=== PATIENT | male | born 1965 | race Hispanic/Latino ===

== ENCOUNTER 2016-06-19 01:21 | Emergency (ER) | payer MEDICAID, OTHER ==
[2016-06-19 01:28] VITALS: BMI 27.3
--- NOTE | 2016-06-19 01:43 | ED PDOC ---
Arrival/HPI - General Chief Complaint: Chest Pain Time Seen by Provider: 06/19/16 01:30 Historian: Patient - History of Present Illness Narrative History of Present Illness (Text): 06/19/16 01:39 Albert Cee is a 51 year old male, with a history of substance abuse, presents to the emergency department complaining of intermittent chest pain for past 2 days. Describes the quality of pain as a cramping sensation to the chest which radiates down to left arm. Patient evaluated by PMD who advised patient to present to emergency department if symptoms persisted. Denies fever, chills, headache, dizziness, difficulty breathing, nausea, vomiting, diarrhea, urinary symptoms or any other complaints at this time. Time/Duration: < week (2 days ) Symptom Onset: Gradual Symptom Course: Intermittent Quality: Cramping Activities at Onset: Light Context: Home Past Medical History - Provider Review Nursing Documentation Reviewed: Yes - Past History Past History: No Previous - Infectious Disease Hx of Infectious Diseases: None - Tetanus Immunization Tetanus Immunization: Unknown - Past Medical History Past Medical History: Non-Contributing - Cardiac Hx Cardiac Disorders: No Hx Hypertension: No - Pulmonary Hx Respiratory Disorders: No Hx Tuberculosis: No - Neurological Hx Neurological Disorder: No Hx Seizures: No - HEENT Hx HEENT Disorder: No - Renal Hx Renal Disorder: No - Endocrine/Metabolic Hx Endocrine Disorders: No - Hematological/Oncological Hx Blood Disorders: No Hx Cancer: No - Integumentary Hx Dermatological Disorder: No - Musculoskeletal/Rheumatological Hx Back Pain: Yes (chronic) Hx Falls: No Hx Herniated Disk: Yes Other/Comment: knee pain - Gastrointestinal Hx Gastrointestinal Disorders: No - Genitourinary/Gynecological Hx Genitourinary Disorders: No Hx Sexually Transmitted Diseases: No - Psychiatric Hx Anxiety: Yes Hx Depression: Yes Hx Substance Use: Yes (cannabis) - Past Surgical History Past Surgical History: Non-Contributing - Surgical History Other/Comment: L4 L5 herniated disk /r ankle/r knee x2/l knee x2/r shoulder/ fossa l-3,l-4,l-5 - Anesthesia Hx Anesthesia: Yes Hx Anesthesia Reactions: No Hx Malignant Hyperthermia: No - Suicidal Assessment Feels Threatened In Home Enviroment: No Family/Social History - Physician Review Nursing Documentation Reviewed: Yes Family/Social History: No Known Family HX Smoking Status: Heavy Smoker > 10 Cigarettes Daily Hx Alcohol Use: Yes (as per patient he stopped drinking) Hx Substance Use: Yes (cannabis) Substance used: pcp last wk Hx Substance Use Treatment: No Allergies/Home Meds Allergies/Adverse Reactions: Allergies No Known Allergies Allergy (Verified 05/10/16 02:45) Home Medications: Home Meds Medication Instructions Recorded Confirmed Alprazolam [Xanax] 0.5 mg PO DAILY 10/25/15 05/10/16 oxyCODONE [oxyCODONE Immediate 30 mg PO 5XD 10/25/15 05/10/16 Release Tab] Morphine [Morphine Sulfate] 15 mg PO TID 05/10/16 05/10/16 Review of Systems - Physician Review All systems were reviewed & negative as marked: Yes - Review of Systems Constitutional: Normal. absent: Fatigue, Fevers Respiratory: absent: SOB, Cough, Sputum Cardiovascular: Chest Pain. absent: Palpitations Gastrointestinal: absent: Abdominal Pain, Diarrhea, Nausea, Vomiting Musculoskeletal: Other (radiating down left arm ) Neurological: Normal. absent: Headache, Dizziness Psychiatric: Normal Physical Exam Vital Signs Reviewed: Yes Vital Signs Temp Pulse Resp BP Pulse Ox 06/19/16 05:53 75 18 120/78 99 06/19/16 03:31 62 16 118/69 96 06/19/16 01:30 97.7 F 57 L 16 115/70 98 Temperature: Afebrile Blood Pressure: Normal Pulse: Regular Respiratory Rate: Normal Appearance: Positive for: Well-Appearing, Non-Toxic, Comfortable Pain Distress: None Mental Status: Positive for: Alert and Oriented X 3 - Systems Exam Head: Present: Atraumatic, Normocephalic Pupils: Present: PERRL Extroacular Muscles: Present: EOMI Conjunctiva: Present: Normal Respiratory/Chest: Present: Clear to Auscultation, Good Air Exchange. No: Respiratory Distress, Accessory Muscle Use Cardiovascular: Present: Regular Rate and Rhythm, Normal S1, S2. No: Murmurs Abdomen: Present: Normal Bowel Sounds. No: Tenderness, Distention, Peritoneal Signs Upper Extremity: Present: Normal Inspection. No: Cyanosis, Edema Lower Extremity: Present: Normal Inspection. No: Edema Neurological: Present: GCS=15, CN II-XII Intact, Speech Normal Skin: Present: Warm, Dry, Normal Color. No: Rashes Psychiatric: Present: Alert, Oriented x 3, Normal Insight, Normal Concentration Medical Decision Making ED Course and Treatment: 06/19/16 01:45 Impression: A 51 year old male who presents to the emergency department complaining of chest pain radiating to left arm for 2 days. Plan: -- EKG -- Labs, cardiac enzymes -- Chest X-ray -- Urinalysis -- Reassess and disposition Progress Notes: 06/19/16 01:46 EKG reviewed by me: NSR @ 60 bpm. normal axis. normal interval. 06/19/16 05:45 EKG reviewed by me: NSR @ 60 bpm. Normal [place]. Normal interval. Patient was offered admission to hospital for chest pain, but patient states he wants to sign out against medical advice. I personally advised patient to stay in the hospital, but patient states he understands the risks of leaving and is persistent. The patient is choosing to leave against medical advice. I have personally explained to the patient that choosing to do so may result in permanent bodily harm or . I have discussed at great length that without further evaluation and monitoring there may be unforeseen circumstances and/or deterioration causing permanent bodily harm or as a result of their choice. The patient is alert, oriented, and shows the mental capacity to make clear decisions regarding the patients health care at this time. The patient continues to wish to leave against medical advice. The patient has been advised that they should return to the emergency room immediately if they change their mind at any time, or if their condition begins to change or worsen in any way. - Lab Interpretations Lab Results: 06/19/16 02:40 06/19/16 02:40 Lab Results 06/19/16 02:40: WBC 8.9, RBC 4.43, Hgb 13.2 L, Hct 38.9 L, MCV 87.8, MCH 29.8, MCHC 33.9, RDW 13.8, Plt Count 323, MPV 10.8, Gran % 54.2, Lymph % (Auto) 35.6 H , [place] % (Auto) 8.0 H, Eos % (Auto) 2.0, Baso % (Auto) 0.2, Gran # 4.80, Lymph # 3.2, [place] # 0.7 H, Eos # 0.2, Baso # 0.02, Sodium 138, Potassium 3.8, Chloride 103, Carbon Dioxide 28, Anion Gap 11, BUN 22 H, Creatinine 0.8, Est GFR ( Amer) > 60, Est GFR (Non-Af Amer) > 60, Random Glucose 94, Calcium 8.7, Magnesium 2.0, Total Bilirubin 0.4, AST 23, ALT 15, Alkaline Phosphatase 63 , Lactate Dehydrogenase 459, Total Creatine Kinase 44, Troponin I < 0.01, Total Protein 6.9, Albumin 3.6, Globulin 3.3, Albumin/Globulin Ratio 1.1 I have reviewed the lab results: Yes - RAD Interpretation Radiology Orders: 06/19/16 01:40 CHEST PORTABLE [RAD] Stat - EKG Interpretation Interpreted by ED Physician: Yes Type: 12 lead EKG - Scribe Statement The provider has reviewed the documentation as recorded by the Jesus Knapp Provider Attestation: All medical record entries made by the Jesus were at my direction and personally dictated by me. I have reviewed the chart and agree that the record accurately reflects my personal performance of the history, physical exam, medical decision making, and the department course for this patient. I have also personally directed, reviewed, and agree with the discharge instructions and disposition. Disposition/Present on Arrival - Present on Arrival Any Indicators Present on Arrival: No History of DVT/PE: No History of Uncontrolled Diabetes: No Urinary Catheter: No History of Decub. Ulcer: No History Surgical Site Infection Following: None - Disposition Have Diagnosis and Disposition been Completed?: Yes Diagnosis: Chest pain Disposition: AGAINST MEDICAL ADVICE Disposition Time: 06:00 Condition: UNKNOWN Discharge Instructions (ExitCare): Chest Pain (ED)
[2016-06-19 02:47] LABS: ADD MANUAL DIFF? NO
[2016-06-19 03:06] LABS: BASO # 0.02 K/mm3 (0.0-2.0); BASO % 0.2 % (0.0-3.0); EOS # 0.2 (0.0-0.7); GRAN % 54.2 % (50.0-68.0); HEMATOCRIT 38.9 % (42.0-52.0); LYMPH # 3.2 (1.2-3.4); LYMPH % 35.6 % (22.0-35.0); MEAN CELL VOLUME 87.8 fL (80.0-105.0); MEAN CORPUSCULAR HEMOGLOBIN 29.8 pg (25.0-35.0); MEAN CORPUSCULAR HGB CONC 33.9 g/dl (31.0-37.0); MEAN PLATELET VOLUME 10.8 fl (7.0-11.0); MONO # 0.7 (0.1-0.6); PLATELET COUNT 323 10^3/uL (120.0-450.0); RED CELL DISTRIBUTION WIDTH 13.8 % (11.5-14.5); WHITE BLOOD COUNT 8.9 10^3/ul (4.5-11.0)
[2016-06-19 03:10] LABS: ALB/GLOB RATIO 1.1 (1.1-1.8); ALKALINE PHOSPHATASE 63 U/L (38-133); ALT/SGPT 15 U/L (7-56); AST/SGOT 23 U/L (15-59); BILIRUBIN,TOTAL 0.4 mg/dL (0.2-1.3); BLOOD UREA NITROGEN 22 mg/dL (7-21); CALCIUM 8.7 mg/dL (8.4-10.5); CARBON DIOXIDE 28 mmol/L (21-33); CHLORIDE 103 mmol/L (98-107); GFR AFRICAN-AMERICAN > 60; GLUCOSE,RANDOM 94 mg/dL (70-110); POTASSIUM 3.8 mmol/L (3.6-5.0); SODIUM 138 mmol/L (132-148); TOTAL PROTEIN 6.9 g/dL (5.8-8.3)
[2016-06-19 03:22] VITALS: TEMP 97.7
[2016-06-19 03:23] LABS: TROPONIN I < 0.01 ng/mL
[2016-06-19 05:54] VITALS: BP 120/78; PULSE 75; RESP 18; O2SAT 99
--- NOTE | 2016-06-19 08:33 | RAD ---
HISTORY: cp COMPARISON: 05/10/2016 FINDINGS: LUNGS: No active pulmonary disease. PLEURA: No significant pleural effusion identified, no pneumothorax apparent. CARDIOVASCULAR: Normal. OSSEOUS STRUCTURES: No significant abnormalities. VISUALIZED UPPER ABDOMEN: Normal. OTHER FINDINGS: None. IMPRESSION: No active disease.
--- NOTE | 2016-06-19 18:33 | CARD ---
APPROVED REPORT EKG Measurement Heart [id number] <Conclusion> Normal sinus rhythm Normal ECG
== END 2016-06-19 06:04 | disposition left against medical advice (07) ==
LOC: ED 01:21
DX: R07.9 Chest pain, unspecified (principal); F17.210 Nicotine dependence, cigarettes, uncomplicated

== ENCOUNTER 2016-06-23 01:33 | Observation (INO) | payer OTHER ==
[2016-06-23 01:35] VITALS: BMI 60.3
--- NOTE | 2016-06-23 01:48 | ED PDOC ---
Arrival/HPI - General Chief Complaint: Chest Pain Time Seen by Provider: 06/23/16 01:34 Historian: Patient - History of Present Illness Narrative History of Present Illness (Text): 06/23/16 01:48 David Cee is a 51 year old male smoker, whose past medical history includes chronic back pain and substance abuse, who presents to the ED complaining of mid -sternal chest pain tonight. Patient denies any relieving or exacerbating factors. Patient denies any fever, chills, shortness of breath, nausea, vomiting , diarrhea, urinary symptoms, neck pain, headache, dizziness, or any other complaints. PMD: Dr. Melvi Welsh Time/Duration: Other (tonight) Symptom Onset: Gradual Symptom Course: Unchanged Activities at Onset: Rest, Light Context: Home Past Medical History - Provider Review Nursing Documentation Reviewed: Yes - Past History Past History: No Previous - Infectious Disease Hx of Infectious Diseases: None - Tetanus Immunization Tetanus Immunization: Unknown - Past Medical History Past Medical History: Non-Contributing - Cardiac Hx Cardiac Disorders: No Hx Hypertension: No - Pulmonary Hx Respiratory Disorders: No Hx Tuberculosis: No - Neurological Hx Neurological Disorder: No Hx Seizures: No - HEENT Hx HEENT Disorder: No - Renal Hx Renal Disorder: No - Endocrine/Metabolic Hx Endocrine Disorders: No - Hematological/Oncological Hx Blood Disorders: No Hx Cancer: No - Integumentary Hx Dermatological Disorder: No - Musculoskeletal/Rheumatological Hx Back Pain: Yes (chronic) Hx Falls: No Hx Herniated Disk: Yes Other/Comment: knee pain - Gastrointestinal Hx Gastrointestinal Disorders: No - Genitourinary/Gynecological Hx Genitourinary Disorders: No Hx Sexually Transmitted Diseases: No - Psychiatric Hx Anxiety: Yes Hx Depression: Yes Hx Substance Use: Yes (cannabis) - Past Surgical History Past Surgical History: Non-Contributing - Surgical History Other/Comment: L4 L5 herniated disk /r ankle/r knee x2/l knee x2/r shoulder/ fossa l-3,l-4,l-5 - Anesthesia Hx Anesthesia: Yes Hx Anesthesia Reactions: No Hx Malignant Hyperthermia: No - Suicidal Assessment Feels Threatened In Home Enviroment: No Family/Social History - Physician Review Nursing Documentation Reviewed: Yes Family/Social History: No Known Family HX Smoking Status: Heavy Smoker > 10 Cigarettes Daily Hx Alcohol Use: Yes (as per patient he stopped drinking) Hx Substance Use: Yes (cannabis) Substance used: pcp last wk Hx Substance Use Treatment: No Allergies/Home Meds Allergies/Adverse Reactions: Allergies No Known Allergies Allergy (Verified 05/10/16 02:45) Home Medications: Home Meds Medication Instructions Recorded Confirmed Alprazolam [Xanax] 0.5 mg PO DAILY 10/25/15 05/10/16 oxyCODONE [oxyCODONE Immediate 30 mg PO 5XD 10/25/15 05/10/16 Release Tab] Morphine [Morphine Sulfate] 15 mg PO TID 05/10/16 05/10/16 Review of Systems - Physician Review All systems were reviewed & negative as marked: Yes - Review of Systems Constitutional: Normal. absent: Fevers Eyes: Normal ENT: Normal Respiratory: Normal. absent: SOB Cardiovascular: Chest Pain Gastrointestinal: Normal. absent: Abdominal Pain, Diarrhea, Nausea, Vomiting Genitourinary Male: Normal. absent: Dysuria, Frequency, Hematuria, Urinary Output Changes Musculoskeletal: Normal. absent: Neck Pain Skin: Normal Neurological: Normal. absent: Headache, Dizziness Endocrine: Normal Hemo/Lymphatic: Normal Psychiatric: Normal Physical Exam Vital Signs Reviewed: Yes Vital Signs Temp Pulse Resp BP Pulse Ox 06/23/16 04:48 97.7 F 58 L 17 134/74 94 L 06/23/16 02:02 98.0 F 75 17 129/62 94 L Temperature: Afebrile Blood Pressure: Normal Pulse: Regular Respiratory Rate: Normal Appearance: Positive for: Well-Appearing, Non-Toxic, Comfortable Pain Distress: None Mental Status: Positive for: Alert and Oriented X 3 - Systems Exam Head: Present: Atraumatic, Normocephalic Pupils: Present: PERRL Extroacular Muscles: Present: EOMI Conjunctiva: Present: Normal Mouth: Present: Moist Mucous Membranes Neck: Present: Normal Range of Motion Respiratory/Chest: Present: Clear to Auscultation, Good Air Exchange. No: Respiratory Distress, Accessory Muscle Use Cardiovascular: Present: Regular Rate and Rhythm, Normal S1, S2. No: Murmurs Abdomen: Present: Normal Bowel Sounds. No: Tenderness, Distention, Peritoneal Signs Upper Extremity: Present: Normal Inspection. No: Cyanosis, Edema Lower Extremity: Present: Normal Inspection. No: Edema Neurological: Present: GCS=15, CN II-XII Intact, Speech Normal Skin: Present: Warm, Dry, Normal Color. No: Rashes Psychiatric: Present: Alert, Oriented x 3, Normal Insight, Normal Concentration Medical Decision Making ED Course and Treatment: 06/23/16 01:48 Impression: 51 year old male complaining of chest pain. Differential Diagnosis included but are not limited to: Plan: --EKG --Chest Xray --Urinalysis --Labs, cardiac enzymes -- Reassess and disposition Prior Visits: Notes and results from previous visits were reviewed. On 06/19/16 patient was seen for chest pain. Patient signed out against medical advice. Progress Notes: EKG: Ordered, reviewed, and independently interpreted the EKG. Rate : 71 BPM Rhythm : NSR Interpretation : No ST-segment elevations or depressions, no T-wave inversions, normal intervals. Comparison : No acute change from previous EKG on 06/19/16. 06/23/16 03:00 Reviewed radiology, Chest X-ray shows no active disease. 06/23/16 03:[address] Welsh, who is aware and agrees with plan. Accepts pt in to his service. Pt will go to Telemetry observation for chest pain. Pt is no acute distress. Discussed results and hospital observation plan with pt , who is aware and verbalizes understanding. - Lab Interpretations Lab Results: 06/23/16 01:53 06/23/16 01:53 Lab Results 06/23/16 01:53: WBC 7.0 D, RBC 4.52, Hgb 13.3 L, Hct 39.6 L, MCV 87.6, MCH 29.4 , MCHC 33.6, RDW 13.8, Plt Count 327, MPV 10.9, Gran % 45.7 L, Lymph % (Auto) 44.2 H, [place] % (Auto) 7.2 H, Eos % (Auto) 2.6, Baso % (Auto) 0.3, Gran # 3.19, Lymph # 3.1, [place] # 0.5, Eos # 0.2, Baso # 0.02, Sodium 140, Potassium 3.7, Chloride 104, Carbon Dioxide 27, Anion Gap 13, BUN 23 H, Creatinine 0.9, Est GFR ( Amer) > 60, Est GFR (Non-Af Amer) > 60, Random Glucose 152 H, Calcium 8.9, Magnesium 2.1, Total Bilirubin 0.4, AST 24, ALT 33, Alkaline Phosphatase 67, Lactate Dehydrogenase 482, Total Creatine Kinase 68, Troponin I < 0.01, Total Protein 7.4, Albumin 3.9, Globulin 3.5, Albumin/Globulin Ratio 1.1 I have reviewed the lab results: Yes - RAD Interpretation Narrative RAD Interpretations (Text): Chest X-ray shows no active disease. Radiology Orders: 06/23/16 01:40 CHEST PORTABLE [RAD] Stat Call Center Manager: ED Physician - EKG Interpretation Interpreted by ED Physician: Yes Type: 12 lead EKG - Medication Orders Current Medication Orders: Discontinued Medications Acetaminophen (Tylenol 325mg Tab) 650 mg PO Q4H PRN PRN Reason: Fever >100.5 F Aspirin (Ecotrin) 325 mg PO STAT STA Stop: 06/23/16 02:23 Last Admin: 06/23/16 05:14 Dose: 325 MG Nitroglycerin (Nitro-Bid 2% Oint) 1 ea TOP ONCE STA Stop: 06/23/16 03:35 Last Admin: 06/23/16 05:14 Dose: 1 EA - Scribe Statement The provider has reviewed the documentation as recorded by the Jesus Travis training under Venus Hale. All medical record entries made by the Jesus were at my direction and personally dictated by me. I have reviewed the chart and agree that the record accurately reflects my personal performance of the history, physical exam, medical decision making, and the department course for this patient. I have also personally directed, reviewed, and agree with the discharge instructions and disposition. Disposition/Present on Arrival - Present on Arrival Any Indicators Present on Arrival: No History of DVT/PE: No History of Uncontrolled Diabetes: No Urinary Catheter: No History of Decub. Ulcer: No History Surgical Site Infection Following: None - Disposition Have Diagnosis and Disposition been Completed?: Yes Diagnosis: Chest pain Disposition: HOSPITALIZED Disposition Time: 03:35 Condition: FAIR
[2016-06-23 02:03] VITALS: O2SAT 94
[2016-06-23 02:10] LABS: ADD MANUAL DIFF? NO
[2016-06-23 02:16] LABS: BASO # 0.02 K/mm3 (0.0-2.0); BASO % 0.3 % (0.0-3.0); EOS # 0.2 (0.0-0.7); EOS % 2.6 % (1.5-5.0); GRAN # 3.19 (1.4-6.5); GRAN % 45.7 % (50.0-68.0); HEMATOCRIT 39.6 % (42.0-52.0); LYMPH # 3.1 (1.2-3.4); LYMPH % 44.2 % (22.0-35.0); MEAN CELL VOLUME 87.6 fL (80.0-105.0); MEAN CORPUSCULAR HEMOGLOBIN 29.4 pg (25.0-35.0); MEAN CORPUSCULAR HGB CONC 33.6 g/dl (31.0-37.0); MEAN PLATELET VOLUME 10.9 fl (7.0-11.0); MONO # 0.5 (0.1-0.6); MONO % 7.2 % (1.0-6.0); PLATELET COUNT 327 10^3/uL (120.0-450.0); RED CELL DISTRIBUTION WIDTH 13.8 % (11.5-14.5)
[2016-06-23] MEDS ORDERED: Aspirin 325 mg EC Tablets PO STA (02:22)
[2016-06-23 02:26] LABS: ALB/GLOB RATIO 1.1 (1.1-1.8); ALKALINE PHOSPHATASE 67 U/L (38-133); ALT/SGPT 33 U/L (7-56); AST/SGOT 24 U/L (15-59); BILIRUBIN,TOTAL 0.4 mg/dL (0.2-1.3); BLOOD UREA NITROGEN 23 mg/dL (7-21); CALCIUM 8.9 mg/dL (8.4-10.5); CARBON DIOXIDE 27 mmol/L (21-33); CHLORIDE 104 mmol/L (98-107); GFR AFRICAN-AMERICAN > 60; GLUCOSE,RANDOM 152 mg/dL (70-110); MAGNESIUM 2.1 mg/dL (1.7-2.2); POTASSIUM 3.7 mmol/L (3.6-5.0); SODIUM 140 mmol/L (132-148); TOTAL PROTEIN 7.4 g/dL (5.8-8.3)
[2016-06-23 02:38] LABS: TROPONIN I < 0.01 ng/mL
[2016-06-23] MEDS ORDERED: Nitroglycerin 2% Ointment Foilpak UD TOP STA (03:34)
--- NOTE | 2016-06-23 08:03 | RAD ---
HISTORY: cp COMPARISON: No prior. FINDINGS: LUNGS: No active pulmonary disease. PLEURA: No significant pleural effusion identified, no pneumothorax apparent. CARDIOVASCULAR: Normal. OSSEOUS STRUCTURES: No significant abnormalities. VISUALIZED UPPER ABDOMEN: Normal. OTHER FINDINGS: None. IMPRESSION: No active disease.
[2016-06-23 11:40] VITALS: BP 96/63; PULSE 54; RESP 20; TEMP 98.2
--- NOTE | 2016-06-23 14:08 | HP ---
HISTORY OF PRESENT ILLNESS: The patient is a 51-year-old male with a history of chronic low back shahla n and opiate dependence who presented to the Emergency Department complaining of chest pain which was nonradiating. The patient denied any shortness of breath. No nausea, no vomiting, no diaphoresis. He was admitted to the telemetry unit for observation. PAST MEDICAL HISTORY: Negative for hypertension, diabetes or heart disease. PAST SURGICAL HISTORY: The patient has no significant past surgical history. patient has a history of herniated disks and chronic low back pain. CURRENT MEDICATIONS: Include oxycodone 30 mg 5 times per day and MS Contin 30 mg 3 times per day as well as Xanax 0.5 mg once a day. ALLERGIES: The patient has no known allergies. SOCIAL HISTORY: The patient has an approximately 63-76-cbvg-year history of tobacco use. There is n o alcohol use or IV drug use. FAMILY HISTORY: Noncontributory. REVIEW OF SYSTEMS: As above. PHYSICAL EXAMINATION: GENERAL: The patient is a well-developed male in no acute distress. HEENT: Head is normocephalic, atraumatic. Pupils equal, round, reactive to light. Extraocular move ments are intact. NECK: Supple with no thyromegaly, no carotid bruit. LUNGS: Clear. HEART: Regular rate and rhythm. ABDOMEN: Soft, nontender. Bowel sounds are normoactive. EXTREMITIES: Without cyanosis, clubbing or edema. There is decreased range of motion of the lumbosa cral spine secondary to pain. NEUROLOGIC: The patient is awake and oriented x 3 without focal sensory or motor deficits. SKIN: Warm and dry. LABORATORY DATA: WBC 7.0, hemoglobin 13.3, hematocrit 39.6. Sodium 140, potassium 3.7, chloride 104 , CO2 27, BUN 23, creatinine 0.9, glucose 152. Troponin is less than 0.01. Chest x-ray shows no act sonu disease. EKG shows sinus rhythm with a rate of 71 with no acute ischemic changes. IMPRESSION: 1. Chest pain/atypical. 2. Chronic low back pain with opiate dependence. 3. Tobacco abuse, possible underlying chronic obstructive pulmonary disease. PLAN: We will obtain a cardiology consult with Drs. Arguello/Melvin and possible discharge to home in [facility] with followup for stress test as an outpatient. The patient was counseled regarding t obacco cessation. Richard Welsh JD, MD cc: [id number] TT: 06/23/2016 14:07:38 tn
--- NOTE | 2016-06-23 14:57 | CARD ---
APPROVED REPORT EKG Measurement Heart [id number] <Conclusion> Normal sinus rhythm Normal ECG
--- NOTE | 2016-06-23 20:41 | DS ---
HOSPITAL COURSE: The patient is a 51-year-old male who was admitted to the telemetry unit for [facility] for chest pain. Troponin was negative and EKG showed sinus rhythm with a rate of 71 with no ac cathy changes. The patient denies any chest pain or shortness of breath at the present time and is med ically stable for discharge. PHSYCIAL EXAMINATION: As per admission history and physical dictated 06/23/2016. IMPRESSION: 1. Atypical chest pain. 2. Mild hyperglycemia. 3. Chronic low back pain with opiate dependence. PLAN: The patient will be discharged to home on the following medications: Oxycodone 150 mg 5 times daily, MS Contin 30 mg 3 times daily, and Xanax 0.5 mg once a day. He will be maintained on a heart -healthy diet. Activities ad libitum. He will be seen in my office as an outpatient within the next 1-2 weeks and will follow up with cardiology for stress test as well. He was advised to return to [facility] Emergency Room should his chest pain reoccur. Richard Welsh JD, MD cc: [id number] TT: 06/23/2016 20:40:45 yana
--- NOTE | 2016-06-23 21:21 | CON ---
DATE: 06/23/2016 SERVICE: Cardiology. REASON FOR CONSULTATION: Cardiac evaluation, chest pain, patient discharged home, on way home. BRIEF CLINICAL HISTORY: A 51-year-old male with history of chronic back pain and opiate dependence, presented to the Emergency Room with complaint of chest pain underneath the left breast, nonradiating . Denies any chest pain, dyspnea on exertion or chest pain on exertion. PAST MEDICAL HISTORY: Significant for back pain, on multiple narcotics, and Xanax home. PAST SURGICAL HISTORY: Nothing significant. SOCIAL HISTORY: Active tobacco abuse, 1 pack a day. Denies any history of substance abuse. Sociall y drinks. ALLERGIES: No known drug allergy. CURRENT MEDICATIONS: The patient is taking oxycodone, morphine and Xanax. REVIEW OF SYSTEMS: As per HPI. PHYSICAL EXAMINATION: VITAL SIGNS: Temperature afebrile, heart rate 54, blood pressure 134/74. HEENT: PERRLA. Extraocular muscles intact. NECK: Supple. No carotid bruits. No thyromegaly. CHEST: Clear to auscultation. HEART: S1, S2 regular. ABDOMEN: Soft. EXTREMITIES: Clubbing and cyanosis negative. EKG showed normal sinus, no acute changes, within normal limits. LABORATORY DATA: Blood workup as follows: WBC 7, hemoglobin 13, hematocrit 39.6, platelet count 327 . Chemistry shows sodium 140, potassium , chloride 104, carbon dioxide 27, anion gap of 13, BUN 23, creatinine 0.9, troponin 0.01. IMPRESSION: Atypical chest pain, but given the history of substance abuse and lifestyle as well as r andom sugar positive, diabetic, so need to rule out coronary artery disease. Since the patient is be ing discharged, in the process of going home, we will schedule a stress test in 1-2 weeks. Discussed with the patient. The patient agreed. Will schedule for a stress test as outpatient. We will foll ow with you. Thank you, Dr. Welsh, for providing the opportunity in taking care of the patient. We will follow wi th you. Kade Charles MD cc:Richard Welsh JD, MD [phone] TT: 06/23/2016 21:21:37 Confirmation # [id number] Dictation # [id number] rn
== END 2016-06-23 13:30 | disposition home or self-care (01) ==
LOC: ED 01:33 → ERH 03:33 → 2RSO 05:48
PROVIDERS: ADMIT Internal Medicine; ATTEND Internal Medicine
DX: R07.89 Other chest pain (principal); E11.65 Type 2 diabetes mellitus with hyperglycemia; F11.20 Opioid dependence, uncomplicated; G89.29 Other chronic pain; Z72.0 Tobacco use; M54.9 Dorsalgia, unspecified; M51.26 Other intervertebral disc displacement, lumbar region; M25.569 Pain in unspecified knee; F41.9 Anxiety disorder, unspecified; F32.89 Other specified depressive episodes; R40.2412 Glasgow coma scale score 13-15, at arrival to emergency department; J44.9 Chronic obstructive pulmonary disease, unspecified
CPT/HCPCS: 71010; 80053; 82550; 83615; 83735; 84484; 85025; 93005; 99284; G0378

== ENCOUNTER 2016-06-24 22:36 | Observation (INO) | payer OTHER ==
[2016-06-24 22:37] VITALS: BMI 29.0
--- NOTE | 2016-06-24 23:05 | ED PDOC ---
Arrival/HPI - General Chief Complaint: Chest Pain Time Seen by Provider: 06/24/16 22:37 Historian: Patient - History of Present Illness Narrative History of Present Illness (Text): 06/24/16 23:04 David Cee is a 51 year old male smoker, whose past medical history includes chronic back pain and substance abuse, who presents to the ED complaining of mid -sternal chest pain tonight. Patient was recently seen in the Emergency department for similar complaints on 06/22/2016 and admitted to the hospital for further evaluation. Patient denies any fever, chills, shortness of breath, nausea, vomiting, diarrhea, urinary symptoms, neck pain, headache, dizziness, or any other complaints. PMD: Dr. Melvi Welsh Time/Duration: Other (tonight) Symptom Onset: Gradual Symptom Course: Unchanged Activities at Onset: Rest, Light Context: Home Past Medical History - Provider Review Nursing Documentation Reviewed: Yes - Past History Past History: No Previous - Infectious Disease Hx of Infectious Diseases: None - Tetanus Immunization Tetanus Immunization: Unknown - Past Medical History Past Medical History: Non-Contributing - Cardiac Hx Cardiac Disorders: No Hx Hypertension: No - Pulmonary Hx Respiratory Disorders: No Hx Tuberculosis: No - Neurological Hx Neurological Disorder: No Hx Seizures: No - HEENT Hx HEENT Disorder: No - Renal Hx Renal Disorder: No - Endocrine/Metabolic Hx Endocrine Disorders: No - Hematological/Oncological Hx Blood Disorders: No Hx Cancer: No - Integumentary Hx Dermatological Disorder: No - Musculoskeletal/Rheumatological Hx Back Pain: Yes (chronic) Hx Falls: No Hx Herniated Disk: Yes Other/Comment: knee pain - Gastrointestinal Hx Gastrointestinal Disorders: No - Genitourinary/Gynecological Hx Genitourinary Disorders: No Hx Sexually Transmitted Diseases: No - Psychiatric Hx Anxiety: Yes Hx Depression: Yes Hx Substance Use: Yes (cannabis) - Past Surgical History Past Surgical History: Non-Contributing - Surgical History Other/Comment: L4 L5 herniated disk /r ankle/r knee x2/l knee x2/r shoulder/ fossa l-3,l-4,l-5 - Anesthesia Hx Anesthesia: Yes Hx Anesthesia Reactions: No Hx Malignant Hyperthermia: No - Suicidal Assessment Feels Threatened In Home Enviroment: No Family/Social History - Physician Review Nursing Documentation Reviewed: Yes Family/Social History: No Known Family HX Smoking Status: Heavy Smoker > 10 Cigarettes Daily Hx Alcohol Use: Yes (as per patient he stopped drinking) Hx Substance Use: Yes (cannabis) Substance used: pcp last wk Hx Substance Use Treatment: No Allergies/Home Meds Allergies/Adverse Reactions: Allergies No Known Allergies Allergy (Verified 05/10/16 02:45) Home Medications: Home Meds Medication Instructions Recorded Confirmed Alprazolam [Xanax] 0.5 mg PO DAILY 10/25/15 05/10/16 oxyCODONE [oxyCODONE Immediate 30 mg PO 5XD 10/25/15 05/10/16 Release Tab] Morphine [Morphine Sulfate] 15 mg PO TID 05/10/16 05/10/16 Review of Systems - Physician Review All systems were reviewed & negative as marked: Yes - Review of Systems Constitutional: Normal. absent: Fevers Eyes: Normal ENT: Normal Respiratory: Normal. absent: SOB, Cough Cardiovascular: Chest Pain Gastrointestinal: Normal. absent: Abdominal Pain, Diarrhea, Nausea, Vomiting Genitourinary Male: Normal. absent: Dysuria, Frequency, Hematuria, Urinary Output Changes Musculoskeletal: Normal. absent: Back Pain, Neck Pain Skin: Normal. absent: Rash Neurological: Normal. absent: Headache, Dizziness Endocrine: Normal Hemo/Lymphatic: Normal Psychiatric: Normal Physical Exam Vital Signs Reviewed: Yes Vital Signs Temp Pulse Resp BP Pulse Ox 06/25/16 01:44 98.0 F 59 L 18 114/64 98 06/24/16 22:49 97.9 F 64 16 127/67 96 Temperature: Afebrile Blood Pressure: Normal Pulse: Regular Respiratory Rate: Normal Appearance: Positive for: Well-Appearing, Non-Toxic, Comfortable Pain Distress: None Mental Status: Positive for: Alert and Oriented X 3 - Systems Exam Head: Present: Atraumatic, Normocephalic Pupils: Present: PERRL Extroacular Muscles: Present: EOMI Conjunctiva: Present: Normal Mouth: Present: Moist Mucous Membranes Neck: Present: Normal Range of Motion Respiratory/Chest: Present: Clear to Auscultation, Good Air Exchange. No: Respiratory Distress, Accessory Muscle Use Cardiovascular: Present: Regular Rate and Rhythm, Normal S1, S2. No: Murmurs Abdomen: Present: Normal Bowel Sounds. No: Tenderness, Distention, Peritoneal Signs Back: Present: Normal Inspection Upper Extremity: Present: Normal Inspection. No: Cyanosis, Edema Lower Extremity: Present: Normal Inspection. No: Edema Neurological: Present: GCS=15, CN II-XII Intact, Speech Normal Skin: Present: Warm, Dry, Normal Color. No: Rashes Psychiatric: Present: Alert, Oriented x 3, Normal Insight, Normal Concentration Medical Decision Making ED Course and Treatment: 06/24/16 23:04 Impression: 51 year old male complaining of mid-sternal chest pain tonight. Plan: -- EKG -- Chest X-ray -- Labs, cardiac enzymes -- Reassess and disposition Prior Visits: Notes and results from previous visits were reviewed. On 06/23/2016, pt was seen in the Emergency department for chest pain. Pt was admitted to the hospital for further evaluation and schedule for outpatient stress test. Progress Notes: Reviewed EKG, NSR at [address]-segment elevations or depressions, no T-wave inversions, normal intervals. 06/24/16 23:[address] Welsh, who is aware and agrees with plan. Accepts pt in to his service. Pt will go to Telemetry observation for chest pain. Requests Dr. Arguello on consult. - Lab Interpretations I have reviewed the lab results: Yes - RAD Interpretation Radiology Orders: 06/24/16 22:50 CHEST PORTABLE [RAD] Stat Market Development Manager: ED Physician - EKG Interpretation Interpreted by ED Physician: Yes Type: 12 lead EKG - Scribe Statement The provider has reviewed the documentation as recorded by the Jesus Hale Provider Attestation: All medical record entries made by the Lucianaibdelon were at my direction and personally dictated by me. I have reviewed the chart and agree that the record accurately reflects my personal performance of the history, physical exam, medical decision making, and the department course for this patient. I have also personally directed, reviewed, and agree with the discharge instructions and disposition. Disposition/Present on Arrival - Present on Arrival Any Indicators Present on Arrival: No History of DVT/PE: No History of Uncontrolled Diabetes: No Urinary Catheter: No History of Decub. Ulcer: No History Surgical Site Infection Following: None - Disposition Have Diagnosis and Disposition been Completed?: Yes Diagnosis: Chest pain Disposition: HOSPITALIZED Disposition Time: 23:17 Patient Plan: Observation Patient Problems: Current Active Problems Problem Status Diagnosed Chest pain Acute Condition: GOOD
[2016-06-24 23:48] LABS: HEMATOCRIT 40.6 % (42.0-52.0); MEAN CELL VOLUME 88.1 fL (80.0-105.0); MEAN CORPUSCULAR HEMOGLOBIN 30.2 pg (25.0-35.0); MEAN CORPUSCULAR HGB CONC 34.2 g/dl (31.0-37.0); MEAN PLATELET VOLUME 10.9 fl (7.0-11.0)
[2016-06-24 23:55] LABS: ALB/GLOB RATIO 1.1 (1.1-1.8); ALKALINE PHOSPHATASE 64 U/L (38-133); ALT/SGPT 27 U/L (7-56); AST/SGOT 26 U/L (15-59); BILIRUBIN,TOTAL 0.5 mg/dL (0.2-1.3); BLOOD UREA NITROGEN 21 mg/dL (7-21); CALCIUM 8.9 mg/dL (8.4-10.5); CARBON DIOXIDE 30 mmol/L (21-33); CHLORIDE 104 mmol/L (98-107); GFR AFRICAN-AMERICAN > 60; GLUCOSE,RANDOM 123 mg/dL (70-110); SODIUM 140 mmol/L (132-148); TOTAL PROTEIN 7.4 g/dL (5.8-8.3)
[2016-06-25] LABS: PARTIAL THROMBOPLASTIN TIME 27.1 Seconds (23.7-30.8)
[2016-06-25 00:10] LABS: TROPONIN I < 0.01 ng/mL
[2016-06-25 06:38] VITALS: BP 142/87; PULSE 60; RESP 19; TEMP 97.5; O2SAT 95
--- NOTE | 2016-06-25 08:07 | RAD ---
HISTORY: Chest pain COMPARISON: 06/23/2016 FINDINGS: LUNGS: The lungs are well inflated and clear. PLEURA: No significant pleural effusion identified, no pneumothorax apparent. CARDIOVASCULAR: Normal. OSSEOUS STRUCTURES: No significant abnormalities. VISUALIZED UPPER ABDOMEN: Normal. OTHER FINDINGS: None. IMPRESSION: No active pulmonary disease.
--- NOTE | 2016-06-25 10:23 | CP.PCM.PN ---
Subjective - Date & Time of Evaluation Date of Evaluation: 06/25/16 Time of Evaluation: 09:20 - Subjective Subjective: Patient has decided to leave AMA for personal reasons. He was admitted for c/o chest pain,the cause of which is not yet ascertained.Given the patient's history it could be due to his substance abuse, or it could be due to a lung pathology or cardiac issues.He needs to undergo further tests to determine this.Not pursuing tests/treatment could result in . Patient states he understands what he is told.but does not want any more tests, examinations, or treatment at this time. He is alert,awake,oriented x 3 and is ambulatory.He is in no clinical distress. Patient was advised to follow up with his PMD and return to ER if needed. He said he will do so,and signed AMA and left. Dr Welsh was notified. Total time spent:25 minb Objective - Vital Signs/Intake and Output Vital Signs (last 24 hours): Temp Pulse Resp BP Pulse Ox 97.5 F L 60 19 142/87 95 06/25/16 06:00 06/25/16 06:00 06/25/16 06:00 06/25/16 06:00 06/25/16 06:00 Intake and Output: 06/25/16 06/25/16 06:59 18:59 Intake Total 0 Output Total 0 Balance 0 - Labs Labs: 06/24/16 23:30 06/24/16 23:30 PT 10.8 Seconds (9.9-11.8) 06/24/16 23:30 INR 1.00 (0.93-1.08) 06/24/16 23:30 APTT 27.1 Seconds (23.7-30.8) 06/24/16 23:30
--- NOTE | 2016-06-25 16:23 | CARD ---
APPROVED REPORT EKG Measurement Heart [id number] <Conclusion> Normal sinus rhythm Normal ECG
--- NOTE | 2016-06-25 16:38 | CARD ---
APPROVED REPORT EKG Measurement Heart [id number] <Conclusion> Poor data quality, interpretation may be adversely affected Normal sinus rhythm Normal ECG
== END 2016-06-25 10:24 | disposition left against medical advice (07) ==
LOC: ED 22:36 → ERH 23:11 → 2RNO 06-25 02:07
PROVIDERS: ADMIT Internal Medicine; ATTEND Internal Medicine
DX: R07.9 Chest pain, unspecified (principal); M54.9 Dorsalgia, unspecified; G89.29 Other chronic pain; M51.26 Other intervertebral disc displacement, lumbar region; M25.569 Pain in unspecified knee; F41.9 Anxiety disorder, unspecified; F32.89 Other specified depressive episodes; Z87.891 Personal history of nicotine dependence; Z87.898 Personal history of other specified conditions
CPT/HCPCS: 71010; 80053; 82550; 83615; 84484; 85027; 85610; 85730; 93005; 99285; G0378

== ENCOUNTER 2016-06-29 21:16 | Emergency (ER) | payer OTHER ==
[2016-06-29 21:21] VITALS: BMI 27.3
--- NOTE | 2016-06-29 21:22 | ED PDOC ---
Arrival/HPI - General Time Seen by Provider: 06/29/16 21:20 Historian: Patient - History of Present Illness Narrative History of Present Illness (Text): 06/29/16 21:21 51 year old male smoker with a past medical history that includes chronic back pain and substance abuse presents to the emergency department with left sided chest pain for last few hours. Patient states he has had this pain before but claims he was never evaluated by a doctor for it. Denies trauma or injury. Patient reports he takes Oxycodone and Morphine for the back pain. No other complaints at this time. PMD: Dr. Richard Welsh Time/Duration: 1 hour Symptom Onset: Sudden Symptom Course: Unchanged Modifying Factors (Text): None Associated Symptoms (Text): None Past Medical History - Provider Review Nursing Documentation Reviewed: Yes - Past History Past History: No Previous - Infectious Disease Hx of Infectious Diseases: None - Tetanus Immunization Tetanus Immunization: Unknown - Past Medical History Past Medical History: Non-Contributing - Cardiac Hx Cardiac Disorders: No Hx Hypertension: No - Pulmonary Hx Respiratory Disorders: No Hx Tuberculosis: No - Neurological Hx Neurological Disorder: No Hx Seizures: No - HEENT Hx HEENT Disorder: No - Renal Hx Renal Disorder: No - Endocrine/Metabolic Hx Endocrine Disorders: No - Hematological/Oncological Hx Blood Disorders: No Hx Cancer: No - Integumentary Hx Dermatological Disorder: No - Musculoskeletal/Rheumatological Hx Back Pain: Yes (chronic) Hx Falls: No Hx Herniated Disk: Yes Other/Comment: knee pain - Gastrointestinal Hx Gastrointestinal Disorders: No - Genitourinary/Gynecological Hx Genitourinary Disorders: No Hx Sexually Transmitted Diseases: No - Psychiatric Hx Anxiety: Yes Hx Depression: Yes Hx Substance Use: Yes (cannabis) - Past Surgical History Past Surgical History: Non-Contributing - Surgical History Other/Comment: L4 L5 herniated disk /r ankle/r knee x2/l knee x2/r shoulder/ fossa l-3,l-4,l-5 - Anesthesia Hx Anesthesia: Yes Hx Anesthesia Reactions: No Hx Malignant Hyperthermia: No - Suicidal Assessment Feels Threatened In Home Enviroment: No Family/Social History - Physician Review Nursing Documentation Reviewed: Yes Family/Social History: Unknown Family HX Smoking Status: Heavy Smoker > 10 Cigarettes Daily Hx Alcohol Use: Yes (as per patient he stopped drinking) Hx Substance Use: Yes (cannabis) Substance used: pcp last wk Hx Substance Use Treatment: No Allergies/Home Meds Allergies/Adverse Reactions: Allergies No Known Allergies Allergy (Verified 06/29/16 21:21) Home Medications: Home Meds Medication Instructions Recorded Confirmed Alprazolam [Xanax] 0.5 mg PO DAILY 10/25/15 06/29/16 oxyCODONE [oxyCODONE Immediate 30 mg PO 5XD 10/25/15 06/29/16 Release Tab] Morphine [Morphine Sulfate] 15 mg PO TID 05/10/16 06/29/16 Review of Systems - Physician Review All systems were reviewed & negative as marked: Yes - Review of Systems Eyes: absent: Vision Changes Respiratory: absent: SOB Cardiovascular: Chest Pain. absent: Edema Gastrointestinal: absent: Abdominal Pain Neurological: absent: Headache, Dizziness Physical Exam Vital Signs Temp Pulse Pulse Resp BP Pulse Ox 06/29/16 22:46 98.1 F 60 16 122/73 95 06/29/16 21:55 62 06/29/16 21:47 97.8 F 62 16 116/70 95 06/29/16 21:29 98.3 F 64 16 116/70 98 - Systems Exam Head: Present: Atraumatic, Normocephalic Conjunctiva: Present: Normal Neck: Present: Normal Range of Motion Respiratory/Chest: Present: Clear to Auscultation, Good Air Exchange, Other ( Left sided chest pain reproducible with palpation). No: Respiratory Distress, Accessory Muscle Use Cardiovascular: Present: Regular Rate and Rhythm, Normal S1, S2. No: Murmurs Abdomen: Present: Normal Bowel Sounds. No: Tenderness, Distention, Peritoneal Signs Upper Extremity: Present: Normal Inspection, NORMAL PULSES Lower Extremity: Present: Normal Inspection. No: Edema Neurological: Present: GCS=15, CN II-XII Intact, Speech Normal Skin: Present: Warm, Dry, Normal Color. No: Rashes Psychiatric: Present: Alert, Normal Concentration Medical Decision Making ED Course and Treatment: Although patient denied previous evaluation for chest pain, this is the patient' s 4th visit to the ED this month for chest pain and was admitted to the hospital for chest pain this month. Progress Notes: EKG: Ordered, reviewed, and independently interpreted the EKG. Rate : 71 BPM Rhythm : NSR Interpretation : Normal axis, normal intervals, no acute ischemia Comparison : No previous EKG for comparison. CXR- nad HEART score low risk Pt has f/u scheduled on saturday w his pcp. - Lab Interpretations Lab Results: 06/29/16 21:50 06/29/16 21:50 Lab Results 06/29/16 21:50: WBC 8.0, RBC 4.64, Hgb 13.7 L, Hct 40.5 L, MCV 87.3, MCH 29.5, MCHC 33.8, RDW 13.8, Plt Count 298, MPV 10.2, Gran % 50.2, Lymph % (Auto) 39.3 H , [place] % (Auto) 8.1 H, Eos % (Auto) 2.1, Baso % (Auto) 0.3, Gran # 4.00, Lymph # 3.1, Atlantic # 0.7 H, Eos # 0.2, Baso # 0.02, Sodium 138, Potassium 3.8, Chloride 103, Carbon Dioxide 26, Anion Gap 13, BUN 20, Creatinine 0.8, Est GFR ( Amer) > 60, Est GFR (Non-Af Amer) > 60, Random Glucose 103, Calcium 9.1 , Total Bilirubin 0.5, AST 24, ALT 34, Alkaline Phosphatase 62, Troponin I < 0.01, Total Protein 7.2, Albumin 3.8, Globulin 3.4, Albumin/Globulin Ratio 1.1 - RAD Interpretation Radiology Orders: 06/29/16 21:27 CHEST PORTABLE [RAD] Stat - EKG Interpretation Interpreted by ED Physician: Yes Type: 12 lead EKG - Medication Orders Current Medication Orders: Discontinued Medications Ketorolac Tromethamine (Toradol) 10 mg IVP STAT STA Stop: 06/29/16 21:28 Last Admin: 06/29/16 21:59 Dose: 10 MG IVP Administration Document 06/29/16 21:59 ASHLEY (Rec: 06/29/16 21:[address] [facility] [id number]) Charges for Administration # of IVP Administrations 1 - Scribe Statement The provider has reviewed the documentation as recorded by the Jesus Dennis Provider Scribe Attestation: All medical record entries made by the Scribe were at my direction and personally dictated by me. I have reviewed the chart and agree that the record accurately reflects my personal performance of the history, physical exam, medical decision making, and the department course for this patient. I have also personally directed, reviewed, and agree with the discharge instructions and disposition. Disposition/Present on Arrival - Present on Arrival Any Indicators Present on Arrival: No History of DVT/PE: No History of Uncontrolled Diabetes: No Urinary Catheter: No History Surgical Site Infection Following: None - Disposition Have Diagnosis and Disposition been Completed?: Yes Diagnosis: Chest pain Disposition: HOME/ ROUTINE Disposition Time: 22:32 Condition: STABLE Discharge Instructions (ExitCare): Chest Pain (ED) Additional Instructions: Please follow up with your doctor on Saturday. Return to the ER for any worsening symptoms or for any other concerns. Prescriptions: Naproxen [Naprosyn] 500 mg PO Q12H PRN #10 tablet PRN Reason: Pain, Moderate (4-7) Referrals: Richard Welsh JD, MD [Family Provider] - Follow up with primary
[2016-06-29 21:34] VITALS: RESP 16
[2016-06-29 21:55] LABS: ADD MANUAL DIFF? NO
[2016-06-29 21:58] LABS: BASO # 0.02 K/mm3 (0.0-2.0); BASO % 0.3 % (0.0-3.0); EOS # 0.2 (0.0-0.7); EOS % 2.1 % (1.5-5.0); GRAN % 50.2 % (50.0-68.0); HEMATOCRIT 40.5 % (42.0-52.0); LYMPH # 3.1 (1.2-3.4); LYMPH % 39.3 % (22.0-35.0); MEAN CELL VOLUME 87.3 fL (80.0-105.0); MEAN CORPUSCULAR HEMOGLOBIN 29.5 pg (25.0-35.0); MEAN CORPUSCULAR HGB CONC 33.8 g/dl (31.0-37.0); MEAN PLATELET VOLUME 10.2 fl (7.0-11.0); MONO # 0.7 (0.1-0.6); MONO % 8.1 % (1.0-6.0); PLATELET COUNT 298 10^3/uL (120.0-450.0); RED CELL DISTRIBUTION WIDTH 13.8 % (11.5-14.5)
[2016-06-29 22:00] VITALS: O2SAT 95
[2016-06-29 22:13] LABS: ALB/GLOB RATIO 1.1 (1.1-1.8); ALKALINE PHOSPHATASE 62 U/L (38-133); ALT/SGPT 34 U/L (7-56); AST/SGOT 24 U/L (15-59); BILIRUBIN,TOTAL 0.5 mg/dL (0.2-1.3); BLOOD UREA NITROGEN 20 mg/dL (7-21); CALCIUM 9.1 mg/dL (8.4-10.5); CARBON DIOXIDE 26 mmol/L (21-33); CHLORIDE 103 mmol/L (98-107); GFR AFRICAN-AMERICAN > 60; GLUCOSE,RANDOM 103 mg/dL (70-110); POTASSIUM 3.8 mmol/L (3.6-5.0); SODIUM 138 mmol/L (132-148); TOTAL PROTEIN 7.2 g/dL (5.8-8.3)
[2016-06-29 22:24] LABS: TROPONIN I < 0.01 ng/mL
[2016-06-29 22:47] VITALS: BP 122/73; TEMP 98.1
[2016-06-29 22:54] VITALS: PULSE 62
--- NOTE | 2016-06-30 10:02 | RAD ---
HISTORY: cp COMPARISON: Comparison chest 06/24/2016 FINDINGS: LUNGS: No active pulmonary disease. PLEURA: No significant pleural effusion identified, no pneumothorax apparent. CARDIOVASCULAR: Normal. OSSEOUS STRUCTURES: No significant abnormalities. VISUALIZED UPPER ABDOMEN: Normal. OTHER FINDINGS: None. IMPRESSION: No active disease.
--- NOTE | 2016-06-30 11:34 | CARD ---
APPROVED REPORT EKG Measurement Heart [id number] <Conclusion> Normal sinus rhythm
== END 2016-06-29 22:54 | disposition home or self-care (01) ==
LOC: ED 21:16
DX: R07.9 Chest pain, unspecified (principal)
CPT/HCPCS: 71010; 80053; 84484; 85025; 93005; 96374; 99283; J1885

== ENCOUNTER 2016-10-12 13:46 | Emergency (ER) | payer OTHER ==
[2016-10-12 13:52] VITALS: BMI 30.5
[2016-10-12 13:55] VITALS: BP 133/89; PULSE 86; RESP 18; TEMP 98.1; O2SAT 96
--- NOTE | 2016-10-12 14:55 | ED PDOC ---
Arrival/HPI - General Chief Complaint: Pain, Chronic Time Seen by Provider: 10/12/16 14:18 Historian: Patient - History of Present Illness Narrative History of Present Illness (Text): The pt is a 51yo male, presents to the Emergency department for evaluation of chronic joint pain. Pt states he recently ran out of his medications and was referred by his PCP Dr. Richard Welsh to a pain management doctor. Pt states he has been unable to make a follow up appointment with pain management. He denies any changes in the character of his pain and denies any acute chest pain , shortness of breath. Pt offers no additional medical complaints. States he has had pain in his joints including hips, shoulders, back and neck intermittently for several years. Denies weakness. Denies difficulty ambulating. Denies chest pain or sob with exertion. Denies fever. Denies swelling. States that he has not had prescription of his medication for several months. Denies depression or suicidal ideation. States that he received his last prescription from his PMD DR. Jamie Welsh, who he states he saw and was referred to pain management who he hasn't been able to see yet. Denies any recent injury. Time/Duration: > month Symptom Course: Unchanged Past Medical History - Provider Review Nursing Documentation Reviewed: Yes - Past History Past History: No Previous - Infectious Disease Hx of Infectious Diseases: None - Tetanus Immunization Tetanus Immunization: Unknown - Past Medical History Past Medical History: Non-Contributing - Cardiac Hx Cardiac Disorders: No Hx Hypertension: No - Pulmonary Hx Respiratory Disorders: No Hx Tuberculosis: No - Neurological Hx Neurological Disorder: No Hx Seizures: No - HEENT Hx HEENT Disorder: No - Renal Hx Renal Disorder: No - Endocrine/Metabolic Hx Endocrine Disorders: No - Hematological/Oncological Hx Blood Disorders: No Hx Cancer: No - Integumentary Hx Dermatological Disorder: No - Musculoskeletal/Rheumatological Hx Arthritis: Yes (multiple back surgeries) - Gastrointestinal Hx Gastrointestinal Disorders: No - Genitourinary/Gynecological Hx Genitourinary Disorders: No Hx Sexually Transmitted Diseases: No - Psychiatric Hx Anxiety: Yes Hx Depression: Yes Hx Substance Use: Yes (cannabis) - Past Surgical History Past Surgical History: Non-Contributing - Surgical History Other/Comment: L4 L5 herniated disk /r ankle/r knee x2/l knee x2/r shoulder/ fossa l-3,l-4,l-5 - Anesthesia Hx Anesthesia: Yes Hx Anesthesia Reactions: No Hx Malignant Hyperthermia: No - Suicidal Assessment Feels Threatened In Home Enviroment: No Family/Social History - Physician Review Nursing Documentation Reviewed: Yes Family/Social History: Unknown Family HX Smoking Status: Heavy Smoker > 10 Cigarettes Daily Hx Alcohol Use: Yes (as per patient he stopped drinking) Hx Substance Use: Yes (cannabis) Substance used: pcp last wk Hx Substance Use Treatment: No Allergies/Home Meds Allergies/Adverse Reactions: Allergies No Known Allergies Allergy (Verified 06/29/16 21:21) Home Medications: Home Meds Medication Instructions Recorded Confirmed Alprazolam [Xanax] 0.5 mg PO DAILY 10/25/15 10/12/16 oxyCODONE [oxyCODONE Immediate 30 mg PO 5XD 10/25/15 10/12/16 Release Tab] Morphine [Morphine Sulfate] 15 mg PO TID 05/10/16 10/12/16 Review of Systems - Review of Systems Constitutional: absent: Fatigue, Fevers Eyes: absent: Vision Changes ENT: absent: Hearing Changes, Sore Throat Respiratory: absent: SOB, Cough, Sputum, Wheezing Cardiovascular: absent: Chest Pain, Calf Pain, JOHNSON Gastrointestinal: absent: Abdominal Pain, Nausea, Vomiting Genitourinary Male: absent: Frequency Musculoskeletal: Arthralgias, Back Pain, Neck Pain, Other (chronic joint and body aches). absent: Joint Swelling Skin: absent: Rash, Pruritis Neurological: absent: Headache, Dizziness, Focal Weakness Endocrine: absent: Polydipsia Hemo/Lymphatic: absent: Easy Bleeding Psychiatric: absent: Depression, Suicidal Ideation Physical Exam - Physical Exam Narrative Physical Exam (Text): Head: Atraumatic. Normocephalic. Eyes: PERRL. EOMI. Conjunctivae are not pale. ENT: Mucous membranes are moist and intact. Oropharynx is clear and symmetric. Neck: Supple. Full ROM. No JVD. No lymphadenopathy. Mild paraspinal pain. No midline pain or deformity. Cardiovascular: Regular rate. Regular rhythm. Pulmonary/Chest: No evidence of respiratory distress. Abdominal: Soft and non-distended. There is no tenderness. No rebound, guarding, or rigidity. Back: No CVA tenderness. Paraspinal tenderness. NO midline deformity. Extremities: No edema or erythema. No cyanosis. No clubbing. Expresses pain in hips and right upper extremity with range of motion. No calf tenderness. No neurovascular deficits noted. Slight click with ROM of right shoulder, no clavicular pain, no edema or warmth to joints. Skin: Skin is warm and dry. No petechiae. No purpura. Neurological: Alert, awake, and oriented. Normal speech. Steady gait. Motor and sensory exam intact. No meningeal signs. Psychiatric: Good eye contact. Normal interaction, affect, and behavior. Pleasant. No suicidal or homicidal ideation. Vital Signs Temp Pulse Resp BP Pulse Ox 10/12/16 13:54 98.1 F 86 18 133/89 96 Medical Decision Making ED Course and Treatment: Differential Diagnosis included but are not limited to: Chronic pain Plan: -- Toradol 60mg IM -- Ultram 50 mg PO -- Pt to be given pain management follow-up information for further care. -- Reassess and disposition Prior Visits: Notes and results from previous visits were reviewed. Progress Notes: Patient on evaluation states he has run out of his pain medication and is awaiting appointment with his pain management doctor. He states he typically receives prescription from his PMD, but was recently incarcerated and was not able to follow-up with him in typical fashion. On current exam he is pleasant, nontoxic appearing, with no history of recent trauma aside from reported injury several years ago which exacerbated his pain. I did review his recently prescribed medication and reviewed risks and side effects of medications. No erythema or edema noted in joints. He DENIES CHEST PAIN OR SHORTNESS OF BREATH. Patient ordered toradol in ED with improvement of symptoms, he will be discharged with instructions to follow-up with Dr. Jamie Welsh as well as pain management, critical access hospital service number provided as well as treatment options reviewed. No tremulousness or tachycardia noted. Patient comfortable on discharge. Risks/side effects of prescribed medication reviewed with patient. - Medication Orders Current Medication Orders: Discontinued Medications Ketorolac Tromethamine (Toradol) 60 mg IM STAT STA Stop: 10/12/16 14:47 Last Admin: 10/12/16 15:06 Dose: 60 mg Tramadol HCl (Ultram) 50 mg PO STAT STA Stop: 10/12/16 14:47 Last Admin: 10/12/16 15:08 Dose: 50 mg - Scribe Statement The provider has reviewed the documentation as recorded by the Jesus Connors Provider Scribe Attestation: All medical record entries made by the Lucianaibe were at my direction and personally dictated by me. I have reviewed the chart and agree that the record accurately reflects my personal performance of the history, physical exam, medical decision making, and the department course for this patient. I have also personally directed, reviewed, and agree with the discharge instructions and disposition. Disposition/Present on Arrival - Present on Arrival Any Indicators Present on Arrival: No History of DVT/PE: No History of Uncontrolled Diabetes: No Urinary Catheter: No History of Decub. Ulcer: No History Surgical Site Infection Following: None - Disposition Have Diagnosis and Disposition been Completed?: Yes Diagnosis: Chronic pain Disposition: HOME/ ROUTINE Disposition Time: 15:00 Patient Plan: Discharge Condition: GOOD Discharge Instructions (ExitCare): Chronic Pain (ED) Additional Instructions: Follow-up with Dr. Richard Welsh as directed. Follow-up with pain management as directed. For any NEW or change in character of pain, get rechecked immediately. Risks and side effects of medication prescribed have been reviewed, including risk of sedation, risk of addiction. Do not mix prescribed medication with narcotics or alcohol. You must get re-evaluated with your physician in 1-2 days. Prescriptions: traMADol [Ultram] 50 mg PO BID #8 tab Referrals: [facility] [employer] [Outside] - Follow up with primary Loyd Johnson MD [Staff Provider] - Follow up with primary Forms: [employer] (Serbian)
== END 2016-10-12 15:22 | disposition home or self-care (01) ==
LOC: ED 13:46
DX: G89.29 Other chronic pain (principal)
CPT/HCPCS: 96372; 99283; J1885

== ENCOUNTER 2016-10-15 14:45 | Emergency (ER) | payer OTHER ==
[2016-10-15 14:45] VITALS: BMI 30.5
[2016-10-15] MEDS ORDERED: oxyCODONE 30 mg Immediate Release Tab PO STA (15:08)
--- NOTE | 2016-10-15 15:08 | ED PDOC ---
Arrival/HPI - General Chief Complaint: Pain, Chronic Time Seen by Provider: 10/15/16 14:57 Historian: Patient - History of Present Illness Narrative History of Present Illness (Text): 10/15/16 14:59 51 y/o male, chronically on the pain med for chronic back pain on the back/knee/ shoulder pain, nkda, chronically on the oxycodone 30mg and morphine, stated that he has been out of the oxycodone and morphine for weeks, no new injury or fall. Pt. stated that he has no chest pain or shortness of breath, no palpitation, no night sweat, no dizziness, no tremors or tongue fasciculation, no numbness or tingling, no nausea or vomiting, no other medical or psychological complaints. Past Medical History - Provider Review Nursing Documentation Reviewed: Yes - Past History Past History: No Previous - Infectious Disease Hx of Infectious Diseases: None - Tetanus Immunization Tetanus Immunization: Unknown - Past Medical History Past Medical History: Non-Contributing - Cardiac Hx Cardiac Disorders: No Hx Hypertension: No - Pulmonary Hx Respiratory Disorders: No Hx Tuberculosis: No - Neurological Hx Neurological Disorder: No Hx Seizures: No - HEENT Hx HEENT Disorder: No - Renal Hx Renal Disorder: No - Endocrine/Metabolic Hx Endocrine Disorders: No - Hematological/Oncological Hx Blood Disorders: No Hx Cancer: No - Integumentary Hx Dermatological Disorder: No - Musculoskeletal/Rheumatological Hx Arthritis: Yes (multiple back surgeries) - Gastrointestinal Hx Gastrointestinal Disorders: No - Genitourinary/Gynecological Hx Genitourinary Disorders: No Hx Sexually Transmitted Diseases: No - Psychiatric Hx Anxiety: Yes Hx Depression: Yes Hx Substance Use: Yes (cannabis) - Past Surgical History Past Surgical History: Non-Contributing - Surgical History Other/Comment: L4 L5 herniated disk /r ankle/r knee x2/l knee x2/r shoulder/ fossa l-3,l-4,l-5 - Anesthesia Hx Anesthesia: Yes Hx Anesthesia Reactions: No Hx Malignant Hyperthermia: No - Suicidal Assessment Feels Threatened In Home Enviroment: No Family/Social History - Physician Review Nursing Documentation Reviewed: Yes Family/Social History: Unknown Family HX Smoking Status: Heavy Smoker > 10 Cigarettes Daily Hx Alcohol Use: Yes (as per patient he stopped drinking) Hx Substance Use: Yes (cannabis) Substance used: pcp last wk Hx Substance Use Treatment: No Allergies/Home Meds Allergies/Adverse Reactions: Allergies No Known Allergies Allergy (Verified 06/29/16 21:21) Home Medications: Home Meds Medication Instructions Recorded Confirmed Alprazolam [Xanax] 0.5 mg PO DAILY 10/25/15 10/15/16 oxyCODONE [oxyCODONE Immediate 30 mg PO 5XD 10/25/15 10/15/16 Release Tab] Morphine [Morphine Sulfate] 15 mg PO TID 05/10/16 10/15/16 Review of Systems - Review of Systems Constitutional: absent: Fatigue, Fevers Eyes: absent: Vision Changes ENT: absent: Hearing Changes Respiratory: absent: SOB, Cough Cardiovascular: absent: Chest Pain Gastrointestinal: absent: Abdominal Pain, Nausea, Vomiting Musculoskeletal: Arthralgias. absent: Back Pain, Neck Pain, Joint Swelling, Myalgias Skin: absent: Rash, Pruritis, Skin Lesions Psychiatric: absent: Anxiety, Depression, Suicidal Ideation Physical Exam Vital Signs Reviewed: Yes Vital Signs Temp Pulse Resp BP Pulse Ox 10/15/16 14:53 98.6 F 83 18 144/92 H 94 L Temperature: Afebrile Blood Pressure: Hypertensive Pulse: Regular Respiratory Rate: Normal Appearance: Positive for: Well-Appearing, Non-Toxic Pain Distress: Moderate Mental Status: Positive for: Alert and Oriented X 3 - Systems Exam Head: Present: Atraumatic, Normocephalic Pupils: Present: PERRL Extroacular Muscles: Present: EOMI Conjunctiva: Present: Normal Mouth: Present: Moist Mucous Membranes Neck: Present: Normal Range of Motion, Trachea Midline. No: Meningeal Signs, MIDLINE TENDERNESS, Paraspinal Tenderness, Lymphadenopathy Respiratory/Chest: Present: Clear to Auscultation, Good Air Exchange. No: Respiratory Distress, Accessory Muscle Use Cardiovascular: Present: Regular Rate and Rhythm, Normal S1, S2. No: Murmurs Abdomen: Present: Normal Bowel Sounds. No: Tenderness, Distention, Peritoneal Signs Back: Present: Normal Inspection. No: CVA Tenderness, Midline Tenderness, Paraspinal Tenderness Upper Extremity: Present: Normal Inspection, Normal ROM, Neurovascularly Intact. No: Cyanosis, Edema, Tenderness, Swelling, Deformity Lower Extremity: Present: Normal Inspection, Normal ROM, Capillary Refill < 2 s. No: Edema, Tenderness, Swelling, Deformity Neurological: Present: GCS=15, CN II-XII Intact, Speech Normal, Motor Func Grossly Intact, Gait Normal, Memory Normal Skin: Present: Warm, Dry, Normal Color. No: Rashes Psychiatric: Present: Alert, Oriented x 3, Normal Insight, Normal Concentration Medical Decision Making ED Course and Treatment: 10/15/16 15:12 -Pt. has been on the oxycodone 30mg po for months, no signs of withdrawal, complaining about the chronic pain and request oxycodone for pain, will give him a dose here. I explained to the patient that he will need to follow up with his own pmd and pain management doctor. Pt. is not driving home. -Discharge home with education on take tylenol or motrin at home for pain, take your remaining tramadol as needed, follow up with your own pmd and pain management within 2 days, return to the ER for any new or worsening signs or symptoms. - PA / MEDICAL TECHNOLOGIST CHEMISTRY / Resident Statement / has reviewed & agrees with the documentation as recorded. Disposition/Present on Arrival - Present on Arrival Any Indicators Present on Arrival: No History of DVT/PE: No History of Uncontrolled Diabetes: No Urinary Catheter: No History of Decub. Ulcer: No History Surgical Site Infection Following: None - Disposition Have Diagnosis and Disposition been Completed?: Yes Diagnosis: Chronic pain Disposition: HOME/ ROUTINE Disposition Time: 15:14 Patient Plan: Discharge Condition: GOOD Additional Instructions: Discharge home with education on take tylenol or motrin at home for pain, take your remaining tramadol as needed, follow up with your own pmd and pain management within 2 days, return to the ER for any new or worsening signs or symptoms. Referrals: Richard Welsh JD, MD [Staff Provider] - Follow up with primary Forms: [employer] ([place]atian)
[2016-10-15 15:11] VITALS: TEMP 97.5
[2016-10-15 15:20] VITALS: BP 142/90; O2SAT 98
[2016-10-15 17:24] VITALS: PULSE 86; RESP 17
== END 2016-10-15 15:25 | disposition home or self-care (01) ==
LOC: ED 14:45
DX: G89.29 Other chronic pain (principal)

== ENCOUNTER 2016-11-01 07:03 | Day surgery (SDC) | payer OTHER ==
--- NOTE | 2016-11-01 02:22 | HP ---
REASON FOR ADMISSION: Abnormal stress test for cardiac catheterization. BRIEF HISTORY: This is a 51-year-old male with past medical history significant for back pain, on multiple pain medications; oxycodone, morphine, Xanax, who underwent risk stratification stress test because the patient was using a lot of analgesics and multiple risk factors for coronary artery disease. Stress test is abnormal. This patient is scheduled for elective cardiac catheterization, possible angioplasty. Past history is significant for back pain, and he is taking multiple pain medications, narcotics, analgesics. Cardiac workup as follows; the patient had a stress test dated 07/11/2016 that shows abnormal cardiac perfusion study. Ejection fraction of 51%. The patient was seen by Dr. Arguello most recently on 10/17/2016 complaining of tightness in chest, burning pain in the chest, radiating to the left arm, so cardiac catheterization is suggested by Dr. Arguello and the patient is scheduled for elective cardiac cath and possible angioplasty. CURRENT MEDICATIONS: Tramadol 50 mg daily, oxycodone 30 mg daily, morphine 30 mg daily, Xanax 0.5 mg daily. REVIEW OF SYSTEMS: As per HPI. PHYSICAL EXAMINATION: VITAL SIGNS: Height of the patient is 5 feet 7 inches, weight of the patient is 195 pounds, body mass index is 30 kg/m2. Rest of the examination as follows; heart rate 60, blood pressure 118/86. HEENT: PERRLA. Extraocular muscles intact. NECK: Supple. No carotid bruit or thyromegaly. CHEST: Clear to auscultation. HEART: S1 and S2 regular. ABDOMEN: Soft. EXTREMITIES: Clubbing and cyanosis negative. LABORATORY DATA: Blood workup pending. IMPRESSION: Fixed defect on stress test, but the patient seen by Dr. Arguello on 10/17/2016 complaining of chest pain radiating to left arm, tightness in the chest and burning sensation thought to be unstable angina. The patient is scheduled for elective cardiac catheterization and possible angioplasty. We will follow the blood work. Load with aspirin and Plavix. Further recommendation after the cardiac catheterization. Risks, benefits, and alternatives were discussed with the patient. The patient agrees. We will proceed with cardiac catheterization. Thank you Dr. Arguello/Dr. Welsh for the opportunity in taking care of the patient, David Wong. Kade Charles MD
[2016-11-01 08:22] VITALS: O2SAT 98
[2016-11-01 08:31] LABS: BASO # 0.01 K/mm3 (0.0-2.0); BASO % 0.2 % (0.0-3.0); EOS # 0.1 (0.0-0.7); EOS % 2.1 % (1.5-5.0); GRAN # 3.21 (1.4-6.5); GRAN % 51.9 % (50.0-68.0); HEMOGLOBIN 15.4 g/dL (14.0-18.0); LYMPH # 1.9 (1.2-3.4); LYMPH % 30.5 % (22.0-35.0); MEAN CORPUSCULAR HEMOGLOBIN 30.3 pg (25.0-35.0); MEAN CORPUSCULAR HGB CONC 34.4 g/dl (31.0-37.0); MEAN PLATELET VOLUME 10.4 fl (7.0-11.0); MONO % 15.3 % (1.0-6.0); PLATELET COUNT 377 10^3/uL (120.0-450.0); RBC 5.09 10^6/uL (3.5-6.1); RED CELL DISTRIBUTION WIDTH 13.4 % (11.5-14.5); WHITE BLOOD COUNT 6.2 10^3/ul (4.5-11.0)
[2016-11-01 08:38] LABS: PARTIAL THROMBOPLASTIN TIME 33.1 Seconds (23.7-30.8)
[2016-11-01 08:46] LABS: INR 0.99 (0.93-1.08); PROTHROMBIN TIME 10.7 Seconds (9.9-11.8)
[2016-11-01 08:48] LABS: BLOOD UREA NITROGEN 18 mg/dL (7-21); CALCIUM 9.4 mg/dL (8.4-10.5); GFR AFRICAN-AMERICAN > 60; GFR NON-AFRICAN AMERICAN > 60; HDL CHOLESTEROL 27 mg/dL (29-60); LDL CHOLESTEROL 156 mg/dL (0-129)
[2016-11-01] MEDS ORDERED: Morphine 2 mg/ml ISec ONE (10:08)
[2016-11-01] MEDS ORDERED: Lidocaine 2% Inj (20ml) ONE (10:47)
[2016-11-01] MEDS ORDERED: Nitroglycerin 50mg in D5W 50 MG/250 ML BOTTLE IV ONE (10:48)
[2016-11-01] MEDS ORDERED: Midazolam 2 MG/2 ML VIAL ONE (11:18)
[2016-11-01] MEDS ORDERED: Iohexol 350 MG/100 ML VIAL ONE ×2 (11:33→12:12)
[2016-11-01] MEDS ORDERED: Iohexol 350mgl/ml 50 ML ONE (11:33)
[2016-11-01] MEDS ORDERED: Eptifibatide 20 mg/10mL Inj IVP ONE (11:33)
--- NOTE | 2016-11-01 11:44 | CARD ---
APPROVED REPORT EKG Measurement Heart [id number] <Conclusion> Normal sinus rhythm. Small Q 2,3,AVF Possible [place]?
[2016-11-01] MEDS ORDERED: Phenylephrine 10 mg/ml Inj ONE (11:48)
[2016-11-01] MEDS ORDERED: Sodium Chloride 0.9% 1,000 ML IV SCH (13:00)
[2016-11-01] MEDS: oxyCODONE 30 mg Immediate Release Tab PO SCH ×2 (13:26→14:37)
--- NOTE | 2016-11-01 13:28 | CP.PCM.CON ---
History of Present Illness - History of Present Illness History of Present Illness: 51 yo male presents for elective cardiac cath s/p abn stress test, had stent placement uncomplicated, denies cp, no SOB Past Patient History - Infectious Disease Hx of Infectious Diseases: None - Tetanus Immunizations Tetanus Immunization: Unknown - Past Medical History & Family History Past Medical History?: Yes - Past Social History Smoking Status: Heavy Smoker > 10 Cigarettes Daily - CARDIAC Hx Pacemaker: No - PULMONARY Hx Respiratory Disorders: No Hx Tuberculosis: No - NEUROLOGICAL Hx Paralysis: No - HEENT Hx HEENT Problems: No - RENAL Hx Chronic Kidney Disease: No - ENDOCRINE/METABOLIC Hx Endocrine Disorders: No - HEMATOLOGICAL/ONCOLOGICAL Hx Blood Transfusions: No Hx Blood Transfusion Reaction: No - INTEGUMENTARY Hx Dermatological Problems: No - MUSCULOSKELETAL/RHEUMATOLOGICAL Hx Musculoskeletal Disorders: Yes - GASTROINTESTINAL Hx Gastrointestinal Disorders: No - GENITOURINARY/GYNECOLOGICAL Hx Genitourinary Disorders: No Hx Sexually Transmitted Disorders: No - PSYCHIATRIC Hx Emotional Abuse: No Hx Physical Abuse: No Hx Substance Use: Yes (cannabis) - SURGICAL HISTORY Hx Surgeries: Yes - ANESTHESIA Hx Anesthesia Reactions: No Hx Malignant Hyperthermia: No Meds Allergies/Adverse Reactions: Allergies Allergy/AdvReac Type Severity Reaction Status Date / Time No Known Allergies Allergy Verified 06/29/16 21:21 - Medications Medications: Current Medications Aspirin (Ecotrin) 81 mg PO DAILY [facility] Atorvastatin Calcium (Lipitor) 20 mg PO DIN [facility] Clopidogrel Bisulfate (Plavix) 75 mg PO DAILY [facility] Sodium Chloride (Sodium Chloride 0.9%) 1,000 mls @ 100 mls/hr IV .Q10H [facility] Stop: 11/01/16 18:00 Oxycodone HCl (Oxycodone Immediate Release Tab) 30 mg PO 5XD [facility] Physical Exam - Constitutional Appears: No Acute Distress - Head Exam Head Exam: ATRAUMATIC, NORMOCEPHALIC - Eye Exam Eye Exam: EOMI, PERRL - Neck Exam Neck exam: Positive for: Normal Inspection - Respiratory Exam Respiratory Exam: Clear to Auscultation Bilateral - Cardiovascular Exam Cardiovascular Exam: REGULAR RHYTHM - GI/Abdominal Exam GI & Abdominal Exam: Normal Bowel Sounds, Soft - Extremities Exam Extremities exam: Positive for: normal inspection - Neurological Exam Neurological exam: Alert, Oriented x3 - Skin Skin Exam: Dry, Warm Results - Vital Signs Recent Vital Signs: Last Vital Signs Temp 97.5 F L 11/01/16 07:50 Pulse 68 08/17/17 07:50 Resp 20 11/01/16 07:50 BP 116/81 11/01/16 07:50 Pulse Ox 98 11/01/16 07:50 - Labs Result Diagrams: 11/01/16 08:20 11/01/16 08:20 Labs: Laboratory Results - last 24 hr 11/01/16 11/01/16 11/01/16 07:50 08:20 08:20 WBC 6.2 D RBC 5.09 Hgb 15.4 Hct 44.8 MCV 88.0 MCH 30.3 MCHC 34.4 RDW 13.4 Plt Count 377 MPV 10.4 Gran % 51.9 Lymph % (Auto) 30.5 [place] % (Auto) 15.3 H Eos % (Auto) 2.1 Baso % (Auto) 0.2 Gran # 3.21 Lymph # 1.9 [place] # 1.0 H Eos # 0.1 Baso # 0.01 PT 10.7 INR 0.99 APTT 33.1 H Sodium Potassium Chloride Carbon Dioxide Anion Gap BUN Creatinine Est GFR ( Amer) Est GFR (Non-Af Amer) Random Glucose Calcium Triglycerides Cholesterol LDL Cholesterol Direct HDL Cholesterol Blood Type Blood Type Confirm A POSITIVE Antibody Screen BBK History Checked 11/01/16 11/01/16 08:20 08:20 WBC RBC Hgb Hct MCV MCH MCHC RDW Plt Count MPV Gran % Lymph % (Auto) [place] % (Auto) Eos % (Auto) Baso % (Auto) Gran # Lymph # [place] # Eos # Baso # PT INR APTT Sodium 141 Potassium 4.0 Chloride 103 Carbon Dioxide 27 Anion Gap 15 BUN 18 Creatinine 0.9 Est GFR ( Amer) > 60 Est GFR (Non-Af Amer) > 60 Random Glucose 95 Calcium 9.4 Triglycerides 84 Cholesterol 187 LDL Cholesterol Direct 156 H HDL Cholesterol 27 L Blood Type A POSITIVE Blood Type Confirm Antibody Screen Negative BBK History Checked No verified bt Assessment & Plan (1) Coronary arteriosclerosis Status: Acute - Assessment and Plan (Free Text) Plan: for dc to home today, f/u as outpt 1 week - Date & Time Date: 11/01/16 Time: 13:00
--- NOTE | 2016-11-01 16:26 | CARD ---
APPROVED REPORT Procedure(s) performed: Left Heart Catheterization PTCA with Stenting of Mid LAD with KYLEE PTCA with Balloon Angioplasty of D1 ostial PTCA with Stenting of proximal to Mid RCA HISTORY The patient is a 51 year-old male with a history of : most recent EF: 51%. (EF Method: RADIONUCLIDE), tobacco history() : The patient is a current smoker . INDICATION The indication(s) include : chest pain, dyspnea. CASE TECHNIQUE The patient was brought electively to the Cardiac Catheterization Laboratory in a fasting state and was prepped and draped in a sterile manner. The left wrist was infiltrated with 2% Lidocaine subcutaneous anesthesia. A 6 Fr Glidesheath (Radial) sheath was inserted into the left radial artery without difficulty. Coronary angiography was performed using coronary diagnostic catheters. The left coronary system was accessed and visualized with a Diagnostic ,5 Fr JL 4 catheter. The right coronary system was accessed and visualized with a Diagnostic ,5 Fr JR 4 catheter. The left ventricle was accessed and visualized with a 5 Fr Pigtail 145 (Angled) catheter. Left ventricular/Aortic Valve gradient assessed on pullback. Left ventriculogram was performed in MEEKS projection. Closure device was deployed with a Fr TR Band (Large) without any complications. The patient tolerated the procedure well and there were no complications associated with the procedure. Vessel Analysis The patient's coronary anatomy is right dominant. The left main coronary artery is a large size vessel without significant stenosis. The left main bifurcates to the left anterior descending and circumflex. The left anterior descending artery is a medium size vessel with diffuse calcification noted throughout this vessel and with significant stenosis. There is a 80% stenosis in the mid segment. The first diagonal branch is a medium size vessel with diffuse calcification noted throughout this vessel and with significant stenosis. There is a 80% stenosis in the ostial segment. The circumflex artery is a medium size vessel with diffuse calcification noted throughout this vessel and without significant stenosis. There is a 30-40% stenosis in the mid segment. The first obtuse marginal branch is a medium size vessel with diffuse calcification noted throughout this vessel and without significant stenosis. The second obtuse marginal branch is a medium size vessel with diffuse calcification noted throughout this vessel and without significant stenosis. The right coronary artery is a large size vessel with diffuse calcification noted throughout this vessel and with significant stenosis. There is a 90% stenosis in the proximal segment. Multiple stenoses in proximal to Mid RCA The right posterior descending artery is a medium size vessel with diffuse calcification noted throughout this vessel and without significant stenosis. Left Ventricle The left ventricle is normal in size with normal contractility. Non-Ischemic cardiomyopathy. The left ventricular ejection fraction is estimated to be 55%. The left ventricular end diastolic pressure is 16 mmHg. There was no gradient across the aortic valve upon pullback. PCI Technique Lesion Anticoagulation was achieved with Heparin. Percutaneous coronary intervention was performed on the mid left anterior descending artery segment. The lesion stenosis prior to intervention was 80% with CASSIDY 2 flow. A 6 Fr XB 3.5 Guide Catheter was used to engage the ostium. BALLOON DILATION A Balloon catheter 2.0 x 10 mm Sprinter RX was inserted and inflated up to 10.00atm for 11seconds. STENT DEPLOYMENT A drug-eluting stent 2.75 x 18 mm Resolute KYLEE was inserted and inflated up to 10.00atm for 11seconds. POST STENT DEPLOYMENT BALLOON DILATION A Balloon catheter 3.5 x 8 mm Trek RX NC was inserted and inflated up to 14.00atm for 10seconds. Final angiography reveals 0 % stenosis with CASSIDY 3 flow. PCI Technique Lesion 2 Percutaneous Coronary Intervention was performed on the Ostial first diagonal branch segment. The lesion stenosis prior to intervention was 80% with CASSIDY 2 flow. A 6 Fr XB 3.5 Guide Catheter was used to engage the ostium. BALLOON DILATION A Balloon catheter 2.0 x 10 mm Sprinter RX was inserted and inflated up to 8atm for 60seconds. Final angiography reveals 30 % stenosis with CASSIDY 3 flow. PCI Technique Lesion 3 Percutaneous Coronary Intervention was performed on the mid right coronary artery. The lesion stenosis prior to intervention was 80% with CASSIDY 2 flow. A 6 Fr JR 3.5 Guide Catheter was used to engage the ostium. BALLOON DILATION A Balloon catheter 2.0 x 10 mm Sprinter RX was inserted and inflated up to 12.00atm for 16seconds. STENT DEPLOYMENT A drug-eluting stent 3.0 x 38 mm Resolute KYLEE was inserted and inflated up to 12.00atm for 16seconds. Final angiography reveals 0 % stenosis with CASSIDY 3 flow. PCI Technique Lesion 4 Percutaneous Coronary Intervention was performed on the proximal right coronary artery. The lesion stenosis prior to intervention was 90% with CASSIDY 2 flow. A 6 Fr JR 3.5 Guide Catheter was used to engage the ostium. BALLOON DILATION A Balloon catheter 2.0 x 10 mm Sprinter RX was inserted and inflated up to 10atm for 30seconds. Multiple inflatation proximal to Mid RCA STENT DEPLOYMENT A drug-eluting stent 3.0 x 15 mm Resolute KYLEE was inserted and inflated up to velvet for seconds. Final angiography reveals 0 % stenosis with CASSIDY 3 flow. Conclusion Two vessel critical Diz/ involving Proximal to Mid RCA and Mid LAD involving Ostial D1 Mild to Moderate Diz Cx. preserved Lv Fx. EF-555, EDp-16 mmof hg. successful PTCA with Kylee of LAD and RCA and POBA of D1/ Recommendations Cardiac Rehabilitation ReferralDaily ASA with Plavix for at least one year Aggressive Medical TherapyCardiac Risk Reduction Program Weight Loss Reduction Program CC; Jamie Sewell/ Saundra.
[2016-11-01 16:47] VITALS: BP 125/64
[2016-11-01] MEDS ORDERED: Bacitracin 500 Units/gm Oint Foilpak UD ONE (17:12)
[2016-11-01 17:14] LABS: BLOOD UREA NITROGEN 17 mg/dL (7-21); CALCIUM 9.1 mg/dL (8.4-10.5); GFR AFRICAN-AMERICAN > 60; GFR NON-AFRICAN AMERICAN > 60
[2016-11-01 17:31] VITALS: PULSE 61; RESP 20; TEMP 97.9
[2016-11-01 17:51] LABS: BASO # 0.01 K/mm3 (0.0-2.0); BASO % 0.1 % (0.0-3.0); EOS # 0.1 (0.0-0.7); EOS % 1.6 % (1.5-5.0); GRAN # 3.57 (1.4-6.5); GRAN % 48.2 % (50.0-68.0); HEMOGLOBIN 14.4 g/dL (14.0-18.0); LYMPH # 2.8 (1.2-3.4); LYMPH % 38.1 % (22.0-35.0); MEAN CELL VOLUME 87.5 fl (80.0-105.0); MEAN CORPUSCULAR HEMOGLOBIN 29.6 pg (25.0-35.0); MEAN CORPUSCULAR HGB CONC 33.8 g/dl (31.0-37.0); MEAN PLATELET VOLUME 10.6 fl (7.0-11.0); MONO # 0.9 (0.1-0.6); PLATELET COUNT 369 10^3/uL (120.0-450.0); RBC 4.87 10^6/uL (3.5-6.1); RED CELL DISTRIBUTION WIDTH 13.5 % (11.5-14.5); WHITE BLOOD COUNT 7.4 10^3/ul (4.5-11.0)
--- NOTE | 2016-11-02 16:28 | CARD ---
APPROVED REPORT EKG Measurement Heart [id number] <Conclusion> Normal sinus rhythm Possible Inferior infarct, age undetermined Abnormal ECG
== END 2016-11-01 19:12 | disposition home or self-care (01) ==
LOC: CATH 07:03 → 2RSO 13:05 → CATH 19:12
PROVIDERS: ATTEND Internal Medicine Cardiovascular Disease
DX: I25.110 Atherosclerotic heart disease of native coronary artery with unstable angina pectoris (principal); I42.9 Cardiomyopathy, unspecified; R94.39 Abnormal result of other cardiovascular function study; F17.210 Nicotine dependence, cigarettes, uncomplicated; Z79.82 Long term (current) use of aspirin
CPT/HCPCS: 36415; 80048; 80061; 85025; 85175; 85610; 85730; 86850; 86900; 93005; 93458; 99152; 99153; C1725 ×2; C1769 ×3; C1874 ×4; C1887 ×4; C9600; C9601; J1327; J1644 ×2; J2250; J2270; J3010; J7030; J7040; Q9967 ×3

== ENCOUNTER 2016-11-29 21:19 | Observation (INO) | payer OTHER ==
[2016-11-29 21:52] VITALS: BMI 29.0
--- NOTE | 2016-11-29 21:53 | ED PDOC ---
Arrival/HPI - General Time Seen by Provider: 11/29/16 21:51 Historian: Patient - History of Present Illness Narrative History of Present Illness (Text): 11/29/16 21:52 A 51 year old male with no significant past medical history, presents to the emergency department stating that he used PCP. He denies any complaints, suicidal/homicidal ideation. PMD: Dr. Richard Welsh Time/Duration: Prior to Arrival Symptom Onset: Sudden Symptom Course: Unchanged Activities at Onset: Rest, Light Context: Home Past Medical History - Provider Review Nursing Documentation Reviewed: Yes - Past History Past History: No Previous - Infectious Disease Hx of Infectious Diseases: None - Tetanus Immunization Tetanus Immunization: Unknown - Past Medical History Past Medical History: Non-Contributing - Cardiac Hx Pacemaker: No - Pulmonary Hx Respiratory Disorders: No Hx Tuberculosis: No - Neurological Hx Paralysis: No - HEENT Hx HEENT Disorder: No - Renal Hx Renal Disorder: No - Endocrine/Metabolic Hx Endocrine Disorders: No - Hematological/Oncological Hx Blood Transfusions: No Hx Blood Transfusion Reaction: No - Integumentary Hx Dermatological Disorder: No - Musculoskeletal/Rheumatological Hx Musculoskeletal Disorders: Yes - Gastrointestinal Hx Gastrointestinal Disorders: No - Genitourinary/Gynecological Hx Genitourinary Disorders: No Hx Sexually Transmitted Diseases: No - Psychiatric Hx Emotional Abuse: No Hx Physical Abuse: No Hx Substance Use: Yes (cannabis) - Past Surgical History Past Surgical History: Non-Contributing - Surgical History Other/Comment: L4 L5 herniated disk /r ankle/r knee x2/l knee x2/r shoulder/ fossa l-3,l-4,l-5 - Anesthesia Hx Anesthesia Reactions: No Hx Malignant Hyperthermia: No - Suicidal Assessment Feels Threatened In Home Enviroment: No Family/Social History - Physician Review Nursing Documentation Reviewed: Yes Family/Social History: No Known Family HX Smoking Status: Heavy Smoker > 10 Cigarettes Daily Hx Alcohol Use: Yes (as per patient he stopped drinking) Hx Substance Use: Yes (cannabis) Substance used: pcp last wk Hx Substance Use Treatment: No Allergies/Home Meds Allergies/Adverse Reactions: Allergies No Known Allergies Allergy (Verified 06/29/16 21:21) Review of Systems - Physician Review All systems were reviewed & negative as marked: Yes Physical Exam - Physical Exam Narrative Physical Exam (Text): - Review of Systems Constitutional: Normal. absent: Fatigue, Weight Change, Fevers Eyes: Normal ENT: denies sore throat, denies tristhmus Respiratory: Normal. absent: SOB, Cough, Sputum Cardiovascular: absent: Chest Pain, Palpitations, Syncope Gastrointestinal: Normal. absent: Abdominal Pain, Diarrhea, Nausea, Vomiting Genitourinary: Normal. absent: Dysuria, Frequency, Hematuria Musculoskeletal: Normal. absent: Arthralgias, Back Pain, Neck Pain Skin: no rashes, no erythema Neurological: absent: Focal Weakness Endocrine: Normal Hemo/Lymphatic: Normal Psychiatric: No suicidal or homicidal ideations Physical exam Patient appears age appropriate in no distress, speaking full sentences without difficulty - Systems Exam Head: Present: Atraumatic, Normocephalic Pupils: Present: PERRL Extroacular Muscles: Present: EOMI Conjunctiva: Present: Normal Mouth: Present: Moist Mucous Membranes Neck: Present: Normal Range of Motion. No: MIDLINE TENDERNESS, Paraspinal Tenderness Respiratory/Chest: Present: Clear to Auscultation, Good Air Exchange. No: Respiratory Distress, Accessory Muscle Use, Tachypneic Cardiovascular: Present: Regular Rate and Rhythm, Normal S1, S2, Peripheal Pulses Present. No: Murmurs Abdomen: Present: Normal Bowel Sounds. No: Tenderness, Distention, Peritoneal Signs, Rebound, Guarding Back: Present: Normal Inspection. No: Midline Tenderness, Paraspinal Tenderness Upper Extremity: Present: Normal Inspection. No: Cyanosis, Edema Lower Extremity: Present: Normal Inspection. No: Edema Neurological: Present: GCS=15, Speech Normal, cranial nerves II through XII fully intact with no cerebellar abnormality, neurosensory fully intact. No focal neurological deficits. Skin: Present: Warm, Dry, Normal Color. No: Rashes Lymphatic: Present: OX3, NI, NC Psychiatric: Present: Alert, Oriented x 3, Normal Insight, Normal Concentration Vital Signs Reviewed: Yes Vital Signs Temp Pulse Resp BP Pulse Ox 11/30/16 00:56 98.0 F 90 17 130/89 98 Temperature: Afebrile Blood Pressure: Normal Pulse: Regular Respiratory Rate: Normal Appearance: Positive for: Well-Appearing, Non-Toxic, Comfortable Pain Distress: None Mental Status: Positive for: Alert and Oriented X 3 Medical Decision Making ED Course and Treatment: 11/29/16 21:55 Impression: A 51 year old male states that he used PCP. On exam, no acute findings. Plan: -- ED OBS -- Reassess and disposition Progress Notes: - RAD Interpretation Radiology Orders: 11/29/16 21:53 CHEST PORTABLE [RAD] Stat ED OBSERVATION Discharge: Yes Date of observation admission: 11/29/16 Time of observation admission: 21:51 - Observation admission statement Patient is being placed in observation because:: Pending sobriety. - Goals of Observation Goals of observation are:: Pending sobriety. Will reassess and disposition. - Progress Note Progress Note: 11/30/16 01:29 pt in no distress states he wants to be discharged pt ambulating with steady gait clinically sober in no distress no signs or symptoms of drug or alcohol withdrawal Pt states he understands to return to the ER right away for new or worsening symptoms or for inability to f/u with PMD or specialist as instructed. Patient states that he fully agrees with and understands discharge instructions. States that he agrees with the plan and disposition. Verbalized and repeated discharge instructions and plan. I have given the patient opportunity to ask any additional questions. Disposition/Present on Arrival - Present on Arrival Any Indicators Present on Arrival: No History of DVT/PE: No History of Uncontrolled Diabetes: No Urinary Catheter: No History Surgical Site Infection Following: None - Disposition Have Diagnosis and Disposition been Completed?: Yes Diagnosis: Drug use Disposition: HOME/ ROUTINE Disposition Time: 21:51 Patient Plan: Discharge Condition: GOOD
[2016-11-29 23:16] LABS: BASO # 0.02 K/mm3 (0.0-2.0); BASO % 0.2 % (0.0-3.0); EOS # 0.1 (0.0-0.7); EOS % 1.4 % (1.5-5.0); GRAN # 6.01 (1.4-6.5); GRAN % 64.3 % (50.0-68.0); HEMATOCRIT 40.7 % (42.0-52.0); LYMPH # 2.5 (1.2-3.4); LYMPH % 26.7 % (22.0-35.0); MEAN CELL VOLUME 87.2 fl (80.0-105.0); MEAN CORPUSCULAR HEMOGLOBIN 29.8 pg (25.0-35.0); MEAN CORPUSCULAR HGB CONC 34.2 g/dl (31.0-37.0); MEAN PLATELET VOLUME 10.1 fl (7.0-11.0); MONO # 0.7 (0.1-0.6); MONO % 7.4 % (1.0-6.0); RED CELL DISTRIBUTION WIDTH 13.3 % (11.5-14.5); WHITE BLOOD COUNT 9.3 10^3/ul (4.5-11.0)
[2016-11-29 23:26] LABS: ALB/GLOB RATIO 1.3 (1.1-1.8); ALKALINE PHOSPHATASE 82 U/L (38-126); ALT/SGPT 40 U/L (7-56); AST/SGOT 44 U/L (17-59); BILIRUBIN,TOTAL 0.5 mg/dL (0.2-1.3); BLOOD UREA NITROGEN 19 mg/dL (7-21); CALCIUM 9.1 mg/dL (8.4-10.5); CARBON DIOXIDE 25 mmol/L (21-33); CHLORIDE 106 mmol/L (98-107); GFR AFRICAN-AMERICAN > 60; GLUCOSE,RANDOM 97 mg/dL (70-110); POTASSIUM 3.7 mmol/L (3.6-5.0); SODIUM 140 mmol/L (132-148); TOTAL PROTEIN 7.7 g/dL (5.8-8.3)
[2016-11-30 00:57] VITALS: BP 130/89; PULSE 90; TEMP 98; O2SAT 98
[2016-11-30 02:14] VITALS: RESP 18
--- NOTE | 2016-11-30 09:06 | RAD ---
HISTORY: clearence COMPARISON: Comparison is made to 06/29/2016 FINDINGS: LUNGS: No active pulmonary disease. PLEURA: No significant pleural effusion identified, no pneumothorax apparent. CARDIOVASCULAR: Normal. OSSEOUS STRUCTURES: No significant abnormalities. VISUALIZED UPPER ABDOMEN: Normal. OTHER FINDINGS: None. IMPRESSION: No significant interval change since the previous study. No evidence of acute pulmonary disease.
--- NOTE | 2016-11-30 16:51 | CARD ---
APPROVED REPORT EKG Measurement Heart [id number] <Conclusion> Normal sinus rhythm Possible Old Inferior infarct.
== END 2016-11-30 01:23 | disposition home or self-care (01) ==
LOC: ED 21:19 → EROBSV 21:54
PROVIDERS: ADMIT Emergency Medicine; ATTEND Emergency Medicine
DX: F19.90 Other psychoactive substance use, unspecified, uncomplicated (principal)
CPT/HCPCS: 71010; 80053; 80320; 80329; 85025; 93005; 99283; G0378

== ENCOUNTER 2016-12-08 09:06 | Emergency (ER) | payer OTHER ==
[2016-12-08 09:06] VITALS: BMI 29.0
[2016-12-08 09:34] VITALS: BP 121/82; PULSE 77; RESP 16; TEMP 98.4; O2SAT 94
--- NOTE | 2016-12-08 09:53 | ED PDOC ---
Arrival/HPI - General Historian: Patient - History of Present Illness Time/Duration: Other (chronic) Symptom Course: Worsening (2 weeks) Context: Home - General Chief Complaint: Back Pain Time Seen by Provider: 12/08/16 09:30 - History of Present Illness Narrative History of Present Illness (Text): 12/08/16 09:30 This 51 yo male with pmh chronic back pain, and herniated disc, who is on daily Percocet, presents to this ED c/o worsening of back pain x 2 weeks. Denies recent travel, recent trauma/fall, recent illness, GI/ incontinence, saddle anesthesia, urinary symptoms, urinary retention, weakness, paresthesias, or abnormal gait. Denies illegal drug use, or alcohol abuse. Patient admits smoking cigarettes only. (Los Davies) Past Medical History - Provider Review Nursing Documentation Reviewed: Yes - Past History Past History: No Previous - Infectious Disease Hx of Infectious Diseases: None - Tetanus Immunization Tetanus Immunization: Unknown - Past Medical History Past Medical History: Non-Contributing - Cardiac Hx Cardiac Disorders: Yes Hx Pacemaker: No Other/Comment: 3 stents placed in heart - Pulmonary Hx Respiratory Disorders: No Hx Tuberculosis: No - Neurological Hx Paralysis: No - HEENT Hx HEENT Disorder: No - Renal Hx Renal Disorder: No - Endocrine/Metabolic Hx Endocrine Disorders: No - Hematological/Oncological Hx Blood Transfusions: No Hx Blood Transfusion Reaction: No - Integumentary Hx Dermatological Disorder: No - Musculoskeletal/Rheumatological Hx Musculoskeletal Disorders: Yes Hx Back Pain: Yes Hx Falls: Yes (caused back pain) - Gastrointestinal Hx Gastrointestinal Disorders: No - Genitourinary/Gynecological Hx Genitourinary Disorders: No Hx Sexually Transmitted Diseases: No - Psychiatric Hx Emotional Abuse: No Hx Physical Abuse: No Hx Substance Use: Yes (cannabis) - Past Surgical History Past Surgical History: Non-Contributing - Surgical History Hx Coronary Stent: Yes (x3) Hx Dilation and Curettage: Yes Other/Comment: L4 L5 herniated disk /r ankle/r knee x2/l knee x2/r shoulder/ fossa l-3,l-4,l-5 - Anesthesia Hx Anesthesia: Yes Hx Anesthesia Reactions: No Hx Malignant Hyperthermia: No - Suicidal Assessment Feels Threatened In Home Enviroment: No Family/Social History - Physician Review Nursing Documentation Reviewed: Yes Family/Social History: Other (non-contributory) Smoking Status: Heavy Smoker > 10 Cigarettes Daily Hx Alcohol Use: Yes (as per patient he stopped drinking) Hx Substance Use: Yes (cannabis) Substance used: pcp last wk Hx Substance Use Treatment: No Allergies/Home Meds Allergies/Adverse Reactions: Allergies No Known Allergies Allergy (Verified 12/08/16 09:22) Home Medications: Home Meds Medication Instructions Recorded Confirmed oxyCODONE [oxyCODONE Immediate 30 mg PO QID 12/08/16 12/08/16 Release Tab] Review of Systems - Review of Systems Constitutional: Normal. absent: Fatigue, Weight Change, Fevers, Night Sweats Eyes: Normal ENT: Normal Respiratory: Normal Cardiovascular: Normal Gastrointestinal: Normal Genitourinary Male: Normal Musculoskeletal: Back Pain Skin: Normal. absent: Rash Neurological: Normal Endocrine: Normal Hemo/Lymphatic: Normal Psychiatric: Normal Physical Exam Temperature: Afebrile Blood Pressure: Normal Pulse: Regular Respiratory Rate: Normal Appearance: Positive for: Well-Appearing, Non-Toxic, Comfortable Pain Distress: None Mental Status: Positive for: Alert and Oriented X 3 - Systems Exam Head: Present: Atraumatic, Normocephalic Pupils: Present: PERRL Extroacular Muscles: Present: EOMI Conjunctiva: Present: Normal Mouth: Present: Moist Mucous Membranes Neck: Present: Normal Range of Motion Respiratory/Chest: Present: Clear to Auscultation, Good Air Exchange. No: Respiratory Distress, Accessory Muscle Use Cardiovascular: Present: Regular Rate and Rhythm, Normal S1, S2. No: Murmurs Abdomen: Present: Normal Bowel Sounds. No: Tenderness, Distention, Peritoneal Signs Back: Present: Normal Inspection, Pain with Leg Raise. No: CVA Tenderness, Midline Tenderness, Paraspinal Tenderness Upper Extremity: Present: Normal Inspection, Normal ROM, NORMAL PULSES, Neurovascularly Intact, Capillary Refill < 2s. No: Cyanosis, Edema Lower Extremity: Present: Normal Inspection, NORMAL PULSES, Normal ROM, Neurovascularly Intact, Capillary Refill < 2 s. No: Edema, CALF TENDERNESS Neurological: Present: GCS=15, CN II-XII Intact, Speech Normal, Motor Func Grossly Intact, Normal Sensory Function, Normal Cerebellar Funct, Gait Normal, Memory Normal Skin: Present: Warm, Dry, Normal Color. No: Rashes Psychiatric: Present: Alert, Oriented x 3, Normal Insight, Normal Concentration Vital Signs Temp Pulse Resp BP Pulse Ox 12/08/16 09:25 98.4 F 77 16 121/82 94 L Medical Decision Making Re-evaluation Time: 09:55 Reassessment Condition: Re-examined, Improved ED Course and Treatment: 12/08/16 09:54 Smoking Cessation Counseling: The patient was counseled as to the multiple risks to his/her health from continued use of tobacco products. It was explained that continuing to smoke may lead to multiple short and oysterman negative health consequences, including but not limited to mouth/esophageal/lung cancer, COPD, and heart disease. He/she states he/she understands these risks, and also understands the options and resources available to him/her to help him/her stop smoking. Nicotine replacement therapy, local hotlines, and local resources were discussed as viable options for helping him/her stop his/her tobacco use. The total time spent counseling the patient regarding tobacco cessation was 10 minutes. 12/08/16 09:54 Re-evaluation. Patient feels better. Discussed results and plan with patient who expresses understanding. All questions answered and there is agreement with the plan to discharge home with instructions. Patient stable for discharge. Return if symptoms persist or worsen. (Los Davies) I was available for consultation during PA evaluation. The chart was reviewed by me, and I agree with disposition. The documented history was done by the physician internship coordinator. The documented physical exam was done by the physician internship coordinator. The documented procedures were done by the physician internship coordinator. (Alli Nielsen) - Medication Orders Current Medication Orders: Discontinued Medications Ketorolac Tromethamine (Toradol) 60 mg IM STAT STA Stop: 12/08/16 09:50 Last Admin: 12/08/16 10:01 Dose: 60 mg MAR Pain Assessment Document 12/08/16 10:01 AB (Rec: 12/08/16 10:02 AB [id number]) Pain Reassessment Is this a pain reassessment? Yes Sleep Is patient sleeping during reassessment? No Presence of Pain Presence of Pain Yes Pain Scale Used Pain Scale Used Numeric Location Upper or Lower Lower Pain Location Body Site Back Description Description Constant Pain Behavior Facial Grimacing Aggravating Factors Changing Position Exercise/Activity Alleviating Factors/Management Medication Techniques Alleviating Factors Medication IM Administration Charges Document 12/08/16 10:01 AB (Rec: 12/08/16 10:02 AB [id number]) Injection Site MAR Injection Site Left Gluteus Medius Charges for Administration # of IM Administrations 1 Disposition/Present on Arrival - Present on Arrival Any Indicators Present on Arrival: No History of DVT/PE: No History of Uncontrolled Diabetes: No Urinary Catheter: No History of Decub. Ulcer: No History Surgical Site Infection Following: None - Disposition Have Diagnosis and Disposition been Completed?: Yes Disposition Time: 09:55 Patient Plan: Discharge - Disposition Diagnosis: Chronic back pain greater than 3 months duration Disposition: HOME/ ROUTINE Condition: GOOD Discharge Instructions (ExitCare): Chronic Back Pain (ED) Additional Instructions: Call private doctor for follow up visit in 1-2 days. Continue with your pain management doctor for better pain control. Return to emergency if symptoms worsen. Prescriptions: Cyclobenzaprine [Cyclobenzaprine HCl] 10 mg PO DAILY #10 tab Referrals: Richard Welsh JD, MD [Primary Care Provider] - Follow up with primary Forms: [employer] ([place])
== END 2016-12-08 10:05 | disposition home or self-care (01) ==
LOC: ED 09:06
DX: M54.9 Dorsalgia, unspecified (principal); G89.29 Other chronic pain
CPT/HCPCS: 96372; 99283; J1885

== ENCOUNTER 2016-12-14 21:01 | Emergency (ER) | payer OTHER ==
[2016-12-14 21:01] VITALS: BMI 29.0
[2016-12-14 21:09] VITALS: RESP 18; TEMP 98
--- NOTE | 2016-12-14 23:09 | ED PDOC ---
Arrival/HPI - General Chief Complaint: Pain, Chronic Time Seen by Provider: 12/14/16 21:42 Historian: Patient - History of Present Illness Narrative History of Present Illness (Text): 12/14/16 22:09 This 51 yo male with pmh chronic back pain, and herniated disc, who is on daily Percocet, presents to this ED c/o chronic back pain for "years". Patient stated he is currently taking Percocet for chronic back pain. Patient denies recent trauma, weakness, paresthesias, GI/ incontinence, saddle anesthesia, IV drug use, n/v, urinary retention, or urinary symptoms. Denies fever, skin rash, recent procedure, recent travel or sick contact. Time/Duration: Other (see hpi) Symptom Onset: Other (chronic) Symptom Course: Unchanged Context: Home Past Medical History - Provider Review Nursing Documentation Reviewed: Yes - Past History Past History: No Previous - Infectious Disease Hx of Infectious Diseases: None - Tetanus Immunization Tetanus Immunization: Unknown - Past Medical History Past Medical History: Non-Contributing - Cardiac Hx Cardiac Disorders: Yes Hx Pacemaker: No Other/Comment: 3 stents placed in heart - Pulmonary Hx Respiratory Disorders: No Hx Tuberculosis: No - Neurological Hx Paralysis: No - HEENT Hx HEENT Disorder: No - Renal Hx Renal Disorder: No - Endocrine/Metabolic Hx Endocrine Disorders: No - Hematological/Oncological Hx Blood Transfusions: No Hx Blood Transfusion Reaction: No - Integumentary Hx Dermatological Disorder: No - Musculoskeletal/Rheumatological Hx Musculoskeletal Disorders: Yes Hx Back Pain: Yes Hx Falls: Yes (caused back pain) - Gastrointestinal Hx Gastrointestinal Disorders: No - Genitourinary/Gynecological Hx Genitourinary Disorders: No Hx Sexually Transmitted Diseases: No - Psychiatric Hx Emotional Abuse: No Hx Physical Abuse: No Hx Substance Use: Yes (cannabis) - Past Surgical History Past Surgical History: Non-Contributing - Surgical History Hx Coronary Stent: Yes (x3) Hx Dilation and Curettage: Yes Other/Comment: L4 L5 herniated disk /r ankle/r knee x2/l knee x2/r shoulder/ fossa l-3,l-4,l-5 - Anesthesia Hx Anesthesia: Yes Hx Anesthesia Reactions: No Hx Malignant Hyperthermia: No - Suicidal Assessment Feels Threatened In Home Enviroment: No Family/Social History - Physician Review Nursing Documentation Reviewed: Yes Family/Social History: Other (non-contributory) Smoking Status: Heavy Smoker > 10 Cigarettes Daily Hx Alcohol Use: Yes (as per patient he stopped drinking) Hx Substance Use: Yes (cannabis) Substance used: pcp last wk Hx Substance Use Treatment: No Allergies/Home Meds Allergies/Adverse Reactions: Allergies No Known Allergies Allergy (Verified 12/08/16 09:22) Home Medications: Home Meds Medication Instructions Recorded Confirmed oxyCODONE [oxyCODONE Immediate 30 mg PO QID 12/08/16 12/14/16 Release Tab] Review of Systems - Review of Systems Constitutional: Normal. absent: Fatigue, Weight Change, Fevers Eyes: Normal ENT: Normal Respiratory: Normal. absent: SOB, Cough Cardiovascular: Normal. absent: Chest Pain, Palpitations Gastrointestinal: Normal. absent: Abdominal Pain, Nausea, Vomiting Genitourinary Male: Normal. absent: Dysuria, Frequency, Hematuria Musculoskeletal: Back Pain. absent: Arthralgias, Neck Pain, Joint Swelling, Myalgias Skin: Normal. absent: Rash, Pruritis, Skin Lesions Neurological: Normal. absent: Headache, Dizziness, Focal Weakness, Gait Changes , Speech Changes, Facial Droop, Disequilibrium, Seizure Endocrine: Normal Hemo/Lymphatic: Normal Psychiatric: Normal Physical Exam Vital Signs Temp Pulse Resp BP Pulse Ox 12/14/16 21:06 98.0 F 70 18 155/97 H 96 Temperature: Afebrile Blood Pressure: Normal Pulse: Regular Respiratory Rate: Normal Appearance: Positive for: Well-Appearing, Non-Toxic, Comfortable Pain Distress: None Mental Status: Positive for: Alert and Oriented X 3 - Systems Exam Head: Present: Atraumatic, Normocephalic Pupils: Present: PERRL Extroacular Muscles: Present: EOMI Conjunctiva: Present: Normal Mouth: Present: Moist Mucous Membranes Pharnyx: Present: Normal. No: ERYTHEMA, EXUDATE Nose (External): Present: Atraumatic Nose (Internal): Present: Normal Inspection Neck: Present: Normal Range of Motion Respiratory/Chest: Present: Clear to Auscultation, Good Air Exchange. No: Respiratory Distress, Accessory Muscle Use, Wheezes, Retracting, Tender to Palpation Cardiovascular: Present: Regular Rate and Rhythm, Normal S1, S2. No: Murmurs Abdomen: Present: Normal Bowel Sounds. No: Tenderness, Distention, Peritoneal Signs, Rebound, Guarding Back: Present: Normal Inspection, Other (No skin rash). No: CVA Tenderness, Midline Tenderness, Paraspinal Tenderness, Pain with Leg Raise, Decubitus Ulcer Upper Extremity: Present: Normal Inspection, Normal ROM, NORMAL PULSES, Neurovascularly Intact, Capillary Refill < 2s. No: Cyanosis, Edema Lower Extremity: Present: Normal Inspection, NORMAL PULSES, Normal ROM, Neurovascularly Intact, Capillary Refill < 2 s. No: Edema, CALF TENDERNESS Neurological: Present: GCS=15, CN II-XII Intact, Speech Normal, Motor Func Grossly Intact, Normal Sensory Function, Normal Cerebellar Funct, Gait Normal, Memory Normal Skin: Present: Warm, Dry, Normal Color. No: Rashes Psychiatric: Present: Alert, Oriented x 3, Normal Insight, Normal Concentration Medical Decision Making ED Course and Treatment: 12/14/16 23:17 Re-evaluation. Patient feels better. Discussed results and plan with patient who expresses understanding. All questions answered and there is agreement with the plan to discharge home with instructions. Patient stable for discharge. Return if symptoms persist or worsen Patient came c/o chronic back pain for "many years". Patient is currently on Percocet for chronic back pain. I explained patient that he needs to f/u pmd, and pain management doctor for further evaluation. Patient understood plan. Re-evaluation Time: 23:19 Reassessment Condition: Re-examined, Unchanged - Medication Orders Current Medication Orders: Ketorolac Tromethamine (Toradol) 30 mg IM STAT STA Stop: 12/14/16 23:10 Disposition/Present on Arrival - Present on Arrival Any Indicators Present on Arrival: No History of DVT/PE: No History of Uncontrolled Diabetes: No Urinary Catheter: No History of Decub. Ulcer: No History Surgical Site Infection Following: None - Disposition Have Diagnosis and Disposition been Completed?: Yes Diagnosis: Chronic back pain Disposition: HOME/ ROUTINE Disposition Time: 23:19 Patient Plan: Discharge Condition: GOOD Discharge Instructions (ExitCare): Chronic Back Pain (ED) Additional Instructions: Call private doctor for follow up visit in 1-2 days. Take medication as instructed. Call your pain management doctor for further evaluation. Return to emergency if you develop fever or worsen symptoms. Prescriptions: Cyclobenzaprine [Cyclobenzaprine HCl] 10 mg PO DAILY #7 tab Referrals: Richard Welsh JD, MD [Primary Care Provider] - Follow up with primary Forms: [employer] (Slovenian)
[2016-12-14 23:28] VITALS: BP 148/76; PULSE 75; O2SAT 98
== END 2016-12-14 23:27 | disposition home or self-care (01) ==
LOC: ED 21:01
DX: G89.29 Other chronic pain (principal); M54.9 Dorsalgia, unspecified
CPT/HCPCS: 96372; 99283; J1885

== ENCOUNTER 2016-12-17 07:28 | Emergency (ER) | payer OTHER ==
[2016-12-17 07:29] VITALS: BMI 29.0
[2016-12-17 08:12] VITALS: RESP 18; TEMP 97.6
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
[2016-12-17] MEDS ORDERED: TDAP Vaccine 0.5 mL Syr IM ONE (08:20)
[2016-12-17 10:10] VITALS: BP 148/72; PULSE 78; O2SAT 97
--- NOTE | 2016-12-17 11:01 | RAD ---
PROCEDURE: Radiographs of the Lumbar Spine. HISTORY: back pain COMPARISON: No prior. FINDINGS: BONES: Normal alignment. No listhesis. No fracture. DISC SPACES: Unremarkable. OTHER FINDINGS: None. IMPRESSION: Unremarkable radiographs of the lumbar spine.
--- NOTE | 2016-12-17 11:01 | RAD ---
PROCEDURE: Radiographs of the pelvis. HISTORY: back pain s/p fall COMPARISON: None. FINDINGS: BONES: Pelvic Bones: Unremarkable. Hips: Grossly unremarkable. JOINTS: Sacroiliac Joints: Unremarkable. Pubic Symphysis: Unremarkable. OTHER FINDINGS: None. IMPRESSION: Unremarkable radiographs of the pelvis.
== END 2016-12-17 10:10 | disposition home or self-care (01) ==
LOC: ED 07:28
DX: M54.5 Low back pain (principal); Z23 Encounter for immunization
CPT/HCPCS: 72100; 72170; 90471; 90715; 96372; 99283; J1885

== ENCOUNTER 2016-12-18 20:07 | Emergency (ER) | payer OTHER ==
[2016-12-18 20:16] VITALS: TEMP 98.1
--- NOTE | 2016-12-18 20:52 | ED PDOC ---
Arrival/HPI <Leland Macedo - Last Filed: 12/18/16 21:03> <Kenneth Richey - Last Filed: 12/19/16 05:12> - General Chief Complaint: Back Pain Time Seen by Provider: 12/18/16 20:33 - History of Present Illness Narrative History of Present Illness (Text): 51 year old male with a past medical history of lumbago and CAD s/p stents who presents with left sacral pain with radiation down the buttock to the affected leg. He fell yesterday off his back and had X-rays of the affected hip and pelvis that were negative for fracture. He denies any weakness, numbness/ tingling, loss of bowel or bladder continence. 12/18/16 20:48 (Kenneth Richey) Past Medical History - Provider Review Nursing Documentation Reviewed: Yes - Past History Past History: No Previous - Infectious Disease Hx of Infectious Diseases: None - Tetanus Immunization Tetanus Immunization: Unknown - Past Medical History Past Medical History: Non-Contributing - Cardiac Hx Cardiac Disorders: Yes Hx Pacemaker: No Other/Comment: 3 stents placed in heart - Pulmonary Hx Respiratory Disorders: No Hx Tuberculosis: No - Neurological Hx Paralysis: No - HEENT Hx HEENT Disorder: No - Renal Hx Renal Disorder: No - Endocrine/Metabolic Hx Endocrine Disorders: No - Hematological/Oncological Hx Blood Transfusions: No Hx Blood Transfusion Reaction: No - Integumentary Hx Dermatological Disorder: No - Musculoskeletal/Rheumatological Hx Musculoskeletal Disorders: Yes Hx Back Pain: Yes Hx Falls: Yes (caused back pain) - Gastrointestinal Hx Gastrointestinal Disorders: No - Genitourinary/Gynecological Hx Genitourinary Disorders: No Hx Sexually Transmitted Diseases: No - Psychiatric Hx Emotional Abuse: No Hx Physical Abuse: No Hx Substance Use: Yes (cannabis) - Past Surgical History Past Surgical History: Non-Contributing - Surgical History Hx Coronary Stent: Yes (x3) Hx Dilation and Curettage: Yes Other/Comment: L4 L5 herniated disk /r ankle/r knee x2/l knee x2/r shoulder/ fossa l-3,l-4,l-5 - Anesthesia Hx Anesthesia: Yes Hx Anesthesia Reactions: No Hx Malignant Hyperthermia: No - Suicidal Assessment Feels Threatened In Home Enviroment: No <Kenneth Richey - Last Filed: 12/19/16 05:12> Family/Social History - Physician Review Nursing Documentation Reviewed: Yes Family/Social History: No Known Family HX Smoking Status: Heavy Smoker > 10 Cigarettes Daily Hx Alcohol Use: Yes (as per patient he stopped drinking) Hx Substance Use: Yes (cannabis) Substance used: pcp last wk Hx Substance Use Treatment: No <KaidenKenneth - Last Filed: 12/19/16 05:12> Allergies/Home Meds <Leland Macedo - Last Filed: 12/18/16 21:03> <Kenneth Richey - Last Filed: 12/19/16 05:12> Allergies/Adverse Reactions: Allergies No Known Allergies Allergy (Verified 12/17/16 08:07) Home Medications: Home Meds Medication Instructions Recorded Confirmed oxyCODONE [oxyCODONE Immediate 30 mg PO QID 12/08/16 12/18/16 Release Tab] Review of Systems - Physician Review All systems were reviewed & negative as marked: Yes - Review of Systems Constitutional: Normal. absent: Fatigue, Weight Change Eyes: Normal. absent: Vision Changes, Photophobia ENT: Normal. absent: Hearing Changes, Tinnitus Respiratory: Normal Cardiovascular: absent: Chest Pain, Palpitations Gastrointestinal: absent: Abdominal Pain, Stool Changes Genitourinary Male: absent: Frequency, Hematuria, Urinary Output Changes Musculoskeletal: Normal, Back Pain Skin: absent: Pruritis Neurological: Normal. absent: Dizziness Endocrine: Normal. absent: Polyuria, Polydipsia Hemo/Lymphatic: Normal. absent: Easy Bleeding, Easy Bruising Psychiatric: Normal. absent: Depression, Suicidal Ideation <KaidenKenneth - Last Filed: 12/19/16 05:12> Physical Exam Temperature: Afebrile Blood Pressure: Hypertensive Pulse: Regular Respiratory Rate: Normal Appearance: Positive for: Non-Toxic, Unkept Pain Distress: Moderate - Systems Exam Head: Present: Atraumatic Pupils: Present: PERRL Extroacular Muscles: Present: EOMI Mouth: Present: Moist Mucous Membranes Pharnyx: Present: Normal. No: ERYTHEMA, EXUDATE Neck: Present: Normal Range of Motion. No: Meningeal Signs, Paraspinal Tenderness Respiratory/Chest: Present: Clear to Auscultation. No: Accessory Muscle Use Cardiovascular: Present: Regular Rate and Rhythm, Normal S1, S2 Abdomen: Present: Normal Bowel Sounds. No: Tenderness Upper Extremity: Present: Normal Inspection. No: Cyanosis, Edema Lower Extremity: Present: Normal Inspection, Other (left piriformis and left trachanteric tenderness elicited to palpation). No: Edema Neurological: Present: CN II-XII Intact, Speech Normal, Motor Func Grossly Intact, Other Skin: Present: Warm, Rashes, Normal Color Psychiatric: Present: Alert, Oriented x 3 <Kenneth Richey - Last Filed: 12/19/16 05:12> Vital Signs Temp Pulse Resp BP Pulse Ox 12/18/16 22:05 85 16 176/90 H 92 L 12/18/16 20:07 98.1 F 76 18 162/87 H 96 Medical Decision Making <Leland Macedo - Last Filed: 12/18/16 21:03> - EKG Interpretation Interpreted by ED Physician: Yes Type: 12 lead EKG Comparison: Similar to previous EKG <Kenneth Richey - Last Filed: 12/19/16 05:12> ED Course and Treatment: 12/18/16 21:03 Pt. seen and evaluated with the forensic medical examiner.Agree with HPI,clinical findings,treatment plan (Leland Macedo) Patient examined. Ordered 60 mg of Toradol IM and 5 mg of Flexeril. 12/18/16 20:58 Patient resting comfortably. No symptoms at this time. 12/18/16 23:39 Patient states he is now suicidal at the time of discharge. PES ordered. EKG shows NSR without any significant S-T changes. 12/19/16 00:36 Psychiatry has cleared patient for discharge. Patient is felt not to be a threat to himself or others. 12/19/16 04:25 Patient's urine drug screen was positive for PCP. 12/19/16 05:10 (Kenneth Richey) - Lab Interpretations Lab Results: 12/19/16 00:28 12/19/16 00:28 Lab Results 12/19/16 01:50: Urine Opiates Screen Negative, Urine Methadone Screen Negative, Ur Barbiturates Screen Negative, Ur Phencyclidine Scrn Positive H, Ur Amphetamines Screen Negative, U Benzodiazepines Scrn Negative, U Oth Cocaine Metabols Negative, U Cannabinoids Screen Negative 12/19/16 00:28: Alcohol, Quantitative < 10 12/19/16 00:28: WBC 9.7, RBC 4.99, Hgb 14.8, Hct 43.3, MCV 86.8, MCH 29.7, MCHC 34.2, RDW 12.9, Plt Count 370, MPV 10.6 12/19/16 00:28: Sodium 142, Potassium 3.9, Chloride 105, Carbon Dioxide 26, Anion Gap 15, BUN 32 H, Creatinine 0.8, Est GFR ( Amer) > 60, Est GFR ( Non-Af Amer) > 60, Random Glucose 84, Calcium 9.4, Total Bilirubin 0.7, AST 31, ALT 30, Alkaline Phosphatase 87, Total Protein 7.7, Albumin 4.3, Globulin 3.4, Albumin/Globulin Ratio 1.3 - Medication Orders Current Medication Orders: Discontinued Medications Cyclobenzaprine HCl (Flexeril) 5 mg PO STAT STA Stop: 12/18/16 20:48 Last Admin: 12/18/16 21:20 Dose: 5 mg Ketorolac Tromethamine (Toradol) 60 mg IM STAT STA Stop: 12/18/16 20:48 Last Admin: 12/18/16 21:20 Dose: 60 mg MAR Pain Assessment Document 12/18/16 21:20 HI (Rec: 12/18/16 21:20 [place] [id number]) Pain Reassessment Is this a pain reassessment? Yes Sleep Is patient sleeping during reassessment? No Presence of Pain Presence of Pain Yes Pain Scale Used Pain Scale Used Numeric Location Upper or Lower Lower Pain Location Body Site Back IM Administration Charges Document 12/18/16 21:20 HI (Rec: 12/18/16 21:20 [place] [id number]) Charges for Administration # of IM Administrations 1 - PA / [employer] / Resident Statement / has reviewed & agrees with the documentation as recorded. / has examined the patient and agrees with the treatment plan. <Leland Macedo - Last Filed: 12/18/16 21:03> Disposition/Present on Arrival <Leland Macedo - Last Filed: 12/18/16 21:03> - Present on Arrival Any Indicators Present on Arrival: No History of DVT/PE: No History of Uncontrolled Diabetes: No Urinary Catheter: No History of Decub. Ulcer: No History Surgical Site Infection Following: None - Disposition Have Diagnosis and Disposition been Completed?: Yes Disposition Time: 04:24 <KaidenKenneth - Last Filed: 12/19/16 05:12> - Disposition Diagnosis: Sacral back pain Disposition: HOME/ ROUTINE Patient Problems: Current Active Problems Problem Status Onset Sacral back pain Acute Condition: STABLE Discharge Instructions (ExitCare): Chronic Back Pain (ED) Prescriptions: Cyclobenzaprine [Cyclobenzaprine HCl] 10 mg PO TID #15 tab Referrals: Richard Welsh JD, MD [Primary Care Provider] - Follow up with primary Forms: [employer] ([place])
[2016-12-19 01:08] LABS: HEMATOCRIT 43.3 % (42.0-52.0); MEAN CELL VOLUME 86.8 fl (80.0-105.0); MEAN CORPUSCULAR HEMOGLOBIN 29.7 pg (25.0-35.0); MEAN CORPUSCULAR HGB CONC 34.2 g/dl (31.0-37.0); MEAN PLATELET VOLUME 10.6 fl (7.0-11.0); RED CELL DISTRIBUTION WIDTH 12.9 % (11.5-14.5); WHITE BLOOD COUNT 9.7 10^3/ul (4.5-11.0)
[2016-12-19 01:15] LABS: ALB/GLOB RATIO 1.3 (1.1-1.8); ALKALINE PHOSPHATASE 87 U/L (38-126); ALT/SGPT 30 U/L (7-56); AST/SGOT 31 U/L (17-59); BILIRUBIN,TOTAL 0.7 mg/dL (0.2-1.3); BLOOD UREA NITROGEN 32 mg/dL (7-21); CALCIUM 9.4 mg/dL (8.4-10.5); CARBON DIOXIDE 26 mmol/L (21-33); CHLORIDE 105 mmol/L (98-107); GFR AFRICAN-AMERICAN > 60; GLUCOSE,RANDOM 84 mg/dL (70-110); POTASSIUM 3.9 mmol/L (3.6-5.0); SODIUM 142 mmol/L (132-148); TOTAL PROTEIN 7.7 g/dL (5.8-8.3)
[2016-12-19 06:06] VITALS: BP 146/92; PULSE 98; RESP 18; O2SAT 96
--- NOTE | 2016-12-20 02:41 | CARD ---
APPROVED REPORT EKG Measurement Heart [id number] <Conclusion> Normal sinus rhythm with sinus arrhythmia Possible Inferior infarct, age undetermined Abnormal ECG
== END 2016-12-19 07:27 | disposition home or self-care (01) ==
LOC: ED 20:07
DX: M53.3 Sacrococcygeal disorders, not elsewhere classified (principal)
CPT/HCPCS: 80053; 80320; 80324; 80345; 80346; 80349; 80353; 80358; 80361; 83992; 85027; 90791; 93005; 96372; 99284; J1885

== ENCOUNTER 2017-01-07 18:14 | Emergency (ER) | payer OTHER ==
[2017-01-07 18:15] VITALS: BMI 29.0
[2017-01-07 18:31] VITALS: BP 163/97; PULSE 76; RESP 20; TEMP 98.3; O2SAT 96
--- NOTE | 2017-01-07 19:31 | ED PDOC ---
Arrival/HPI - General Chief Complaint: Lower Extremity Problem/Injury Time Seen by Provider: 01/07/17 18:27 Historian: Patient - History of Present Illness Narrative History of Present Illness (Text): 01/07/17 19:28 A 51 year old male presents to the emergency department for left hip pain for three weeks. When patient was initially asked why he presents to the emergency department, he stated "I don't know", but he reports pain in left side of hip s/ p fall about 2.5 weeks ago, unchanged today. On further questioning, patient states he is homeless, looking for place to stay. He also says his doctor ordered an MRI of his hip which he was supposed to have today but he didn't make it to the appointment. Patient reports to PCP use last a couple days ago. Denies any alcohol use. PMD: Dr. Welsh Symptom Onset: Sudden Symptom Course: Unchanged Activities at Onset: Rest Context: Home Past Medical History - Provider Review Nursing Documentation Reviewed: Yes - Past History Past History: No Previous - Infectious Disease Hx of Infectious Diseases: None - Tetanus Immunization Tetanus Immunization: Unknown - Past Medical History Past Medical History: Non-Contributing - Cardiac Hx Cardiac Disorders: Yes Hx Pacemaker: No Other/Comment: 3 stents placed in heart - Pulmonary Hx Respiratory Disorders: No Hx Tuberculosis: No - Neurological Hx Paralysis: No - HEENT Hx HEENT Disorder: No - Renal Hx Renal Disorder: No - Endocrine/Metabolic Hx Endocrine Disorders: No - Hematological/Oncological Hx Blood Transfusions: No Hx Blood Transfusion Reaction: No - Integumentary Hx Dermatological Disorder: No - Musculoskeletal/Rheumatological Hx Musculoskeletal Disorders: Yes Hx Back Pain: Yes Hx Falls: Yes (caused back pain) - Gastrointestinal Hx Gastrointestinal Disorders: No - Genitourinary/Gynecological Hx Genitourinary Disorders: No Hx Sexually Transmitted Diseases: No - Psychiatric Hx Emotional Abuse: No Hx Physical Abuse: No Hx Substance Use: Yes (cannabis) - Past Surgical History Past Surgical History: Non-Contributing - Surgical History Hx Coronary Stent: Yes (x3) Hx Dilation and Curettage: Yes Other/Comment: L4 L5 herniated disk /r ankle/r knee x2/l knee x2/r shoulder/ fossa l-3,l-4,l-5 - Anesthesia Hx Anesthesia: Yes Hx Anesthesia Reactions: No Hx Malignant Hyperthermia: No - Suicidal Assessment Feels Threatened In Home Enviroment: No Family/Social History - Physician Review Nursing Documentation Reviewed: Yes Family/Social History: Other (non-contributory) Smoking Status: Heavy Smoker > 10 Cigarettes Daily Hx Alcohol Use: Yes (as per patient he stopped drinking) Hx Substance Use: Yes (cannabis) Substance used: PCP Hx Substance Use Treatment: No Allergies/Home Meds Allergies/Adverse Reactions: Allergies No Known Allergies Allergy (Verified 12/17/16 08:07) Home Medications: Home Meds Medication Instructions Recorded Confirmed oxyCODONE [oxyCODONE Immediate 30 mg PO QID 12/08/16 12/18/16 Release Tab] Review of Systems - Physician Review All systems were reviewed & negative as marked: Yes - Review of Systems Constitutional: absent: Fevers Musculoskeletal: Other (left hip pain) Physical Exam Vital Signs Reviewed: Yes Vital Signs Temp Pulse Resp BP Pulse Ox 01/07/17 18:27 98.3 F 76 20 163/97 H 96 Appearance: Positive for: Well-Appearing, Comfortable Pain Distress: None Mental Status: Positive for: Alert and Oriented X 3 - Systems Exam Head: Present: Atraumatic, Normocephalic Pupils: Present: PERRL Extroacular Muscles: Present: EOMI Conjunctiva: Present: Normal Mouth: Present: Moist Mucous Membranes Neck: Present: Normal Range of Motion Respiratory/Chest: Present: Clear to Auscultation, Good Air Exchange. No: Respiratory Distress, Accessory Muscle Use Cardiovascular: Present: Regular Rate and Rhythm, Normal S1, S2. No: Murmurs Abdomen: Present: Normal Bowel Sounds. No: Tenderness, Distention, Peritoneal Signs Back: Present: Normal Inspection Upper Extremity: Present: Normal Inspection. No: Cyanosis, Edema Lower Extremity: Present: Normal Inspection, Normal ROM. No: Edema Neurological: Present: GCS=15, CN II-XII Intact, Speech Normal Skin: Present: Warm, Dry, Normal Color. No: Rashes Psychiatric: Present: Alert, Oriented x 3, Normal Insight, Normal Concentration Medical Decision Making - Medication Orders Current Medication Orders: Discontinued Medications Ketorolac Tromethamine (Toradol) 15 mg IM STAT STA Stop: 01/07/17 20:20 Last Admin: 01/07/17 20:39 Dose: 15 mg MAR Pain Assessment Document 01/07/17 20:39 OCS (Rec: 01/07/17 20:40 OCS [id number]) Pain Reassessment Is this a pain reassessment? Yes Sleep Is patient sleeping during reassessment? No Pain Scale Used Pain Scale Used Numeric Location Left, Right or Bilateral Left Upper or Lower Lower Pain Location Body Site Chest Abdomen Leg Description Description Constant IM Administration Charges Document 01/07/17 20:39 OCS (Rec: 01/07/17 20:40 OCS [id number]) Injection Site MAR Injection Site Left Deltoid Charges for Administration # of IM Administrations 1 - Scribe Statement The provider has reviewed the documentation as recorded by the Jesus Travis Provider Scribe Attestation: All medical record entries made by the Scribe were at my direction and personally dictated by me. I have reviewed the chart and agree that the record accurately reflects my personal performance of the history, physical exam, medical decision making, and the department course for this patient. I have also personally directed, reviewed, and agree with the discharge instructions and disposition. Disposition/Present on Arrival - Present on Arrival Any Indicators Present on Arrival: No History of DVT/PE: No History of Uncontrolled Diabetes: No Urinary Catheter: No History of Decub. Ulcer: No History Surgical Site Infection Following: None - Disposition Have Diagnosis and Disposition been Completed?: Yes Diagnosis: Chronic pain, Homelessness Disposition: HOME/ ROUTINE Disposition Time: 22:42 Patient Problems: Current Active Problems Problem Status Onset Back pain Acute Suicidal ideations Acute Condition: STABLE Discharge Instructions (ExitCare): Chronic Pain (ED) Additional Instructions: Please follow up with your doctor. Referrals: Richard Welsh JD, MD [Primary Care Provider] - Follow up with primary Forms: [employer] (Urdu)
== END 2017-01-07 22:42 | disposition home or self-care (01) ==
LOC: ED 18:14
DX: G89.29 Other chronic pain (principal); F17.210 Nicotine dependence, cigarettes, uncomplicated; Z59.0 Homelessness
CPT/HCPCS: 96372; 99283; J1885

== ENCOUNTER 2017-09-27 03:23 | Emergency (ER) | payer OTHER ==
[2017-09-27 03:24] VITALS: BMI 29.0
[2017-09-27 03:37] VITALS: TEMP 98
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
[2017-09-27 11:09] VITALS: BP 112/59; PULSE 68; RESP 17; O2SAT 97
== END 2017-09-27 08:54 | disposition home or self-care (01) ==
LOC: ED 03:23
DX: S09.90XA Unspecified injury of head, initial encounter (principal); Y04.0XXA Assault by unarmed brawl or fight, initial encounter; F10.129 Alcohol abuse with intoxication, unspecified; F17.210 Nicotine dependence, cigarettes, uncomplicated
CPT/HCPCS: 70450; 72125; 80320; 96372; 99285; J1630; J2060

== ENCOUNTER 2017-11-26 23:51 | Emergency (ER) | payer OTHER ==
[2017-11-26 23:52] VITALS: BMI 29.0
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
[2017-11-27 00:49] VITALS: RESP 17; TEMP 98
[2017-11-27 00:54] VITALS: BP 142/71; PULSE 78; O2SAT 98
== END 2017-11-27 00:54 | disposition home or self-care (01) ==
LOC: ED 23:51
DX: Z03.89 Encounter for observation for other suspected diseases and conditions ruled out (principal); F17.210 Nicotine dependence, cigarettes, uncomplicated; I25.10 Atherosclerotic heart disease of native coronary artery without angina pectoris

== ENCOUNTER 2018-01-10 10:02 | Emergency (ER) | payer OTHER ==
[2018-01-10 10:05] VITALS: BMI 29.7
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
[2018-01-10 10:26] VITALS: BP 114/82; RESP 18
[2018-01-10 11:44] VITALS: PULSE 79; TEMP 98.1; O2SAT 98
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
== END 2018-01-10 11:44 | disposition home or self-care (01) ==
LOC: ED 10:02
DX: S40.012A Contusion of left shoulder, initial encounter (principal); Y08.89XA Assault by other specified means, initial encounter; Y92.89 Other specified places as the place of occurrence of the external cause

== ENCOUNTER 2018-01-25 22:44 | Emergency (ER) | payer OTHER ==
[2018-01-25 23:22] VITALS: BMI 29.0
[2018-01-25 23:24] VITALS: BP 127/90; PULSE 75; RESP 18; TEMP 98.5; O2SAT 96
--- NOTE | 2018-01-26 00:10 | ED PDOC ---
Arrival/HPI - General Chief Complaint: Dental Pain Time Seen by Provider: 01/25/18 23:03 Historian: Patient - History of Present Illness Narrative History of Present Illness (Text): Madhav Wong is a 52 year old male, whose past medical history includes chronic back pain, substance abuse, and CAD with stents, who presents to the Emergency department complaining of dental pain. Patient states 2 teeth on the right upper side of his mouth broke off and he "wants it fixed." Patient states he does not want pain medication, as he already has pain medication. Patient denies any fever, facial swelling, or any other complaints. Symptom Onset: Gradual Symptom Course: Unchanged Activities at Onset: Light Context: Home Past Medical History - Provider Review Nursing Documentation Reviewed: Yes - Past History Past History: No Previous - Infectious Disease Hx of Infectious Diseases: None - Tetanus Immunization Tetanus Immunization: Unknown - Past Medical History Past Medical History: Non-Contributing - Cardiac Hx Cardiac Disorders: Yes Other/Comment: 3 stents placed in heart - Pulmonary Hx Respiratory Disorders: No - Neurological Hx Neurological Disorder: No - HEENT Hx HEENT Disorder: No - Renal Hx Renal Disorder: No - Endocrine/Metabolic Hx Endocrine Disorders: No - Hematological/Oncological Hx Blood Disorders: No - Integumentary Hx Dermatological Disorder: No - Musculoskeletal/Rheumatological Hx Musculoskeletal Disorders: Yes Hx Arthritis: Yes (multiple back surgeries) - Gastrointestinal Hx Gastrointestinal Disorders: No - Genitourinary/Gynecological Hx Genitourinary Disorders: No - Psychiatric Hx Psychophysiologic Disorder: No Hx Substance Use: Yes (cannabis) - Past Surgical History Past Surgical History: Non-Contributing - Surgical History Hx Coronary Stent: Yes (x3) Hx Dilation and Curettage: Yes Other/Comment: L4 L5 herniated disk /r ankle/r knee x2/l knee x2/r shoulder/fossa l-3,l-4,l-5 - Anesthesia Hx Anesthesia: Yes Hx Anesthesia Reactions: No Hx Malignant Hyperthermia: No - Suicidal Assessment Feels Threatened In Home Enviroment: No Family/Social History - Physician Review Nursing Documentation Reviewed: Yes Family/Social History: Unknown Family HX Smoking Status: Heavy Smoker > 10 Cigarettes Daily Hx Alcohol Use: Yes (as per patient he stopped drinking) Hx Substance Use: Yes (cannabis) Substance used: pcp last wk Hx Substance Use Treatment: No Allergies/Home Meds Allergies/Adverse Reactions: Allergies No Known Allergies Allergy (Verified 01/25/18 23:22) Home Medications: Home Meds Medication Instructions Recorded Confirmed oxyCODONE [oxyCODONE Immediate 30 mg PO QID 12/08/16 01/10/18 Release Tab] Review of Systems - Physician Review All systems were reviewed & negative as marked: Yes - Review of Systems Constitutional: absent: Fevers ENT: Other (+dental pain) Physical Exam Vital Signs Reviewed: Yes Vital Signs Temp Pulse Resp BP Pulse Ox 01/25/18 23:22 98.5 F 75 18 127/90 96 Temperature: Afebrile Blood Pressure: Normal Pulse: Regular Respiratory Rate: Normal Appearance: Positive for: Well-Appearing, Non-Toxic, Comfortable Pain Distress: None Mental Status: Positive for: Alert and Oriented X 3 - Systems Exam Head: Present: Atraumatic, Normocephalic. No: Tenderness, Swelling (No facial swelling) Pupils: Present: PERRL Extroacular Muscles: Present: EOMI Conjunctiva: Present: Normal Mouth: Present: Moist Mucous Membranes. No: Normal Teeth (2 teeth missing to right upper mouth #, no surrounding erythema) Pharnyx: Present: Normal. No: ERYTHEMA, EXUDATE, TONSILS ENLARGED, Peritonsilar Swelling, Uvular Deviation, Muffled/Hoarse Voice, Strider, Soft Palate/Uvular Edema Neck: Present: Normal Range of Motion Neurological: Present: GCS=15, CN II-XII Intact, Speech Normal Skin: Present: Warm, Dry, Normal Color. No: Rashes Psychiatric: Present: Alert, Oriented x 3, Normal Insight, Normal Concentration Medical Decision Making ED Course and Treatment: Impression: 52 year old male complaining of dental pain tonight Prior Visits: Notes and results from previous visits were reviewed. Progress Notes & Plan: Pt is in no acute distress. Pt states that he has pain medication at home and is not interested in any pain medication. Advised pt to follow-up with dental clinic/dentist. Patient in agreement with plan to be discharged home. Patient is stable for discharge. Patient was instructed to return if symptoms worsen or new concerning symptoms arise. - PA / GREENHOUSE FLORIST / Resident Statement MD/DO has reviewed & agrees with the documentation as recorded. - Scribe Statement The provider has reviewed the documentation as recorded by the Jesus Hale Provider Scribe Attestation: All medical record entries made by the Scribe were at my direction and personally dictated by me. I have reviewed the chart and agree that the record accurately reflects my personal performance of the history, physical exam, medical decision making, and the department course for this patient. I have also personally directed, reviewed, and agree with the discharge instructions and disposition. Disposition/Present on Arrival - Present on Arrival Any Indicators Present on Arrival: No History of DVT/PE: No History of Uncontrolled Diabetes: No Urinary Catheter: No History of Decub. Ulcer: No History Surgical Site Infection Following: None - Disposition Have Diagnosis and Disposition been Completed?: Yes Diagnosis: Pain, dental Disposition: HOME/ ROUTINE Disposition Time: 00:00 Patient Plan: Discharge Patient Problems: Current Active Problems Problem Status Onset Pain, dental Acute Condition: STABLE Discharge Instructions (ExitCare): Dental Pain Forms: [facility] (Indonesian)
== END 2018-01-26 00:25 | disposition home or self-care (01) ==
LOC: ED 22:44
DX: K08.89 Other specified disorders of teeth and supporting structures (principal); F17.210 Nicotine dependence, cigarettes, uncomplicated

== ENCOUNTER 2018-01-26 07:43 | Inpatient (IN) | payer OTHER ==
[2018-01-26 07:44] VITALS: BMI 29.0
[2018-01-26 07:56] VITALS: RESP 18
--- NOTE | 2018-01-26 07:59 | ED PDOC ---
Arrival/HPI - General Chief Complaint: Psychiatric Evaluation Time Seen by Provider: 01/26/18 07:46 Historian: Patient - History of Present Illness Narrative History of Present Illness (Text): 01/26/18 07:58 52 year old male, whose past medical history includes chronic back pain, alcohol abuse, substance abuse, and CAD with stents on Plavix, depression, and anxiety, presents to the emergency department via EMS complaining of feeling depressed. Patient states he's "tired of being tired". Patient states he feels anxious and is unsure when the last time he took his medication. Patient denies any suicidal ideation or plan to hurt himself. Patient denies any fever, chills, chest pain, shortness of breath, nausea, vomiting, diarrhea, urinary symptoms, back pain, neck pain, headache, dizziness, or any other complaints. PMD: Dr. Richard Welsh Symptom Onset: Gradual Symptom Course: Unchanged Activities at Onset: Light Context: Home Past Medical History - Provider Review Nursing Documentation Reviewed: Yes - Past History Past History: No Previous - Infectious Disease Hx of Infectious Diseases: None - Tetanus Immunization Tetanus Immunization: Unknown - Past Medical History Past Medical History: Non-Contributing - Cardiac Hx Cardiac Disorders: Yes Other/Comment: 3 stents placed in heart - Pulmonary Hx Respiratory Disorders: No - Neurological Hx Neurological Disorder: No - HEENT Hx HEENT Disorder: No - Renal Hx Renal Disorder: No - Endocrine/Metabolic Hx Endocrine Disorders: No - Hematological/Oncological Hx Blood Disorders: No - Integumentary Hx Dermatological Disorder: No - Musculoskeletal/Rheumatological Hx Musculoskeletal Disorders: Yes Hx Arthritis: Yes (multiple back surgeries) - Gastrointestinal Hx Gastrointestinal Disorders: No - Genitourinary/Gynecological Hx Genitourinary Disorders: No - Psychiatric Hx Anxiety: Yes Hx Depression: Yes Hx Substance Use: Yes (cannabis) - Past Surgical History Past Surgical History: Non-Contributing - Surgical History Hx Coronary Stent: Yes (x3) Hx Dilation and Curettage: Yes Other/Comment: L4 L5 herniated disk /r ankle/r knee x2/l knee x2/r shoulder/fossa l-3,l-4,l-5 - Anesthesia Hx Anesthesia: Yes Hx Anesthesia Reactions: No Hx Malignant Hyperthermia: No - Suicidal Assessment Feels Threatened In Home Enviroment: No Family/Social History - Physician Review Nursing Documentation Reviewed: Yes Family/Social History: No Known Family HX Smoking Status: Heavy Smoker > 10 Cigarettes Daily Hx Alcohol Use: Yes (as per patient he stopped drinking) Hx Substance Use: Yes (cannabis) Substance used: pcp last wk Hx Substance Use Treatment: No Allergies/Home Meds Allergies/Adverse Reactions: Allergies No Known Allergies Allergy (Verified 01/26/18 07:56) Home Medications: Home Meds Medication Instructions Recorded Confirmed oxyCODONE [oxyCODONE Immediate 30 mg PO QID 12/08/16 01/26/18 Release Tab] Review of Systems - Physician Review All systems were reviewed & negative as marked: Yes - Review of Systems Constitutional: absent: Fevers, Other (Chills) Respiratory: absent: SOB Cardiovascular: absent: Chest Pain Gastrointestinal: absent: Diarrhea, Nausea, Vomiting Genitourinary Male: absent: Dysuria, Frequency, Hematuria Musculoskeletal: absent: Back Pain, Neck Pain Neurological: absent: Headache, Dizziness Psychiatric: Anxiety, Depression. absent: Suicidal Ideation Physical Exam Vital Signs Reviewed: Yes Vital Signs Temp Pulse Resp BP Pulse Ox 01/26/18 07:54 98.6 F 57 L 18 128/75 96 Temperature: Afebrile Blood Pressure: Normal Pulse: Regular Respiratory Rate: Normal Appearance: Positive for: Well-Appearing, Non-Toxic, Comfortable, Other (tearful) Pain Distress: None Mental Status: Positive for: Alert and Oriented X 3 - Systems Exam Head: Present: Atraumatic, Normocephalic, Other (tearful) Pupils: Present: PERRL Extroacular Muscles: Present: EOMI Conjunctiva: Present: Normal Mouth: Present: Moist Mucous Membranes Neck: Present: Normal Range of Motion Respiratory/Chest: Present: Clear to Auscultation, Good Air Exchange. No: Respiratory Distress, Accessory Muscle Use Cardiovascular: Present: Regular Rate and Rhythm, Normal S1, S2. No: Murmurs Abdomen: No: Tenderness, Distention, Peritoneal Signs Back: Present: Normal Inspection Upper Extremity: Present: Normal Inspection. No: Cyanosis, Edema Lower Extremity: Present: Normal Inspection. No: Edema Neurological: Present: GCS=15, CN II-XII Intact, Speech Normal Skin: Present: Warm, Dry, Normal Color. No: Rashes Psychiatric: Present: Alert, Oriented x 3, Normal Insight, Normal Concentration Medical Decision Making ED Course and Treatment: 01/26/18 07:58 Impression: 52 year old male presents complaining of depression and anxiety today Plan: -- Labs -- EKG -- Chest X-ray -- Xanax -- Urinalysis -- Reassess and disposition Prior Visits: Notes and results from previous visits were reviewed. Progress Notes: 01/26/18 09:14 Labs reviewed with urine toxicology screen positive for PCP and opiate derivatives. Patient is medically cleared. PES child care development specialist called. 01/26/18 10:44 PES evaluation complete with patient eligible for admission to the inpatient [facility]. Patient is stable for transfer to the floor. - Lab Interpretations I have reviewed the lab results: Yes - EKG Interpretation EKG Interpretation (Text): 01/26/18 08:20 EKG shows NSR at 62 BPM with prolong AL intervals. No QT interval prolongation. Interpreted by me. Interpreted by ED Physician: Yes Type: 12 lead EKG - Scribe Statement The provider has reviewed the documentation as recorded by the Scribe Alexey Castro Provider Scribe Attestation: All medical record entries made by the Scribe were at my direction and personally dictated by me. I have reviewed the chart and agree that the record accurately reflects my personal performance of the history, physical exam, medical decision making, and the department course for this patient. I have also personally directed, reviewed, and agree with the discharge instructions and disposition. Disposition/Present on Arrival - Present on Arrival Any Indicators Present on Arrival: No History of DVT/PE: No History of Uncontrolled Diabetes: No Urinary Catheter: No History of Decub. Ulcer: No History Surgical Site Infection Following: None - Disposition Have Diagnosis and Disposition been Completed?: Yes Diagnosis: Depression Disposition: HOSPITALIZED Disposition Time: 10:30 Patient Plan: Admission Condition: STABLE Referrals: Richard Welsh JD, MD [Primary Care Provider] - Follow up with primary Forms: [facility] (Welsh)
[2018-01-26 08:32] LABS: BASO # 0.02 K/mm3 (0.0-2.0); BASO % 0.3 % (0.0-3.0); EOS # 0.2 (0.0-0.7); EOS % 2.9 % (1.5-5.0); GRAN # 3.3 (1.4-6.5); GRAN % 53.3 % (50.0-68.0); LYMPH # 2.2 (1.2-3.4); LYMPH % 34.8 % (22.0-35.0); MEAN CELL VOLUME 87.5 fl (80.0-105.0); MEAN CORPUSCULAR HEMOGLOBIN 29.2 pg (25.0-35.0); MEAN CORPUSCULAR HGB CONC 33.3 g/dl (31.0-37.0); MONO # 0.5 (0.1-0.6); MONO % 8.7 % (1.0-6.0); RBC 4.8 10^6/uL (3.5-6.1); RED CELL DISTRIBUTION WIDTH 13.8 % (11.5-14.5); WHITE BLOOD COUNT 6.2 10^3/uL (4.5-11.0)
[2018-01-26 08:44] LABS: ACETAMINOPHEN < 10.0 ug/ml (10.0-20.0); ALB/GLOB RATIO 1.2 (1.1-1.8); ALT/SGPT 35 U/L (7-56); AST/SGOT 32 U/L (17-59); BLOOD UREA NITROGEN 21 mg/dL (7-21); CALCIUM 8.6 mg/dL (8.4-10.5); GFR NON-AFRICAN AMERICAN > 60; SALICYLATE 1 mg/dL (2.0-20.0)
[2018-01-26 08:53] LABS: BARBITURATES, UR NEGATIVE (NEGATIVE)
[2018-01-26 08:54] LABS: BENZODIAZEPINES, UR NEGATIVE (NEGATIVE); OPIATES, UR NEGATIVE (NEGATIVE); PHENCYCLIDINE, UR POSITIVE (NEGATIVE)
[2018-01-26 09:06] LABS: FREE T4 0.95 ng/dL (0.78-2.19)
[2018-01-26 09:17] LABS: URINE APPEARANCE CLEAR (CLEAR); URINE BILIRUBIN NEGATIVE (NEGATIVE); URINE BLOOD NEGATIVE (NEGATIVE); URINE COLOR DARK YELLOW (YELLOW); URINE GLUCOSE (UA) NEGATIVE (NEGATIVE); URINE LEUKOCYTE ESTERASE NEGATIVE Leu/uL (NEGATIVE); URINE PROTEIN TRACE mg/dL (<30 mg/dL); URINE UROBILINOGEN 0.2 E.U./dL (<1 E.U./dL)
[2018-01-26 09:24] LABS: URINE RBC 0 - 2 /hpf (0-2); URINE WBC 0 - 2 /hpf (0-6)
[2018-01-26 09:25] LABS: URINE BACTERIA FEW (NEG)
[2018-01-26 10:34] VITALS: O2SAT 100
--- NOTE | 2018-01-26 10:35 | CARD ---
APPROVED REPORT Date of service: 01/26/2018 EKG Measurement Heart [id number] ID [id number] <Conclusion> Normal sinus rhythm Normal ECG
--- NOTE | 2018-01-26 11:14 | RAD ---
Date of service: 01/26/2018 HISTORY: psych clearance COMPARISON: 01/10/2018 FINDINGS: LUNGS: The lungs are well inflated and the right lung is clear. There is redemonstration of ill-defined airspace disease in the left lower lobe. PLEURA: No pleural effusions or pneumothorax. CARDIOVASCULAR: The heart is normal in size. No aortic atherosclerotic calcification present. OSSEOUS STRUCTURES: Within normal limits for the patient's age. VISUALIZED UPPER ABDOMEN: Normal. OTHER FINDINGS: None. IMPRESSION: Little interval change in ill-defined airspace disease in the left lower lobe which may represent atelectasis or scarring. Superimposed infection cannot be entirely excluded. Follow-up after medical management is recommended to ensure complete resolution.
--- NOTE | 2018-01-26 13:45 | PCM.BM ---
<Pilo Goins - Last Filed: 01/26/18 13:42> Treatment Plan Problems - Problems identified on initial assessmt DEPRESSIVE SYMPTOMS Date Initiated: 01/26/18 Time Initiated: 13:43 Assessment reference: HP, NA Status: Active INEFFECTIVE COPING Date Initiated: 01/26/18 Time Initiated: 13:44 Assessment reference: HP, NA, Other Status: Active SOCIAL ISOLATION Assessment reference: HP, NA Status: Active Treatment assets and liabiliti Patient Assests: cooperative, ADL independent Patient Liabilities: live alone, physical pain, poor support system, medical problems, legal issue Discharge/Continuing Care - Education Needs Education Needs: Patient Medication, Patient Diagnosis/Disease Process, Patient Coping Skills, Patient Anger Management skills, Patient Community resources, Patient Activities of Daily Living, Patient Health Practices/Safety, Patient Personal Hygiene/Grooming, Patient Aftercare Safety Plan - Discharge Discharge Criteria: Free of Suicidal thoughts, Free of Homicidal thoughts, Free of paranoid thoughts, Ability to care for self Discharge to:: Home <Kami Greene - Last Filed: 01/27/18 10:13> - Diagnosis (1) Mood disorder Status: Acute Interventions: 01/27/18 10:14 Psychoeducation Psychopharmacology/adjustment of medications as needed/ monitoring possible side effects Evaluate pt on daily basis Compliance with medications and follow up appointments Suicide and homicide risk assessment and prevention Relapse prevention Reduction of symptoms Improve functional status Family involvement As outpatient: cognitive behavioral therapy (2) Substance abuse Status: Acute Interventions: 01/27/18 10:14 Monitoring withdrawal symptoms Medical detoxification Pharmacotherapy for alcohol/benzos/opioid dependence Maintaining sobriety Relapse prevention Possible rehabilitation Motivational interviewing 12-step programs: AA meetings <Serene Delarosa - Last Filed: 01/27/18 16:18> Family Contact Family involvement: Famliy/SO not involved
[2018-01-26] MEDS: Lidocaine 5% Patch TD SCH (19:11)
[2018-01-27 07:02] VITALS: BP 151/85; PULSE 68; TEMP 97.6
[2018-01-27] MEDS ORDERED: ASPIRIN 81 MG PO SCH (08:00)
--- NOTE | 2018-01-27 08:25 | CON ---
DATE: 01/26/2018 REQUESTING PHYSICIAN: Kami Greene MD REASON FOR CONSULTATION: Medical management. HISTORY OF PRESENT ILLNESS: The patient is a 52-year-old male who has been under care of multiple physicians in [place], has been admitted through [facility] Emergency Room today for depression. The patient came to the emergency room for depression. The patient reports being depressed. The patient presented for evaluation of depression. According to the ER physician evaluation, the patient presents with depression and anxiety. He has been reporting anxiousness. Denies any suicidal ideation or attempt. CODE STATUS: Full code. LIVING WILL ADVANCE DIRECTIVE: None. ALLERGIES: NONE. Height is 5 feet 7 inches. Weight is 185. BMI is 29. HOME MEDICATIONS: Aspirin 81, Plavix 75 daily and oxycodone 30 mg four times daily. SOCIAL HISTORY: Positive for substance abuse. Positive for alcohol. Positive for smoking. OCCUPATIONAL HISTORY: Not available. FAMILY HISTORY: Not available. PAST MEDICAL AND SURGICAL HISTORY: The patient's past medical and surgical history is positive for chronic back pain, history of coronary artery disease, history of coronary angioplasty, history of bilateral knee arthroscopic surgery, history of right ankle surgery, history of alcohol and nicotine and polysubstance abuse and dependence, history of depression, history of chronic back pain, history of substance abuse. The patient's past medical history appears to be significant for noncompliance, history of hyperlipidemia and hypertriglyceridemia, history of opiate dependence, phencyclidine dependence, history of cocaine use, history of poor compliance. Past medical history is also significant for a history of lumbar spine disk herniation at L4-L5 with disk narrowing, history of lumbar spine degenerative disk disease, history of chronic narcotic-dependent pain syndrome, history of coronary artery disease with angioplasty and stent placement of the mid LAD and angioplasty of the ostial diagonal one, history of angioplasty and stent placement of the right coronary artery, history of double-vessel critical coronary artery disease involving proximal to mid right coronary artery and mid left anterior descending involving ostial diagonal one, history of left ventricular ejection fraction of 55%. The patient's past medical history is also significant for a history of hypertension, history of multiple back surgeries, history of herniated disk, history of anxiety and panic disorder, history of nicotine dependence, history of cannabinoid abuse, history of knee surgeries and ankle surgeries and shoulder surgery. PHYSICAL EXAMINATION GENERAL: The patient is seen and examined in room 517. The patient is seen lying in the bed. VITAL SIGNS: T-max is 98.6; heart rate 57, 76 and 82; blood pressure is 139/86, 114/85, 128/75; respirations 18; O2 sat 96% to 100%. HEAD: Normocephalic, atraumatic. HEENT: Shows pink conjunctivae. Anicteric sclerae. No oropharyngeal lesion. No neck rigidity. CHEST: Symmetrical. LUNGS: Show occasional rhonchi, left more than the right. CARDIOVASCULAR: S1 and S2, regular rhythm. ABDOMEN: Soft. Positive bowel sound. No palpable hepatosplenomegaly noted. GENITALIA: Male. RECTAL: Deferred. EXTREMITIES: Show no pitting edema, no calf tenderness, no Homans sign. NEUROLOGIC: The patient is alert, awake and oriented x3. He is able to move upper and lower extremities without assistance. Cranial nerves II through XII intact. MUSCULOSKELETAL: Shows a body mass index of 29. Gait examination is independent. PSYCHIATRIC: As per Psychiatry evaluation. DIAGNOSTICS: CBC is within normal limit. Chemistry is within normal limit. TSH is 1. Urine is trace protein, few bacteria. toxicology, salicylate negative, Tylenol less than 10, alcohol less than 10. Urine drug screen positive for cocaine and phencyclidine. The patient's chest x-ray shows questionable left lower lobe ill-defined airspace disease. EKG done in the emergency room shows sinus rhythm. The patient was evaluated in the emergency room by the ER physician. The patient was referred to PES. The patient was accepted to Psychiatry by the PES worker. IMPRESSION AND PLAN: 1. Acute exacerbation of anxiety and depression. 2. History of multivessel coronary artery disease, coronary angioplasty. 3. History of hypertension. 4. Active nicotine, alcohol and polysubstance abuse and dependence. 5. Trace proteinuria. 6. Urine drug screen positive for phencyclidine and cocaine. 7. Questionable left lower lobe ill-defined airspace disease, etiology undetermined. 8. Depression. 9. History of chronic narcotic-dependent pain syndrome. 10. History of coronary artery disease. PLAN: At this time, the patient is admitted to psychiatry floor. The patient has been ordered hepatitis panel and HIV secondary to multiple skin tattoos. Lipid panel and thyroid profile ordered for the morning. Hemoglobin A1c, PSA, vitamin D 25-hydroxy ordered. RPR ordered. The patient is currently on Ativan 0.5 mg p.o. every 8 hours p.r.n., Ecotrin 81 mg p.o. daily, Lexapro 10 mg daily, Lidoderm 5% patch to the affected area of the pain ordered, nicotine patch 14 mg daily. The patient is resumed on Plavix 75 mg daily, Sonata 10 mg at bedtime p.r.n. The patient has been ordered Toradol 15 mg IM every 6 hours p.r.n., a total of eight doses for the back pain; Tylenol 650 every 4 hours p.r.n. . The patient has been ordered a repeat chest x-ray PA and lateral because the initial chest x-ray is a portable film. The patient is on heart-healthy diet. At present, the patient's further management will be dependent upon the patient's clinical condition, hemodynamic status and as per the patient's response to therapeutic intervention as per the patient's diagnostic test results and as per recommendation by all the physicians involved in the care of the patient. Dictated and electronically signed, not read. Osiel Ferreira MD
[2018-01-27 08:37] LABS: GLUCOSE,FASTING 90 mg/dL (65-110); HDL CHOLESTEROL 30 mg/dL (29-60)
[2018-01-27 08:48] LABS: LDL CHOLESTEROL 98 mg/dL (0-129)
[2018-01-27 08:57] LABS: FREE T4 0.77 ng/dL (0.78-2.19); T4 7.3 ug/dL (5.5-11.0)
[2018-01-27] MEDS: Lidocaine 5% Patch TD SCH (08:58)
[2018-01-27] MEDS ORDERED: oxyCODONE 30 mg Immediate Release Tab PO PRN (11:18)
[2018-01-27] MEDS ORDERED: oxyCODONE 30 mg Immediate Release Tab PO STA (11:23)
--- NOTE | 2018-01-27 11:26 | PN ---
DATE: 01/27/2018 SUBJECTIVE: The patient is seen in Psychiatry [place] room 517, bed 1. Overnight nurse's notes were reviewed. The patient was not able to get all the labs, which were ordered last night. The patient has been complaining of back pain. For which the patient has been ordered Lidoderm patch and Toradol, but patient is requesting narcotics, which needs to be cleared by Psychiatry. PHYSICAL EXAMINATION: VITAL SIGNS: T-max 97.6; pulse 68; blood pressure 139/86, 151/85; respirations 18; O2 sat 100%. HEENT: Head examination normocephalic, atraumatic. HEENT examination shows pinkish pale conjunctivae. Anicteric sclerae. No oropharyngeal lesion. No neck rigidity. CHEST: Symmetrical. LUNGS: Shows no crackles, rales or wheezing. Occasional rhonchi, anterior lung scott. CARDIOVASCULAR: S1, S2. Regular rhythm. ABDOMEN: Soft. No palpable hepatosplenomegaly. GENITALIA: Male. RECTAL: Deferred. EXTREMITY: Shows no pitting edema, no calf tenderness, no Homans' sign. NEUROLOGICAL: The patient is alert, awake, oriented x3, is able to move upper and lower extremity without assistance. Gait examination is independent. VASCULAR: Palpable pulses. MUSCULOSKELETAL: As per the body mass index. DIAGNOSTICS: Pending from today. IMPRESSION AND PLAN: 1. Acute exacerbation of depression. 2. Hypertension. 3. History of double-vessel coronary artery disease, status post angioplasty and stent placement. 4. Hyperlipidemia. 5. History of chronic narcotic-dependent pain syndrome. 6. History of lumbar spine degenerative disk disease and lumbar spine disk herniation and lumbar spine degenerative disk disease. 7. Hyperlipidemia. 8. History of nicotine dependence. 9. History of questionable polysubstance abuse with urine drug screen positive for phencyclidine and urine drug screen positive for opiates. Plan at this time, the patient is awaiting further diagnostic data, which was ordered yesterday, which will be reviewed. The patient will be continued on therapeutic intervention as per the MAR. The patient is started on aspirin, Plavix and statins. The patient's blood pressure will be monitored and therapeutic intervention will be instituted if the patient's blood pressure stays elevated continuously. The patient has been counseled about cessation of smoking. The patient has been counseled about strict compliance with diet, medications and doctors followup. If needed, the patient may need imaging studies of the spine depending upon the patient's severity of the pain and also regarding the clearance for the use of narcotic for pain issues. Dictated and electronically signed, not read. Osiel Ferreira MD
[2018-01-27 11:34] LABS: HEPATITIS B SURFACE AG Negative (NEGATIVE)
[2018-01-27 11:41] LABS: HEPATITIS A IGM NEGATIVE (NEGATIVE); HEPATITIS B CORE AB NEGATIVE (NEGATIVE)
[2018-01-27 11:52] LABS: HEPATITIS C ANTIBODY NEGATIVE (NEGATIVE)
--- NOTE | 2018-01-27 14:28 | PCM.PSYCH ---
Initial Psychiatric Evaluation - Initial Psychiatric Evaluation Type of Admission: Voluntary Legal Status: Capacity (patient has capacity to sign consent for treatment) Chief Complaint (in patient's own words): "I never said that I'm suicidal, I came here because it was feeling depressed, that is all". Patient's Reaction to Hospitalization: patient was admitted for evaluation of depressive symptoms History of Present Illness and Precipitating Events: shortly patient is 52 year old male, whose past medical history includes chronic back pain, alcohol abuse, substance abuse, and CAD with stents on Plavix, depres shira, and anxiety, presents to the emergency department via EMS complaining of feeling depressed. iin the emergency room patient was making vague statements such as "tired of being tired". Patient never said that he is suicidal, patient never said that he is homicidal, patient required observation, stabilization. Patient was seen and examined today at the treatment team meeting, discussed with staff, previous records reviewed. Patient reported that he was stressed out because "it this time of the year when they feel said because my grandmother couple of years ago, right now I know that I need to take care of my family members graves", pt reported that he was kind of "confused and I didn't know what I was signing in the emergency room", pt reported that he does not want to stay in the hospital because "I am not suicidal or homicidal, I was little depressed that is all, I don't want to stay in the hospital, moreover I have an appointments, I have MRI appointment and dental appointment today at 3pm". as per report pt has h/o incarcerations about two years ago, pt has h/o using alcohol and h/o rehabs, pt relapsed on alcohol about 4 weeks ago. pt is on nicotine patch. pt denied hearing voices or seeing things, denied Paranoid ideations, but thought process was circumstantial and tangential, patient needed to have redirection, but patient is not agitated or aggressive. Medications were confirmed by patient pharmacy [facility] [phone] torvastatin 20 mg daily Nicotine patch 21 mg daily meloxicam 15 mg daily aspirin 81 mg daily Oxycodone 30 mg 4 times a day filled in 01/07/2018 Ibuprofen 800 mg daily Cyclobenzaprine 10 mg daily no psychotropic medications Patient was seen by medical team, please see consultation notes for more detailed information. As per staff patient is demanding to be discharged, but not physical aggres shira, no agitation. 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 01/26/18 08:15 01/26/18 08:15 Lab Results 01/27/18 08:00: 25-OH Vitamin D Total 26.2 L 01/27/18 08:00: Hemoglobin A1c 6.0 01/27/18 08:00: Fasting Glucose 90, Triglycerides 181 H, Cholesterol 148, LDL Cholesterol Direct 98, HDL Cholesterol 30 01/27/18 08:00: Hepatitis A IgM Ab Negative, Hep Bs Antigen Negative, Hep B Core IgM Ab Negative, Hepatitis C Antibody Negative 01/27/18 08:00: Prostate Specific Ag 0.9, Free T4 0.77 L, Thyroxine (T4) 7.3, TSH 3rd Generation 1.58 01/26/18 08:15: Salicylates 1 L, Acetaminophen < 10.0 L 01/26/18 08:15: Free T4 0.95, TSH 3rd Generation 1.00, Alcohol, Quantitative < 10 01/26/18 08:15: Urine Opiates Screen Negative, Urine Methadone Screen Negative, Ur Barbiturates Screen Negative, Ur Phencyclidine Scrn Positive H, Ur Amphetamines Screen Negative, U Benzodiazepines Scrn Negative, U Oth Cocaine Metabols Positive H, U Cannabinoids Screen Negative 01/26/18 08:15: Sodium 140, Potassium 4.1, Chloride 108 H, Carbon Dioxide 24, Anion Gap 12, BUN 21, Creatinine 1.1, Est GFR ( Amer) > 60, Est GFR (Non- Af Amer) > 60, Random Glucose 99, Calcium 8.6, Magnesium 2.3 H, Total Bilirubin 0.3, AST 32, ALT 35, Alkaline Phosphatase 81, Total Protein 7.4, Albumin 4.0, Globulin 3.4, Albumin/Globulin Ratio 1.2 01/26/18 08:15: Urine Color Dark yellow, Urine Appearance Clear, Urine pH 6.0, Ur Specific [place] >= 1.030, Urine Protein Trace H, Urine Glucose (UA) Negative, Urine Ketones Negative, Urine Blood Negative, Urine Nitrate Negative, Urine Bilirubin Negative, Urine Urobilinogen 0.2, Ur Leukocyte Esterase Negative, Urine RBC 0 - 2, Urine WBC 0 - 2, Ur Epithelial Cells None, Urine Bact eria Few 01/26/18 08:15: WBC 6.2, RBC 4.80, Hgb 14.0, Hct 42.0, MCV 87.5, MCH 29.2, MCHC 33.3, RDW 13.8, Plt Count 347, MPV 10.0, Gran % 53.3, Lymph % (Auto) 34.8, Summers % (Auto) 8.7 H, Eos % (Auto) 2.9, Baso % (Auto) 0.3, Gran # 3.30, Lymph # (Auto) 2.2, Summers # (Auto) 0.5, Eos # (Auto) 0.2, Baso # (Auto) 0.02 Vital Signs Temp Pulse Resp BP Pulse Ox 01/27/18 07:00 97.6 F 68 18 151/85 H 01/26/18 16:32 69 139/86 01/26/18 13:46 97.8 F 82 114/85 01/26/18 10:33 98.3 F 76 18 118/70 100 01/26/18 07:54 98.6 F 57 L 18 128/75 96 01/26/18 07:44 98.6 F 57 L 18 128/75 96 ppatient requested to be discharged, submitted 48 hour notice, from this caption writer perspective patient might benefit from this admission, but patient adamantly refused to stay any longer, at present moment patient does not meet the criteria for screening, patient will be discharged AGAINST MEDICAL ADVICE. The patient failed the outpatient lower level of care: Yes Current Medications: Active Medications Generic Name Dose Route Start Last Admin Trade Name Freq PRN Reason Stop Dose Admin Acetaminophen 650 mg 01/26/18 12:21 Tylenol 325mg Tab PO Q4H PRN Pain, moderate (4-7) Aspirin 81 mg 01/27/18 08:00 01/27/18 08:58 Ecotrin PO 81 mg DAILY [facility] Administration Atorvastatin Calcium 40 mg 01/27/18 17:00 Lipitor PO DIN [facility] Clopidogrel Bisulfate 75 mg 01/27/18 08:00 01/27/18 08:58 Plavix PO 75 mg DAILY [facility] Administration Escitalopram Oxalate 10 mg 01/27/18 08:00 01/27/18 08:58 Lexapro PO 10 mg DAILY [facility] Administration Ketorolac Tromethamine 15 mg 01/26/18 18:55 Toradol IM Q6 PRN Pain, moderate (4-7) Lidocaine 1 ea 01/26/18 19:30 01/27/18 08:58 Lidoderm TD 1 ea DAILY [facility] Administration Lorazepam 0.5 mg 01/26/18 12:26 01/27/18 09:08 Ativan PO 0.5 mg Q8H PRN Administration Anxiety Protocol Nicotine 1 patch 01/27/18 08:00 01/27/18 08:58 Nicoderm Cq TD 1 patch DAILY [facility] Administration Zaleplon 10 mg 01/26/18 12:25 01/26/18 21:24 Sonata PO 10 mg HS PRN Administration Insomnia Present on Admission - Present on Admission Any Indicators Present on Admission: No Review of Systems - Review of Systems Systems not reviewed;Unavailable: Acuity of Condition - Constitutional Constitutional: As Per HPI - EENT Eyes: As Per HPI Ears: As Per HPI Nose/Mouth/Throat: As Per HPI - Cardiovascular Cardiovascular: As Per HPI - Respiratory Respiratory: As Per HPI - Gastrointestinal Gastrointestinal: As Per HPI - Genitourinary Genitourinary: As Per HPI - Reproductive: Male Reproductive:Male: As Per HPI - Musculoskeletal Musculoskeletal: As Per HPI - Integumentary Integumentary: As Per HPI - Neurological Neurological: As Per HPI - Psychiatric Psychiatric: As Per HPI - Endocrine Endocrine: As Per HPI - Hematologic/Lymphatic Hematologic: As Per HPI Past Patient History - Past Psychiatric History Previous Treatment History: Inpatient Prior Professional Help: see HPI Prior Psychiatric Treatment: see HPI At what hospital: see HPI Duration: see HPI Nature of Treatment: see HPI Explanation of prior treatment: see HPI - PSYCHIATRIC Hx 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) Hx Substance Use: Yes - Infectious Disease Hx of Infectious Diseases: None - Tetanus Immunizations Tetanus Immunization: Unknown - Past Medical History & Family History Past Medical History?: Yes - CARDIAC Hx Cardiac Disorders: Yes Other/Comment: 3 stents placed in coronary artheries - PULMONARY Hx Respiratory Disorders: No - NEUROLOGICAL Hx Neurological Disorder: No - HEENT Hx HEENT Problems: No - RENAL Hx Chronic Kidney Disease: No - ENDOCRINE/METABOLIC Hx Endocrine Disorders: No - HEMATOLOGICAL/ONCOLOGICAL Hx Blood Disorders: No - INTEGUMENTARY Hx Dermatological Problems: No - MUSCULOSKELETAL/RHEUMATOLOGICAL Hx Musculoskeletal Disorders: Yes Hx Arthritis: Yes (multiple back surgeries) - GASTROINTESTINAL Hx Gastrointestinal Disorders: No - GENITOURINARY/GYNECOLOGICAL Hx Genitourinary Disorders: No - SURGICAL HISTORY Hx Coronary Stent: Yes (x3) Hx Dilation and Curettage: Yes Other/Comment: L4 L5 herniated disk /r ankle/r knee x2/l knee x2/r shoulder/fossa l-3,l-4,l-5 - ANESTHESIA Hx Anesthesia: Yes Hx Anesthesia Reactions: No Hx Malignant Hyperthermia: No - Medical/Surgical History Reviewed & confirmed: by co Meds Allergies/Adverse Reactions: Allergies Allergy/AdvReac Type Severity Reaction Status Date / Time No Known Allergies Allergy Verified 01/26/18 19:37 Mental Status Examination - Personal Presentation Personal Presentation: Looks stated age - Affect Affect: Constricted - Motor Activity Motor Activity: Calm - Reliability in Providing Information Reliability in Providing Information: Fair - Speech Speech: Tangential - Mood Mood: Depressed ("little depressed, that's all") - Formal Thought Process Formal Thought Process: No Impairment - Obsessions/Compulsions Obsessions: None Compulsions: None - Cognitive Functions Orientation: Person, Place, Situation, Time Sensorium: Alert Attention/Concentration: Easily distracted Abstract Thinking: [place] Estimate of Intelligence: Average Judgement: Intact, as evidence by: Insight regarding need for hospitalization - Risk Risk: Diminished functioning - Strength & Assets Inventory Strength & Assets Inventory: Employment status, Cooperative - Limitations Limitations: Other (does not want to stay in the hospital any longer) Psychiatric Physical Exam - Physical Exam Reviewed and confirmed: Emergency Department Physical Exam Results - Vital Signs Recent Vital Signs: Last Vital Signs Temp 97.6 F 01/27/18 07:00 Pulse 68 01/27/18 07:00 Resp 18 01/27/18 07:00 BP 151/85 H 01/27/18 07:00 Pulse Ox 100 01/26/18 10:33 - Labs Result Diagrams: 01/26/18 08:15 01/26/18 08:15 Labs: Laboratory Results - last 24 hr 01/27/18 01/27/18 08:00 08:00 Fasting Glucose 90 Triglycerides 181 H Cholesterol 148 LDL Cholesterol Direct 98 HDL Cholesterol 30 Prostate Specific Ag 0.9 Free T4 0.77 L Thyroxine (T4) 7.3 TSH 3rd Generation 1.58 - EKG Data EKG Interpreted by: ER Physician EKG shows normal: Sinus rhythm DSM Plan - DSM 5 DSM 5 Diagnosis: 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 Stimulants use disorder, urine drug screen positive for amphetamines and cocaine - Recommended/Plan of Treatment Treatment Recommendations and Plan of Treatment: Milieu/structure/supportive therapy Medical consult appreciated, see medical team note for more detailed info SW consultation for discharge plan and social issues Med management patient does not want to stay in the hospital patient submitted 48 hour notice, patient does not want to stay in the hospital, at present moment patient pose no imminent danger to self or others patient was observed for 24 hours Pt was educated about risk/benefits and alternatives of medications, coping strategies (safety plan, suicide prevention), relapse prevention, importance of follow up with psychiatrist and therapist, stay away from drugs/alcohol/smoking Projected ELOS: pt will be d/c AMA Prognosis: fair - Tobacco Cessation Tobacco Use Status for the last 30 days: Non User Tobacco Use Treatment Practical Counseling Provided: Yes Type of Medication Provided: Nicoderm CQ (he) - Alcohol or Substance Abuse Does the patient have an Alcohol or Substance Abuse Disorder: Yes Initial Psych Certification - Initial Certification I certify that the inpatient psychiatric facility admission was medically necessary for either: Treatment which could reasonbly be expected to improve pt's condition I estimate of hospitalization is necessary for proper treatment of the patient: 7 Unit of Time: Days My plans for post-hospital care for this patient are: [facility] inpatient rehab
--- NOTE | 2018-01-27 14:35 | PCM.PYCHDC ---
Mental Status Examination - Mental Status Examination Orientation: Person, Place, Situation, Time Memory: Intact Mood: Neutral Affect: Constricted Speech: Appropriate Attention: WNL Concentration: WNL Association: WNL Fund of Knowledge: WNL Formal Thought Process: Circumstantial Description of patient's judgement and insight: Pt presented with fair insight into mental and medical illness, but refused to stay in the hospital, pt was attending groups, was calm, cooperative, socially appropriate, no behavioral incidents, no agitation, no aggression. Psychotic Thoughts and Behaviors: Pt denied v/a/t hallucinations, denied paranoid ideations, pt does not appear to be psychotic, and thought process is goal directed. Suicidal Ideation: No Current Homicidal Ideation?: No Plan: pt adamantly denied thoughts of harming self or others denied intent or plan. Discharge Summary - Discharge Note Reason for Hospitalization: patient was admitted for evaluation of depressive symptoms Psychiatric History (includes Medical, Family, Personal Hx): see HPI Laboratory Data: Abnormal Lab Results 01/27/18 01/27/18 01/27/18 08:00 08:00 08:00 Fasting Glucose 90 Hemoglobin A1c Triglycerides 181 H Cholesterol 148 LDL Cholesterol Direct 98 HDL Cholesterol 30 Prostate Specific Ag 0.9 25-OH Vitamin D Total Free T4 0.77 L Thyroxine (T4) 7.3 TSH 3rd Generation 1.58 Hepatitis A IgM Ab Negative Hep Bs Antigen Negative Hep B Core IgM Ab Negative Hepatitis C Antibody Negative 01/27/18 01/27/18 08:00 08:00 Fasting Glucose Hemoglobin A1c 6.0 Triglycerides Cholesterol LDL Cholesterol Direct HDL Cholesterol Prostate Specific Ag 25-OH Vitamin D Total 26.2 L Free T4 Thyroxine (T4) TSH 3rd Generation Hepatitis A IgM Ab Hep Bs Antigen Hep B Core IgM Ab Hepatitis C Antibody Consultations:: List each consultation separately and include: 1. Reason for request. 2. Findings. 3. Follow-up Consultations: medical consult appreciated please see notes for more detailed information Summary of Hospital Course include:: 1. Description of specific treatment plan utilized for patients during their course of treatmen. 2. Summarize the time- course for resolution of acute symptoms and/or regressed behaviors. 3. Describe issues identified and worked on during hospitalization. 4. Describe medication utilized. 5. Describe medical problems identified and treated. 6. Reassessment of suicide risk Summary of Hospital Course: shortly patient is 52 year old male, whose past medical history includes chronic back pain, alcohol abuse, substance abuse, and CAD with stents on Plavix, depression, and anxiety, presents to the emergency department via EMS complaining of feeling depressed. iin the emergency room patient was making vague statements such as "tired of being tired". Patient never said that he is suicidal, patient never said that he is homicidal, patient required observation, stabilization. Patient was seen and examined today at the treatment team meeting, discussed with staff, previous records reviewed. Patient reported that he was stressed out because "it this time of the year when they feel said because my grandmother couple of years ago, right now I know that I need to take care of my family members graves", pt reported that he was kind of "confused and I didn't know what I was signing in the emergency room", pt reported that he does not want to stay in the hospital because "I am not suicidal or homicidal, I was little depressed that is all, I don't want to stay in the hospital, moreover I have an appointments, I have MRI appointment and dental appointment today at 3pm". as per report pt has h/o incarcerations about two years ago, pt has h/o using alcohol and h/o rehabs, pt relapsed on alcohol about 4 weeks ago. pt is on nicotine patch. pt denied hearing voices or seeing things, denied Paranoid ideations, but thought process was circumstantial and tangential, patient needed to have redirection, but patient is not agitated or aggressive. Medications were confirmed by patient pharmacy [facility] [phone] torvastatin 20 mg daily Nicotine patch 21 mg daily meloxicam 15 mg daily aspirin 81 mg daily Oxycodone 30 mg 4 times a day filled in 01/07/2018 Ibuprofen 800 mg daily Cyclobenzaprine 10 mg daily no psychotropic medications Patient was seen by medical team, please see consultation notes for more detailed information. As per staff patient is demanding to be discharged, but not physical aggression, no agitation. 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 01/26/18 08:15 01/26/18 08:15 Lab Results 01/27/18 08:00: 25-OH Vitamin D Total 26.2 L 01/27/18 08:00: Hemoglobin A1c 6.0 01/27/18 08:00: Fasting Glucose 90, Triglycerides 181 H, Cholesterol 148, LDL Cholesterol Direct 98, HDL Cholesterol 30 01/27/18 08:00: Hepatitis A IgM Ab Negative, Hep Bs Antigen Negative, Hep B Core IgM Ab Negative, Hepatitis C Antibody Negative 01/27/18 08:00: Prostate Specific Ag 0.9, Free T4 0.77 L, Thyroxine (T4) 7.3, TSH 3rd Generation 1.58 01/26/18 08:15: Salicylates 1 L, Acetaminophen < 10.0 L 01/26/18 08:15: Free T4 0.95, TSH 3rd Generation 1.00, Alcohol, Quantitative < 10 01/26/18 08:15: Urine Opiates Screen Negative, Urine Methadone Screen Negative, Ur Barbiturates Screen Negative, Ur Phencyclidine Scrn Positive H, Ur Amphetamines Screen Negative, U Benzodiazepines Scrn Negative, U Oth Cocaine Metabols Positive H, U Cannabinoids Screen Negative 01/26/18 08:15: Sodium 140, Potassium 4.1, Chloride 108 H, Carbon Dioxide 24, Anion Gap 12, BUN 21, Creatinine 1.1, Est GFR ( Amer) > 60, Est GFR (Non- Af Amer) > 60, Random Glucose 99, Calcium 8.6, Magnesium 2.3 H, Total Bilirubin 0.3, AST 32, ALT 35, Alkaline Phosphatase 81, Total Protein 7.4, Albumin 4.0, Globulin 3.4, Albumin/Globulin Ratio 1.2 01/26/18 08:15: Urine Color Dark yellow, Urine Appearance Clear, Urine pH 6.0, Ur Specific [place] >= 1.030, Urine Protein Trace H, Urine Glucose (UA) Negative, Urine Ketones Negative, Urine Blood Negative, Urine Nitrate Negative, Urine Bilirubin Negative, Urine Urobilinogen 0.2, Ur Leukocyte Esterase Negative, Urine RBC 0 - 2, Urine WBC 0 - 2, Ur Epithelial Cells None, Urine Bacteria Few 01/26/18 08:15: WBC 6.2, RBC 4.80, Hgb 14.0, Hct 42.0, MCV 87.5, MCH 29.2, MCHC 33.3, RDW 13.8, Plt Count 347, MPV 10.0, Gran % 53.3, Lymph % (Auto) 34.8, [place] % (Auto) 8.7 H, Eos % (Auto) 2.9, Baso % (Auto) 0.3, Gran # 3.30, Lymph # (Auto) 2.2, [place] # (Auto) 0.5, Eos # (Auto) 0.2, Baso # (Auto) 0.02 Vital Signs Temp Pulse Resp BP Pulse Ox 01/27/18 07:00 97.6 F 68 18 151/85 H 01/26/18 16:32 69 139/86 01/26/18 13:46 97.8 F 82 114/85 01/26/18 10:33 98.3 F 76 18 118/70 100 01/26/18 07:54 98.6 F 57 L 18 128/75 96 01/26/18 07:44 98.6 F 57 L 18 128/75 96 ppatient requested to be discharged, submitted 48 hour notice, from this sports book writer perspective patient might benefit from this admission, but patient adamantly refused to stay any longer, at present moment patient does not meet the criteria for screening, patient will be discharged AGAINST MEDICAL ADVICE. Patient was observed by staff for past 24 hours, no agitation, no aggression, patient has future oriented plans, patient has dental appointment today, patient also has an MRI appointment today. Moreover depressive symptoms more mostly related to substances, urine drug screen was positive for amphetamine as well as cocaine. Patient might benefit from further hospitalization, but patient refused to stay in the hospital, patient does not present to be psychotic, does not present to be depressed, adamantly denied thoughts of harming himself or others, does not meet the criteria for screening by [facility]. At the time of the discharge pt denied been depressed, denied thoughts of harming self or others, denied psychotic symptoms, and pt does not appeared to be psychotic, denied been anxious, pt is not in imminent danger to self or others, pt refused to have information about outpatient providers, it is patient responsibility to follow up with outpatient clinic if pt willing to, PMD as well as specialists . In case pt will need to obtain results of studies pending at discharge pt was provided with contact information of Psychiatric Inpatient unit [phone] as well as Medical Record Department [phone]. Naltrexone treatment not indicated at this time, naltrexone is not indicated for stimulant use disorder Counseling about smoking and alcohol cessation provided AA meetings as well as smoking cessation treatment program information was provided by the no prescriptions provided pt reported that he has all his current meds at home Pt was educated about safety plan in case of worsening of symptoms or in case of suicidal or homicidal ideation call 911 or go to the nearest ER, also was educated to take meds as prescribed and stay away from drugs, pt verbalized understanding. - Diagnosis (1) Mood disorder Current Visit: Yes Status: Chronic Priority: Medium (2) Substance abuse Current Visit: Yes Status: Chronic Priority: High - Final Diagnosis (DSM 5) Condition upon Discharge: STABLE Disposition: AGAINST MEDICAL ADVICE Follow-up Treatment Plan: At the time of the discharge pt denied been depressed, denied thoughts of harming self or others, denied psychotic symptoms, and pt does not appeared to be psychotic, denied been anxious, pt is not in imminent danger to self or others, pt refused to have information about outpatient providers, it is patient responsibility to follow up with outpatient clinic if pt willing to, PMD as well as specialists . In case pt will need to obtain results of studies pending at discharge pt was provided with contact information of Psychiatric Inpatient unit [phone] as well as Medical Record Department [phone]. Naltrexone treatment not indicated at this time, naltrexone is not indicated for stimulant use disorder Counseling about smoking and alcohol cessation provided AA meetings as well as smoking cessation treatment program information was provided by the no prescriptions provided pt reported that he has all his current meds at home Pt was educated about safety plan in case of worsening of symptoms or in case of suicidal or homicidal ideation call 911 or go to the nearest ER, also was educated to take meds as prescribed and stay away from drugs, pt verbalized understanding. - Smoking Cessation Smoking Cessation Medication prescribed: No Reason for not providing: pt has nicotine patches at home - Antipsychotic Medications Pt discharged on 2 or more routine antipsychotic medications: No
== END 2018-01-27 15:19 | disposition left against medical advice (07) | DRG 757 ==
LOC: ED 07:43 → ERH 10:40 → PSYC 11:04
PROVIDERS: ADMIT Psychiatry & Neurology Psychiatry; ATTEND Psychiatry & Neurology Psychiatry
DX: F06.31 Mood disorder due to known physiological condition with depressive features (principal); F11.24 Opioid dependence with opioid-induced mood disorder; F41.0 Panic disorder [episodic paroxysmal anxiety]; I10 Essential (primary) hypertension; E78.5 Hyperlipidemia, unspecified; F17.200 Nicotine dependence, unspecified, uncomplicated; Z91.19 Patient's noncompliance with other medical treatment and regimen; I25.10 Atherosclerotic heart disease of native coronary artery without angina pectoris; E78.1 Pure hyperglyceridemia; F19.10 Other psychoactive substance abuse, uncomplicated; Z79.02 Long term (current) use of antithrombotics/antiplatelets; Z79.1 Long term (current) use of non-steroidal anti-inflammatories (NSAID); Z79.82 Long term (current) use of aspirin; Z95.5 Presence of coronary angioplasty implant and graft

== ENCOUNTER 2018-03-29 04:16 | Emergency (ER) | payer OTHER ==
[2018-03-29 04:17] VITALS: BMI 29.0
[2018-03-29 04:40] VITALS: BP 142/81; PULSE 62; RESP 16; TEMP 97.8; O2SAT 93
--- NOTE | 2018-03-29 05:24 | ED PDOC ---
Arrival/HPI - General Historian: EMS - History of Present Illness Narrative History of Present Illness (Text): 03/29/18 05:20 A 53 year old male, presents to the emergency department via EMS for further evaluation. Patient appears intoxicated in the emergency department. The patient denies fevers, chills, headache, dizziness, chest pain, shortness of breath, dyspnea on exertion, cough, abdominal pain, nausea, vomiting, diarrhea, back pain, neck pain, urinary/bowel changes, or any other complaint. Time/Duration: Prior to Arrival Symptom Onset: Sudden Symptom Course: Unchanged Activities at Onset: Rest, Light <Nabeel Ramos - Last Filed: 03/29/18 07:35> <Dayna Wiggins - Last Filed: 03/29/18 09:17> - General Chief Complaint: Alcohol Ingestion Time Seen by Provider: 03/29/18 04:36 Past Medical History - Provider Review Nursing Documentation Reviewed: Yes - Past History Past History: No Previous - Infectious Disease Hx of Infectious Diseases: None - Tetanus Immunization Tetanus Immunization: Unknown - Past Medical History Past Medical History: Non-Contributing - Cardiac Hx Cardiac Disorders: Yes Other/Comment: 3 stents placed in coronary artheries - Pulmonary Hx Respiratory Disorders: No - Neurological Hx Neurological Disorder: No - HEENT Hx HEENT Disorder: No - Renal Hx Renal Disorder: No - Endocrine/Metabolic Hx Endocrine Disorders: No - Hematological/Oncological Hx Blood Disorders: No - Integumentary Hx Dermatological Disorder: No - Musculoskeletal/Rheumatological Hx Musculoskeletal Disorders: Yes Hx Arthritis: Yes (multiple back surgeries) - Gastrointestinal Hx Gastrointestinal Disorders: No - Genitourinary/Gynecological Hx Genitourinary Disorders: No - Psychiatric Hx 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) Hx Substance Use: Yes - Past Surgical History Past Surgical History: Non-Contributing - Surgical History Hx Coronary Stent: Yes (x3) Hx Dilation and Curettage: Yes Other/Comment: L4 L5 herniated disk /r ankle/r knee x2/l knee x2/r shoulder/fossa l-3,l-4,l-5 - Anesthesia Hx Anesthesia: Yes Hx Anesthesia Reactions: No Hx Malignant Hyperthermia: No - Suicidal Assessment Feels Threatened In Home Enviroment: No <Nabeel Ramos - Last Filed: 03/29/18 07:35> Family/Social History - Physician Review Nursing Documentation Reviewed: Yes Family/Social History: No Known Family HX Smoking Status: Heavy Smoker > 10 Cigarettes Daily Hx Alcohol Use: Yes Hx Substance Use: Yes Substance used: pcp last wk Hx Substance Use Treatment: No <Nabeel Ramos - Last Filed: 03/29/18 07:35> Allergies/Home Meds <RichardNabeel - Last Filed: 03/29/18 07:35> <Dayna Wiggins - Last Filed: 03/29/18 09:17> Allergies/Adverse Reactions: Allergies No Known Allergies Allergy (Verified 03/29/18 04:29) Home Medications: Home Meds Medication Instructions Recorded Confirmed oxyCODONE [oxyCODONE Immediate 30 mg PO QID 12/08/16 01/26/18 Release Tab] Adult Low Dose Aspirin EC 81 mg PO DAILY 01/26/18 01/26/18 Review of Systems - Physician Review All systems were reviewed & negative as marked: Yes - Review of Systems Constitutional: absent: Fevers Respiratory: absent: SOB, Cough Cardiovascular: absent: Chest Pain, JOHNSON Gastrointestinal: absent: Abdominal Pain, Stool Changes, Diarrhea, Nausea, Vomiting Genitourinary Male: absent: Urinary Output Changes Musculoskeletal: absent: Back Pain, Neck Pain Neurological: absent: Headache, Dizziness <Nabeel Ramos - Last Filed: 03/29/18 07:35> Physical Exam - Physical Exam Narrative Physical Exam (Text): 03/29/18 05:22 Gen: VS reviewed, alert, well developed, well nourished, nontoxic, mild distress. ENT: normal pharynx. Eye: EOMI, PERRL. Neck: no JVD, supple, no adenopathy. CV: regular rate, regular rhythm, no rubs, no murmur, no gallops, S1, S2, pulses equal and strong. Pulm: no distress, clear to auscultation, no wheeze, no rhonchi, breath sounds equal, no rales. Abd: soft, nontender, no guarding, no rebound, no rigidity, normal bowel sounds. Ext: no edema. Skin: good color, no rash, no cyanosis. Psych: limited secondary to alcohol intoxication. Neuro: limited secondary to alcohol intoxication. Vital Signs Reviewed: Yes Vital Signs Temp Pulse Resp BP Pulse Ox 03/29/18 04:37 97.8 F 62 16 142/81 93 L Temperature: Afebrile Blood Pressure: Normal Pulse: Regular Respiratory Rate: Normal Appearance: Positive for: Well-Appearing, Non-Toxic, Comfortable Pain Distress: None Mental Status: Positive for: Alert and Oriented X 3 <Nabeel Ramos - Last Filed: 03/29/18 07:35> Vital Signs Temp Pulse Resp BP Pulse Ox 03/29/18 04:37 97.8 F 62 16 142/81 93 L <Dayna Wiggins - Last Filed: 03/29/18 09:17> Medical Decision Making ED Course and Treatment: 03/29/18 05:23 Impression: A 53 year old male is brought into the emergency department for alcohol intoxication. Plan: -- Reassess and disposition Progress Notes: 03/29/18 05:24 03/29/18 06:11 patient was uncooperative, attempting to walk out of the ED, could not be talked down, was not particular aggressive but patient could not be redirected. at that time the decision was made to medically sedate the patient for his safety. Patient sedated with geodon 20mg under my supervision. The patient was reassessed by me 15 minutes after medication administration. Patient re-assessed and found to be with resolved agitation, sleeping comfortably, with stable vitals. In summary, pharmacologic intervention targeted at this patients underlying illness was successful in alleviating agitation, facilitating an accurate assessment and ensuring safety for the patient, staff and others. Will continue to observe until clinical sobriety. 03/29/18 06:17 03/29/18 07:[address] wiggins <Nabeel Ramos - Last Filed: 03/29/18 07:35> ED Course and Treatment: 03/29/18 09:10 Patient re-assessed, Alert and Orientedx3, speech is coherent, steady gait, and vitals are stable. Patient stable and ready for discharge. - Medication Orders Current Medication Orders: Discontinued Medications Ziprasidone (Geodon Inj) 20 mg IM STAT STA; Protocol Stop: 03/29/18 05:27 Last Admin: 03/29/18 05:39 Dose: 20 mg IM Administration Charges Document 03/29/18 05:39 IT (Rec: 03/29/18 05:39 IT [id number]) Injection Site MAR Injection Site Right Deltoid Charges for Administration # of IM Administrations 1 <Dayna Wiggins - Last Filed: 03/29/18 09:17> - Scribe Statement The provider has reviewed the documentation as recorded by the Jesus Baird Provider Lucianaibe Attestation: All medical record entries made by the Scribe were at my direction and personally dictated by me. I have reviewed the chart and agree that the record accurately reflects my personal performance of the history, physical exam, medical decision making, and the department course for this patient. I have also personally directed, reviewed, and agree with the discharge instructions and disposition. <Nabeel Ramos - Last Filed: 03/29/18 07:35> Disposition/Present on Arrival - Present on Arrival History of DVT/PE: No History of Uncontrolled Diabetes: No Urinary Catheter: No History of Decub. Ulcer: No History Surgical Site Infection Following: None <Nabeel Ramos - Last Filed: 03/29/18 07:35> - Present on Arrival Any Indicators Present on Arrival: No - Disposition Have Diagnosis and Disposition been Completed?: Yes Disposition Time: 09:14 Patient Plan: Discharge <Dayna Wiggins - Last Filed: 03/29/18 09:17> - Disposition Diagnosis: Alcohol intoxication Disposition: HOME/ ROUTINE Condition: STABLE Discharge Instructions (ExitCare): Alcohol Abuse and Alcoholism (DC) Additional Instructions: CHANDAN BAZZI, thank you for letting us take care of you today. Your provider was Dayna Wiggins MD and you were treated for ETOH. The emergency medical care you received today was directed at your acute symptoms. If you were prescribed any medication, please fill it and take as directed. It may take several days for your symptoms to resolve. Return to the Emergency Department if your symptoms worsen, do not improve, or if you have any other problems. Please contact your doctor in 2 days for a follow up appointment. Bring any paperwork you were given at discharge with you along with any medications you are taking to your follow up visit. Our treatment cannot replace ongoing medical care by a primary care provider outside of the emergency department. Thank you for allowing the [facility] team to be part of your care today. If you had an X-Ray or CT scan: A Radiologist will review the ED reading if any change in treatment is needed we will contact you. If you had a blood, urine, or wound culture: It will take several days for the results, if any change in treatment is needed we will contact you. If you had an STI test: It will take 48 hours for the results. Please call after 1 week if you have not heard back. Referrals: Richard eWlsh JD, MD [Family Provider] - Follow up with primary Forms: [employer] (Greek)
== END 2018-03-29 10:20 | disposition home or self-care (01) ==
LOC: ED 04:16
DX: F10.129 Alcohol abuse with intoxication, unspecified (principal); F17.210 Nicotine dependence, cigarettes, uncomplicated
CPT/HCPCS: 96372; 99283; J3486

== ENCOUNTER 2018-03-31 13:56 | Emergency (ER) | payer OTHER ==
[2018-03-31 14:14] VITALS: BMI 27.6
[2018-03-31 14:19] VITALS: BP 122/83; PULSE 82; RESP 18; TEMP 97.6; O2SAT 97
[2018-03-31] MEDS ORDERED: Haloperidol Lactate 2 mg/ml Liquid PO STA (15:41)
[2018-03-31 15:57] LABS: BASO # 0.02 K/mm3 (0.0-2.0); BASO % 0.2 % (0.0-3.0); EOS # 0.1 (0.0-0.7); GRAN # 6.78 (1.4-6.5); GRAN % 64.8 % (50.0-68.0); HEMOGLOBIN 14.4 g/dL (14.0-18.0); LYMPH # 2.8 (1.2-3.4); LYMPH % 27.2 % (22.0-35.0); MEAN CELL VOLUME 87.3 fl (80.0-105.0); MEAN CORPUSCULAR HEMOGLOBIN 29.5 pg (25.0-35.0); MEAN CORPUSCULAR HGB CONC 33.8 g/dl (31.0-37.0); MEAN PLATELET VOLUME 10.7 fl (7.0-11.0); MONO # 0.7 (0.1-0.6); MONO % 6.8 % (1.0-6.0); RBC 4.88 10^6/uL (3.5-6.1); RED CELL DISTRIBUTION WIDTH 14.3 % (11.5-14.5); WHITE BLOOD COUNT 10.5 10^3/uL (4.5-11.0)
[2018-03-31 16:01] LABS: ALB/GLOB RATIO 1.2 (1.1-1.8); ALBUMIN 4.2 g/dL (3.0-4.8); ALT/SGPT 32 U/L (7-56); AST/SGOT 29 U/L (17-59); BLOOD UREA NITROGEN 18 mg/dL (7-21); CALCIUM 9.1 mg/dL (8.4-10.5); GFR NON-AFRICAN AMERICAN > 60
[2018-03-31 16:02] LABS: ACETAMINOPHEN < 10.0 ug/ml (10.0-20.0); SALICYLATE < 1 mg/dL (2.0-20.0)
--- NOTE | 2018-03-31 16:05 | ED PDOC ---
Arrival/HPI - General Chief Complaint: Psychiatric Evaluation Time Seen by Provider: 03/31/18 14:22 - History of Present Illness Narrative History of Present Illness (Text): 03/31/18 16:00 53 m presents to the ED for psychiatric evaluation after being found licking the wall. Patient reports that he does not know or understand why he is here in the ED. Patient offers no physical complaints. Patient states he has never been admitted to the hospital for psychiatric care. Past Medical History - Provider Review Nursing Documentation Reviewed: Yes - Past History Past History: No Previous - Infectious Disease Hx of Infectious Diseases: None - Tetanus Immunization Tetanus Immunization: Unknown - Past Medical History Past Medical History: Non-Contributing - Cardiac Hx Cardiac Disorders: Yes Other/Comment: 3 stents placed in coronary artheries - Pulmonary Hx Respiratory Disorders: No - Neurological Hx Neurological Disorder: No - HEENT Hx HEENT Disorder: No - Renal Hx Renal Disorder: No - Endocrine/Metabolic Hx Endocrine Disorders: No - Hematological/Oncological Hx Blood Disorders: No - Integumentary Hx Dermatological Disorder: No - Musculoskeletal/Rheumatological Hx Musculoskeletal Disorders: Yes Hx Arthritis: Yes (multiple back surgeries) - Gastrointestinal Hx Gastrointestinal Disorders: No - Genitourinary/Gynecological Hx Genitourinary Disorders: No - Psychiatric Hx 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) Hx Substance Use: Yes - Past Surgical History Past Surgical History: Non-Contributing - Surgical History Hx Coronary Stent: Yes (x3) Hx Dilation and Curettage: Yes Other/Comment: L4 L5 herniated disk /r ankle/r knee x2/l knee x2/r shoulder/fossa l-3,l-4,l-5 - Anesthesia Hx Anesthesia: Yes Hx Anesthesia Reactions: No Hx Malignant Hyperthermia: No - Suicidal Assessment Feels Threatened In Home Enviroment: No Family/Social History - Physician Review Nursing Documentation Reviewed: Yes Family/Social History: No Known Family HX Smoking Status: Heavy Smoker > 10 Cigarettes Daily Hx Alcohol Use: Yes Hx Substance Use: Yes Substance used: pcp last wk Hx Substance Use Treatment: No Allergies/Home Meds Allergies/Adverse Reactions: Allergies No Known Allergies Allergy (Verified 03/29/18 04:29) Home Medications: Home Meds Medication Instructions Recorded Confirmed RX: oxyCODONE [oxyCODONE Immediate 30 mg PO QID 12/08/16 01/26/18 Release Tab] Adult Low Dose Aspirin EC 81 mg PO DAILY 01/26/18 01/26/18 Review of Systems - Physician Review All systems were reviewed & negative as marked: Yes Physical Exam - Physical Exam Narrative Physical Exam (Text): 03/31/18 16:02 Gen: VS reviewed, alert, well developed, well nourished, nontoxic, mild distress Eye: EOMI, PERRL Neck: supple CV: regular rate, regular rhythm, no rubs,no murmur, S1, S2 Pulm: no distress, clear to auscultation, no wheeze, no rhonchi, breath sounds equal, no rales Abd: soft, nontender Skin: good color, no rash, no cyanosis Psych: irritable and bizarre affect Neuro: oriented x3, CN2-12 intact grossly, motor intact, sensation intact Vital Signs Temp Pulse Resp BP Pulse Ox 03/31/18 14:18 97.6 F 82 18 122/83 97 Medical Decision Making ED Course and Treatment: 03/31/18 19:05 Pt was physically and verbally abusive and inappropriate to ED staff. Pt was clinically sober. Did not present to the ED for Suicidal ideation/Homicidal ideation. Pt was discharged into custody with police in agreement with [facility]ES. - RAD Interpretation Radiology Orders: 03/31/18 15:37 CHEST ONE VIEW [RAD] Stat - Medication Orders Current Medication Orders: Discontinued Medications Haloperidol (Haldol) 1 mg PO ONCE STA; Protocol Stop: 03/31/18 15:39 - Scribe Statement The provider has reviewed the documentation as recorded by the Scribe Disposition/Present on Arrival - Present on Arrival Any Indicators Present on Arrival: No History of DVT/PE: No History of Uncontrolled Diabetes: No Urinary Catheter: No History of Decub. Ulcer: No History Surgical Site Infection Following: None - Disposition Have Diagnosis and Disposition been Completed?: Yes Diagnosis: Drug abuse Disposition: HOME/ ROUTINE Disposition Time: 19:05 Patient Plan: Discharge Condition: STABLE Discharge Instructions (ExitCare): Drug Abuse and Drug Addiction (DC) Additional Instructions: patient is stable for discharge and incarceration Forms: [employer] ([place]), WORK NOTE
--- NOTE | 2018-04-01 11:06 | CARD ---
APPROVED REPORT Date of service: 03/31/2018 EKG Measurement Heart [id number] NM [id number] [id number] <Conclusion> Normal sinus rhythm Possible Inferior infarct, age undetermined Abnormal ECG
== END 2018-03-31 18:55 | disposition home or self-care (01) ==
LOC: ED 13:56
DX: F19.10 Other psychoactive substance abuse, uncomplicated (principal); F17.210 Nicotine dependence, cigarettes, uncomplicated